=== PATIENT | female | born 1935 ===

== ENCOUNTER 2020-03-15 09:38 | Outpatient (REF) | payer MEDICARE, SELFPAY | END 2020-03-15 09:39 | disposition home or self-care (01) | LOC: HO.XRAY 09:38 | PROVIDERS: PCP Family Medicine; Visit Provider Family Medicine | DX: Z13.89 Encounter for screening for other disorder (principal) ==

== ENCOUNTER 2020-03-21 09:49 | Outpatient (REF) | payer MEDICARE, SELFPAY | END 2020-03-21 09:50 | disposition home or self-care (01) | LOC: HO.NEURO 09:49 | PROVIDERS: PCP Family Medicine; Visit Provider Family Medicine | DX: Z13.89 Encounter for screening for other disorder (principal) ==

== ENCOUNTER 2020-04-03 09:01 | Outpatient (REF) | payer MEDICARE, SELFPAY ==
--- NOTE | 2020-04-03 09:30 | EMG_ITS ---
HISTORY OF PRESENT ILLNESS: This 85-year-old woman with a 6-month history of bilateral upper extremity pain, numbness, and tingling with the left side being worse than the right. It also wakes her up at night. She has a history of diabetes for more than 30 years and is not insulin dependent. PHYSICAL EXAMINATION: On examination, she is alert and oriented with normal intellectual functions. Cranial nerves II through XII are normal. Muscle tone and strength are normal in all 4 extremities. Deep tendon reflexes symmetrical. No Tinel or Phalen sign. IMPRESSION: Rule out carpal tunnel syndrome. NERVE CONDUCTION EMG STUDY: Moderately severe carpal tunnel syndrome on the left, moderate carpal tunnel syndrome on the right. Mild compression of the right ulnar nerve at the elbow. Normal EMG of the left C5 through T1 innervated muscles. MD LORRI Ramirez/ISAÍAS / [id number]
== END 2020-04-03 09:02 | disposition home or self-care (01) ==
LOC: HO.NEURO 09:01
PROVIDERS: PCP Family Medicine; Visit Provider Family Medicine
DX: R20.2 Paresthesia of skin (principal)
CPT/HCPCS: 95860; 95886; 95913

== ENCOUNTER 2020-04-16 10:18 | Outpatient (REF) | payer MEDICARE, SELFPAY ==
--- NOTE | 2020-04-16 10:27 | XR_ITS ---
EXAMINATION: XR HAND, LEFT CLINICAL INFORMATION: Pain COMPARISON: Previous x-ray of the left wrist May 2007 TECHNIQUE: PA, lateral, and oblique views of the left hand. FINDINGS: Bone alignment is normal. No fracture or dislocation is seen. 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 There is periarticular soft tissue opacity calcification adjacent to the third MCP joint and in the region of the triangular fibrocartilage complex.. 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 Periarticular soft tissue calcification adjacent to the third MCP joint and in the region of the triangular fibrocartilage complex.
--- NOTE | 2020-04-16 10:27 | XR_ITS ---
EXAMINATION: XR HAND, RIGHT CLINICAL INFORMATION: Pain COMPARISON: Previous x-ray arch 2018 TECHNIQUE: PA, lateral, and oblique views of the right hand. FINDINGS: Bone alignment is normal. No acute fracture or dislocation is seen. There may be evidence of old trauma to the fifth metacarpal shaft. There is arthritis at the IP joints, first MCP and SHELTER joints with joint space narrowing and osteophyte formation. There is soft tissue calcification in the triangular fibrocartilage complex region. 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 Soft tissue calcification in the triangular fibrocartilage complex region. Old trauma to the right fifth metacarpal shaft.
--- NOTE | 2020-04-16 10:28 | XR_ITS ---
EXAMINATION: XR CERVICAL SPINE CLINICAL INFORMATION: Paresthesia of skin. COMPARISON: CT cervical spine noncontrast 12/15/2019; chest radiographs 12/01/2010. TECHNIQUE: 3 views of the cervical spine were obtained. FINDINGS: There is normal cervical lordosis. The vertebral bodies are normal in height. There is no vertebral compression or destructive process or prevertebral soft tissue swelling. Again, there are degenerative changes between anterior arch C1 and the dens. Degenerative disc changes are again noted at C3-C4, C4-C5, and C5-C6 with disc narrowing and variable anterior bridging osteophytes. There is mild retrolisthesis again seen C3 on C4. The lung apices are clear. There is an old calcified granuloma overlying right lung apex, similar to chest radiograph 2011. XR/XR cervical spine 3V IMPRESSION: 1. Multilevel degenerative changes. Mild retrolisthesis C3 on C4. 2. Old calcified granuloma right lung apex.
== END 2020-04-16 10:19 | disposition home or self-care (01) ==
LOC: HO.XRAY 10:18
PROVIDERS: PCP Family Medicine; Visit Provider Family Medicine
DX: M25.541 Pain in joints of right hand (principal); M25.542 Pain in joints of left hand; R20.2 Paresthesia of skin
CPT/HCPCS: 72040; 73130

== ENCOUNTER 2020-05-13 10:11 | Outpatient (REF) | payer MEDICARE, SELFPAY | END 2020-05-13 10:12 | disposition home or self-care (01) | LOC: HO.LAB 10:11 | PROVIDERS: PCP Family Medicine; Visit Provider Internal Medicine | DX: Z20.828 Contact with and (suspected) exposure to other viral communicable diseases (principal) | CPT/HCPCS: C9803; U0003 ==

== ENCOUNTER → 2020-08-23 09:51 | Outpatient (REF) | payer MEDICARE, SELFPAY ==
--- NOTE | 2020-08-23 10:30 | CA_ITS ---
Transthoracic Echocardiogram Patient (Last, First, Middle): Orin Hernandez, Gender: Female Date of : 1935 Age: 85 Procedure Date: 08/23/2020 Procedure Type: Transthoracic Echocardiogram Location: OP Height: 170.18 cm Weight: 92.53 kg BSA: 2.04 m2 Heart Rate: bpm BP: 122 / 80 mmHg Dry Cleaning Checker: KIERA Roa MD: Yoly Madrigal DO Auto Service Representative: Cesar Mcdonald MD Symptoms: G47.30 SLEEP APNEA Study Quality: Fair ECG Rhythm: Sinus Conclusions: - 1. Normal LV systolic function with impaired relaxation filling pattern 2. Normal cardiac valvular Doppler 3. Normal RV systolic pressure 4. No pericardial effusion Findings Left Ventricle Normal left ventricular size, thickness, and systolic function. The visually estimated ejection fraction is between 55-60%. Spectral Doppler is indicative of an impaired relaxation filling pattern. E/E prime ratio is between 8 and 15 consistent with indeterminate filling pressures. Right Ventricle Normal right ventricular cavity size and systolic function. Atria Both atria are normal in size. Interatrial shunt cannot be excluded. Aortic Valve There is mild calcification of the aortic valve. There is no aortic valve stenosis. There is no aortic valve regurgitation. Mitral Valve There is mild anterior and posterior mitral leaflet thickening. There is trace mitral valve regurgitation. There is no mitral valve stenosis. Pulmonic Valve The pulmonic valve was not well visualized. Tricuspid Valve Likely normal tricuspid valve structure and function. There is mild tricuspid valve regurgitation. The right ventricular systolic pressure is normal. The right ventricular systolic pressure is 30 mmHg. Normal right atrial pressure. There is no evidence of pulmonary hypertension. Great Vessels All visible segments of the aorta are normal in size. The pulmonary artery was not well visualized. Venous The inferior vena cava is normal in size and collapses greater than 50% with inspiration. Pericardium/Pleural There is no evidence of pericardial effusion. Cystic structure noted in the liver, dedicated imaging suggested Prior Study Comparison No change compared to prior study. Measurements 2D Linear Measurements IVSd: 1.04 0.6-0.9/0.6-1.0 cm LVIDd: 4.66 3.9-5.3/4.2-5.9 cm LVIDs: 3.11 2.0-3.6 cm LVPWd: 1.07 0.7-1.1 cm Ao Root: 3.22 2.1-3.5 cm LV Mass: 218.42 67-162/88-224 g LVOT Diam: 2.00 3.0+(-)1.3 cm Mitral Valve MV Pk E: 0.60 MV PK A: 0.77 MV Decel Time: 216.65 E/A: 0.78 E'Lateral: 0.06 E'Medial: 0.05 Decel Tate: 2.77 Aortic Valve AoV Pk Hany: 1.42 AoV Mn Hany: 0.98 AoV VTI: 0.30 AoV Pk Grad: 8.05 Aov Mn Grad: 4.26 LVOT LVOT Pk Hany: 0.86 LVOT Mn Hany: 0.62 LVOT VTI: 0.20 LVOT Pk Grad: 2.95 LVOT Mn Grad: 1.73 LVOT Diam: 2.00 LVOT Area: 3.14 Diastolic Function MV Pk E: 0.60 MV Pk A: 0.77 E/A: 0.78 E'Medial: 0.05 E' Laterial: 0.06 Tricuspid Valve TR Pk Hany: 2.60 TR Pk Grad: 27.05 RA Press: 3.00 RVSP: 30.00 Great Vessels Aorta Ao Root-2D: 3.22 2.0-3.7 cm Ao Asc: 3.08 2.1-3.4 cm Ao Arch: 3.07 Updated in Other Vendor System with Status of Final Cesar Mcdonald MD electronically signed on 08/23/2020 2:36:46 PM with status of Final
== END ==
LOC: HO.CARD 09:51
PROVIDERS: PCP Family Medicine; Visit Provider Family Medicine
DX: G47.30 Sleep apnea, unspecified (principal); R06.00 Dyspnea, unspecified
CPT/HCPCS: 93306

== ENCOUNTER 2021-01-02 11:29 | Outpatient (REF) | payer MEDICARE, SELFPAY | END 2021-01-02 11:30 | disposition home or self-care (01) | LOC: HO.LAB 11:29 | PROVIDERS: Visit Provider Internal Medicine | DX: Z20.822 Contact with and (suspected) exposure to COVID-19 (principal) | CPT/HCPCS: C9803; U0003; U0005 ==

== ENCOUNTER 2021-08-13 08:43 | Outpatient (REF) | payer OTHER, SELFPAY ==
--- NOTE | ~2021-08-13 | XR_ITS ---
EXAMINATION: XR CHEST XR ANKLE, LEFT XR FOOT, LEFT CLINICAL INFORMATION: Pain in left ankle. COMPARISON: None TECHNIQUE: Chest 2 views. Left foot 3 views and left ankle 2 views. FINDINGS: LEFT ANKLE: There is no visible acute fracture or dislocation. There is a large calcification posterior to the Achilles tendon likely old injury resulting in myositis ossificans abnormality. There is soft tissue calcification inferior to proximal plantaris tendon also likely old injury. There is moderate calcaneal heel and retrocalcaneal enthesophytes. Mild degenerative periarticular spurring seen along the dorsal intertarsal joints. The ankle mortise and subtalar joints are normal. There is [id number] bimalleolar soft tissue swelling. 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 Moderate-sized retrocalcaneal and calcaneal heel enthesophytes. There is soft tissue calcification inferior to proximal plantaris tendon also likely from old injury. No acute fracture or dislocation seen.
--- NOTE | ~2021-08-13 | XR_ITS ---
EXAMINATION: XR CHEST XR ANKLE, LEFT XR FOOT, LEFT CLINICAL INFORMATION: Pain in left ankle. COMPARISON: None TECHNIQUE: Chest 2 views. Left foot 3 views and left ankle 2 views. FINDINGS: LEFT ANKLE: There is no visible acute fracture or dislocation. There is a large calcification posterior to the Achilles tendon likely old injury resulting in myositis ossificans abnormality. There is soft tissue calcification inferior to proximal plantaris tendon also likely old injury. There is moderate calcaneal heel and retrocalcaneal enthesophytes. Mild degenerative periarticular spurring seen along the dorsal intertarsal joints. The ankle mortise and subtalar joints are normal. There is [id number] bimalleolar soft tissue swelling. 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 Moderate-sized retrocalcaneal and calcaneal heel enthesophytes. There is soft tissue calcification inferior to proximal plantaris tendon also likely from old injury. No acute fracture or dislocation seen.
--- NOTE | ~2021-08-13 | XR_ITS ---
EXAMINATION: XR CHEST XR ANKLE, LEFT XR FOOT, LEFT CLINICAL INFORMATION: Pain in left ankle. COMPARISON: None TECHNIQUE: Chest 2 views. Left foot 3 views and left ankle 2 views. FINDINGS: LEFT ANKLE: There is no visible acute fracture or dislocation. There is a large calcification posterior to the Achilles tendon likely old injury resulting in myositis ossificans abnormality. There is soft tissue calcification inferior to proximal plantaris tendon also likely old injury. There is moderate calcaneal heel and retrocalcaneal enthesophytes. Mild degenerative periarticular spurring seen along the dorsal intertarsal joints. The ankle mortise and subtalar joints are normal. There is [id number] bimalleolar soft tissue swelling. 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 Moderate-sized retrocalcaneal and calcaneal heel enthesophytes. There is soft tissue calcification inferior to proximal plantaris tendon also likely from old injury. No acute fracture or dislocation seen.
== END 2021-08-13 08:44 | disposition home or self-care (01) ==
LOC: HO.XRAY 08:43
PROVIDERS: PCP Family Medicine; Visit Provider Family Medicine
DX: J45.21 Mild intermittent asthma with (acute) exacerbation (principal); M79.672 Pain in left foot; M79.671 Pain in right foot; R05.9 Cough, unspecified
CPT/HCPCS: 71046; 73600; 73630

== ENCOUNTER 2023-07-15 07:45 | Inpatient (IN) | payer MEDICARE, SELFPAY ==
--- NOTE | ~2023-07-15 | NM_ITS ---
EXAMINATION: RENAL DYNAMIC IMAGING STUDY WITH LASIX CLINICAL INFORMATION: A 88-year-old female found to have moderate right-sided hydroureteronephrosis on recent CT scan of the abdomen and pelvis done on 07/15/2023. The patient is also known to have bilateral nonobstructing radiopaque renal calculi. COMPARISON: CT of the abdomen and pelvis done without intravenous contrast on 07/15/2023. TECHNIQUE: Serial gamma scintillation camera images were obtained over the posterior trunk during the initial transit and subsequent distribution of a bolus intravenous injection of 10 mCi of Tc-99m DTPA. At 30 minutes later, 40 mg of Lasix was administered intravenously and an additional 30 minutes of images obtained. FINDINGS: Initial rapid sequence images show prompt and bilaterally symmetrical flow/perfusion to the kidneys. Subsequent sequential static images obtained up to 30 minutes show normal symmetric radiotracer uptake and slightly delayed excretion of radiotracer from the left kidney when compared to the right. Excretion of radiotracer is subsequently identified from both kidneys with visualization of both pelvic calyceal system and both ureters and the urinary bladder. Following Lasix administration, progressive washout of radiotracer is noted bilaterally, and no evidence of any obstruction on either side on visual observation. The T-1/2 washout times following Lasix administration are: No meaningful time could be be calculated. The relative function of the two kidneys based on the 2-3 minute images are: Left 50.14% and right 49.86%. NM/NM renal flow w pharm int IMPRESSION: LEFT KIDNEY: Slightly delayed excretion of radiotracer is noted when compared to the normal right side without any definite obstruction. Relative split renal function is 50.14%. RIGHT KIDNEY: Normal scintigraphic appearance with split renal function of 49.86%.
--- NOTE | ~2023-07-15 | CT_ITS ---
EXAMINATION: CT THORACIC SPINE WITHOUT CONTRAST CT LUMBAR SPINE WITHOUT CONTRAST CLINICAL INFORMATION: Fall. Weakness. COMPARISON: Abdominal CT dated 06/30/2019. TECHNIQUE: CT of the thoracic and lumbar spine was obtained without intravenous administration of contrast. This CT examination was performed using dose optimization techniques as appropriate, variously including the following: *Automated exposure control *Adjustment of mA and/or kV according to patient size (this includes techniques or standardized protocols for targeted exams where dose is matched to indication/reason for exam; i.e. extremities or head) *Use of iterative reconstruction technique DLP: 859, 476 mGy-cm. FINDINGS: THORACIC SPINE: No compression fractures are visible. Bulky anterolateral endplate osteophytic spurring is present throughout the thoracic spine. No fractures are seen. Thoracic kyphosis noted. There is no significant central canal stenosis. Multilevel facet arthropathy evident, though without severe foraminal encroachment. The paraspinal soft tissues are normal. Mild subsegmental atelectatic changes are visible dependently in the lungs. Small calcified granuloma noted posteriorly in the right upper lobe. Although limited by CT evaluation, no large disc protrusions are evident. The visualized mediastinum is grossly normal. There is a small gastric hiatal hernia. Small nonobstructive calculi are visible in the right kidney. A large hepatic cyst is partially visualized, described on prior abdominal CT imaging from 06/30/2019. LUMBAR SPINE: Multilevel anterior endplate spurring noted. There is a minimal anterolisthesis at the L4-L5 level without L4 pars defects. Nonspecific mild calcification visible in the annulus of the discs. No fractures are identified. There are moderate degenerative changes of the sacroiliac joints. L1-L2: Mild posterior subluxation and disc bulge with moderate facet arthropathy. No central canal stenosis. Mild bilateral foraminal narrowing. L2-L3: Generalized disc bulge and hypertrophic facet arthropathy result in moderate central canal stenosis. Bulging disc with scma-hr-movaqzke foraminal encroachment, worse on the left side. L3-L4: Minimal anterolisthesis and generalized disc bulge with endplate spurring and advanced facet arthropathy result in severe central canal stenosis with thecal sac compression. Furrbykh-zz-tpzbwi foraminal narrowing, worse on the right side. L4-L5: Mild anterolisthesis and advanced hypertrophic facet arthropathy with a diffuse disc bulge resulting in thecal sac compression and severe central canal stenosis. Severe bilateral foraminal narrowing as well. L5-S1: Broad-based disc bulge and nnyqxoym-fd-wlfric facet arthrosis. Mild central canal stenosis. Bulging disc and endplate spurring with moderate foraminal encroachment, more so on the left side. Left side colonic diverticulosis partially visualized. Mild right-sided hydroureteronephrosis is visible. No obstructing calculus is seen within the imaged portions of the ureter. The distal ureters near the bladder are not included in the yvrhq-hl-waop of imaging. CT/CT thoracic spine wo IV con IMPRESSION: THORACIC SPINE: 1. No acute fracture. Bulky anterolateral endplate osteophytic spurring. No significant central canal stenosis or foraminal narrowing. 2. Small gastric hiatal hernia. LUMBAR SPINE: 1. Multilevel lumbar spondylosis with severe central canal stenosis at the L3-L4 and L4-L5 levels. Moderate central canal stenosis at the L2-L3 level. 2. Mild anterolisthesis as well at the L4-L5 level with advanced facet arthropathy and a diffuse disc bulge. Severe foraminal narrowing. 3. Extensive left-sided colonic diverticulosis. 4. Mild right-sided hydroureteronephrosis without an obstructing calculus within the imaged portions of the ureter. Scattered, small nonobstructing right renal calculi. The distal ureters near the bladder are not included in the zeydz-qp-nuvb of imaging. Currently correlate. Imaging findings reported to Dr. Barrett at 10:15 AM on 07/15/2023.
--- NOTE | ~2023-07-15 | CT_ITS ---
EXAMINATION: CT THORACIC SPINE WITHOUT CONTRAST CT LUMBAR SPINE WITHOUT CONTRAST CLINICAL INFORMATION: Fall. Weakness. COMPARISON: Abdominal CT dated 06/30/2019. TECHNIQUE: CT of the thoracic and lumbar spine was obtained without intravenous administration of contrast. This CT examination was performed using dose optimization techniques as appropriate, variously including the following: *Automated exposure control *Adjustment of mA and/or kV according to patient size (this includes techniques or standardized protocols for targeted exams where dose is matched to indication/reason for exam; i.e. extremities or head) *Use of iterative reconstruction technique DLP: 859, 476 mGy-cm. FINDINGS: THORACIC SPINE: No compression fractures are visible. Bulky anterolateral endplate osteophytic spurring is present throughout the thoracic spine. No fractures are seen. Thoracic kyphosis noted. There is no significant central canal stenosis. Multilevel facet arthropathy evident, though without severe foraminal encroachment. The paraspinal soft tissues are normal. Mild subsegmental atelectatic changes are visible dependently in the lungs. Small calcified granuloma noted posteriorly in the right upper lobe. Although limited by CT evaluation, no large disc protrusions are evident. The visualized mediastinum is grossly normal. There is a small gastric hiatal hernia. Small nonobstructive calculi are visible in the right kidney. A large hepatic cyst is partially visualized, described on prior abdominal CT imaging from 06/30/2019. LUMBAR SPINE: Multilevel anterior endplate spurring noted. There is a minimal anterolisthesis at the L4-L5 level without L4 pars defects. Nonspecific mild calcification visible in the annulus of the discs. No fractures are identified. There are moderate degenerative changes of the sacroiliac joints. L1-L2: Mild posterior subluxation and disc bulge with moderate facet arthropathy. No central canal stenosis. Mild bilateral foraminal narrowing. L2-L3: Generalized disc bulge and hypertrophic facet arthropathy result in moderate central canal stenosis. Bulging disc with hlue-kt-isokrrxx foraminal encroachment, worse on the left side. L3-L4: Minimal anterolisthesis and generalized disc bulge with endplate spurring and advanced facet arthropathy result in severe central canal stenosis with thecal sac compression. Dmoknkdg-bs-kspbpx foraminal narrowing, worse on the right side. L4-L5: Mild anterolisthesis and advanced hypertrophic facet arthropathy with a diffuse disc bulge resulting in thecal sac compression and severe central canal stenosis. Severe bilateral foraminal narrowing as well. L5-S1: Broad-based disc bulge and jhqsoxoi-wq-ejfaqo facet arthrosis. Mild central canal stenosis. Bulging disc and endplate spurring with moderate foraminal encroachment, more so on the left side. Left side colonic diverticulosis partially visualized. Mild right-sided hydroureteronephrosis is visible. No obstructing calculus is seen within the imaged portions of the ureter. The distal ureters near the bladder are not included in the pyguv-uw-xbhp of imaging. CT/CT lumbar spine wo IV con IMPRESSION: THORACIC SPINE: 1. No acute fracture. Bulky anterolateral endplate osteophytic spurring. No significant central canal stenosis or foraminal narrowing. 2. Small gastric hiatal hernia. LUMBAR SPINE: 1. Multilevel lumbar spondylosis with severe central canal stenosis at the L3-L4 and L4-L5 levels. Moderate central canal stenosis at the L2-L3 level. 2. Mild anterolisthesis as well at the L4-L5 level with advanced facet arthropathy and a diffuse disc bulge. Severe foraminal narrowing. 3. Extensive left-sided colonic diverticulosis. 4. Mild right-sided hydroureteronephrosis without an obstructing calculus within the imaged portions of the ureter. Scattered, small nonobstructing right renal calculi. The distal ureters near the bladder are not included in the npwrg-ct-nkor of imaging. Currently correlate. Imaging findings reported to Dr. Barrett at 10:15 AM on 07/15/2023.
--- NOTE | ~2023-07-15 | MR_ITS ---
EXAMINATION: MR CERVICAL SPINE WITHOUT CONTRAST CLINICAL INFORMATION: Trauma. Bilateral upper extremity weakness. COMPARISON: CT cervical spine from 07/15/2023. TECHNIQUE: MRI of the cervical spine was obtained using routine sequences without contrast. The patient was only able to tolerate sagittal T2 and T1 weighted imaging. The patient was unable to tolerate additional imaging at this time. No axial imaging obtained. FINDINGS: Mild degenerative retrolisthesis of C5 on C6. Otherwise, normal anatomic alignment. Advanced degenerative disc disease at C3-C4. Moderate degenerative disc disease at C2-C3 and from C4-C6. Mild degenerative disc disease at all additional levels. No demonstrated overt marrow replacing edema. The vertebral body heights are well-maintained. There appears to be a prominent disc-osteophyte complex at C3-C4. Moderate disc-osteophyte complexes at all additional levels from C2-C7. There appears to be severe spinal canal stenosis at C3-C4 with cord compression and T2 hyperintense myelomalacia at this level. There appear to be at least moderate spinal canal stenoses at C2-C3, C4-C5, C5-C6, and C6-C7. SPINAL LEVELS: No axial imaging obtained. MR/MR cervical spine wo con IMPRESSION: Limited exam. The patient was only able to tolerate limited sagittal imaging. Moderate to advanced multilevel degenerative spinal arthropathy of the cervical spine. There appears to be severe spinal canal stenosis at C3-C4 with cord compression and myelomalacia. There also appear to be at least moderate spinal canal stenoses at C2-C3, C4-C5, C5-C6, and C6-C7.
--- NOTE | ~2023-07-15 | CT_ITS ---
EXAMINATION: CT HEAD WITHOUT CONTRAST CT CERVICAL SPINE WITHOUT CONTRAST CLINICAL INFORMATION: Fall with numbness and weakness in upper extremity. COMPARISON: X-ray cervical spine dated 04/16/2020. TECHNIQUE: Contiguous axial imaging was performed from the skull base to vertex without intravenous administration of contrast. Multidetector helical imaging was performed through the cervical spine. This CT examination was performed using dose optimization techniques as appropriate, variously including the following: *Automated exposure control *Adjustment of mA and/or kV according to patient size (this includes techniques or standardized protocols for targeted exams where dose is matched to indication/reason for exam; i.e. extremities or head) *Use of iterative reconstruction technique DLP: 761, 411 mGy-cm. FINDINGS: HEAD: There is no evidence of acute intracranial hemorrhage or territorial infarction. No abnormal mass effect or midline shift is seen. Mcghee to white matter differentiation is well preserved. No extra-axial fluid collections are identified. Urzj-ec-yjkbimgs chronic white matter microangiopathic changes visible with generalized brain parenchymal volume loss and concordant ex vacuo prominence of the ventricles. The osseous structures and soft tissues are normal. The mastoid air cells are well aerated. Mild left sphenoid sinus mucosal thickening noted. CERVICAL SPINE: No acute fracture or subluxation is identified in the cervical spine. There are broad-based central disc bulge/protrusions with calcification of the annulus at both the C3-C4 and C4-C5 levels resulting in significant thecal sac compression. There is suspected moderate cord compression at the C3-C4 level as well. Underlying disc-osteophyte complexes result in significant foraminal encroachment with hypertrophic facet arthropathy. There is moderate disc space narrowing with exuberant uncovertebral joint spurring at the C5-C6 level resulting in significant left foraminal narrowing and mild ventral thecal sac distortion. A partially calcified central disc protrusion also mildly impresses upon the ventral thecal sac at the C6-C7 level. The atlantoaxial articulation is normally maintained, though there are moderate degenerative changes of the odontoid tip and anterior arch of C1 with retrodental calcification. The paraspinal soft tissues are normal. The lung apices are clear. CT/CT cervical spine wo IV con IMPRESSION: 1. No acute intracranial hemorrhage or territorial infarction. Rjxc-bm-smndrpbl chronic white matter microangiopathy. 2. No evidence of acute cervical spine traumatic injury. Significant disc-osteophyte complexes at the C3-C4 and C4-C5 levels with foraminal encroachment. 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 If the patient has any underlying myelopathic symptoms or suspicion for cord injury, a follow-up MRI of the cervical spine would be recommended. Imaging findings reported to Dr. Barrett at 10:50 AM on 07/15/2023.
--- NOTE | ~2023-07-15 | CT_ITS ---
EXAMINATION: CT ABDOMEN AND PELVIS WITHOUT CONTRAST CLINICAL INFORMATION: Generalized weakness. Question obstructive uropathy. COMPARISON: Same day CT imaging of the thoracolumbar spine, renal ultrasound November 29, [address] abdomen pelvis June 30, 2019 TECHNIQUE: Multidetector volumetric imaging was performed from the superior aspect of the liver through the pubic symphysis. Sagittal and coronal reformatted images were obtained on the technologist's workstation. This CT examination was performed using dose optimization techniques as appropriate, variously including the following: *Automated exposure control *Adjustment of mA and/or kV according to patient size (this includes techniques or standardized protocols for targeted exams where dose is matched to indication/reason for exam; i.e. extremities or head) *Use of iterative reconstruction technique DLP: 642 mGy-cm FINDINGS: Visualized lung bases demonstrate mild dependent atelectasis. The liver is normal in size but demonstrates diffusely decreased attenuation. A large approximately 10 cm cyst is again noted within the left hepatic lobe. The gallbladder surgically absent. The pancreas, spleen and adrenal glands are unremarkable. Tiny bilateral renal calculi are again noted. There is moderate right-sided hydroureteronephrosis. No obstructing calculus is identified. Normal caliber loops of small and large bowel. Moderate colonic stool burden. Moderate to severe colonic diverticulosis. Normal appendix. Normal caliber abdominal aorta demonstrating moderate atherosclerotic disease. No retroperitoneal lymphadenopathy. Abnormal appearance of the bladder with somewhat localized bladder wall thickening along the right mid lateral wall in the region of ureteral insertion, nonspecific. The uterus is surgically absent. Small fat-containing right inguinal hernia. No gross free pelvic fluid. No inguinal lymphadenopathy. Diffuse osteopenia. Moderate to severe degenerative changes of the spine. CT/CT abdomen pelvis wo IV con IMPRESSION: 1. Moderate right-sided hydroureteronephrosis. No obstructing calculus is identified. 2. Abnormal appearance of the bladder with somewhat localized bladder wall thickening along the right mid lateral wall in the region of ureteral insertion. This is a nonspecific finding but may be the cause of hydronephrosis. Direct inspection may be warranted. Neoplasm not excluded. 3. Bilateral nonobstructing renal calculi noted. 4. Colonic diverticulosis. 5. Diffusely decreased liver attenuation suggesting hepatic steatosis. Correlation with liver enzymes recommended. Fleischner guidelines were followed.
--- NOTE | ~2023-07-15 | XR_ITS ---
EXAMINATION: XR CHEST CLINICAL INFORMATION: Generalized weakness COMPARISON: Chest x-ray August 13, 2021 TECHNIQUE: Frontal view of the chest was obtained. FINDINGS: Cardiac silhouette is normal in size. The lungs are adequately aerated. There is no lobar consolidation. No pleural effusion or pneumothorax. Degenerative changes of the spine and shoulders. XR/XR chest 1V IMPRESSION: No acute pulmonary pathology.
[2023-07-15 08:03] VITALS: BP 143/71; BP 148/82; PULSE 86; PULSE 92; RESP 15; TEMP 36.5; O2SAT 100; O2SAT 99; BMI 31.9
--- NOTE | 2023-07-15 08:32 | ECG_ITS ---
Test Reason : generalized weakness Blood Pressure : / mmHG Vent. Rate : 078 BPM Atrial Rate : 078 BPM P-R Int : 178 ms QRS Dur : 072 ms QT Int : 398 ms P-R-T Axes : 065 016 023 degrees QTc Int : 453 ms Normal sinus rhythm Low voltage QRS Borderline ECG When compared with ECG of 17-SEP-2016 10:29, Minimal criteria for Inferior infarct are no longer Present Nonspecific T wave abnormality no longer evident in Anterior leads Referred By: Meme Barrett Electronically Signed By:JOSE MICHELLE MD
--- NOTE | 2023-07-15 08:35 | ED.GENADULT ---
HPI - General Adult General Chief complaint: General Medical Stated complaint: FALL 1 MONTH AGO,BODY PAIN PER EMS Time Seen by Provider: 07/15/23 08:11 Source: patient, EMS and education site manager Mode of arrival: EMS Limitations: no limitations History of Present Illness HPI narrative: 88-year-old female recently came from [place] a month ago patient was at her usual health status until she sustained a mechanical fall month ago in [place], patient stated that she needed hospitalization for 3 days then was discharged ever since the fall patient been having generalized weakness, feels like needles and numbness in both arms and legs, patient is able to ambulate before the fall but now she is mostly bed ridden. Son called the ambulance to send her to the hospital because her symptoms is worsening. Related Data Allergies Allergy/AdvReac Type Severity Reaction Status Date / Time latex [LATEX] Allergy Unknown RASH Unverified 02/08/20 17:35 ELASTIC Allergy Unknown RASH Uncoded 02/08/20 17:35 Latex Gloves Allergy Unknown Uncoded 10/26/19 00:00 Review of Systems Review of Systems: All other systems are reviewed and are negative Constitutional: Reports as per HPI and Reports no additional constitutional complaints Eyes: Reports as per HPI and Reports no additional eye complaints Reports system reviewed and no additional complaints, except as documented Cardiovascular: Reports as per HPI and Reports no additional cardiovascular complaints Respiratory: Reports as per HPI and Reports no additional respiratory complaints Gastrointestinal: Reports as per HPI and Reports no additional gastrointestinal complaints Genitourinary: Reports no additional female genitourinary complaints Musculoskeletal: Reports no additional musculoskeletal complaints Skin/Breast: Reports system reviewed and no additional complaints, except as docu Psychiatric: Reports no additional psychiatric complaints Endocrine: Reports no additional endocrine complaints Hematologic/Lymphatic: Reports no additional hematologic/lymphatic complaints Allergic/Immunologic: Reports no additional allergic/immunologic complaints Reports system reviewed and no additional complaints, except as documented and Reports Abnormal speech present [facility] Social History Social History Smoked in Last 30 Days: No Use of substances other than those prescribed or required for medical reasons: No Advance Directives: No Advance Directives Information Provided: Yes Physical Exam ED Vital Signs: Vital Signs - 24 hr 07/15/23 08:03 07/15/23 10:38 07/15/23 11:50 Temperature 97.7 F 98.0 F 97.4 F Pulse Rate 86 91 86 Respiratory Rate 15 16 14 Blood Pressure 143/71 H 154/69 H 132/64 Pulse Oximetry 100 100 98 Oxygen Delivery Method Room Air Room Air Room Air 07/15/23 15:42 Temperature 97.6 F Pulse Rate 81 Respiratory Rate 14 Blood Pressure 145/71 H Pulse Oximetry 100 Oxygen Delivery Method Room Air BMI result Body Mass Index 31.9 Vital signs have been reviewed and appear to be correct. Blood pressure elevated. Heart rate normal. Respiratory rate normal. Temperature normal. Oxygen saturation normal. Appearance: Alert. Oriented X3. No acute distress. Head: Normal external exam. Normocephalic. Atraumatic. No [place] signs noted. No raccoon eyes noted Eyes: PERRLA. EOMI. Conjunctiva and sclera normal. Eyelids normal. ENT: TM's Normal. Pharynx normal. Uvula midline. Moist mucous membranes. No trismus noted. No drooling noted. No muffled voice noted. Neck: Normal inspection. Neck supple. FROM. No adenopathy. Thyroid Normal. No meningeal signs. No neck mass noted. CVS: Normal heart rate and rhythm. Heart sound normal. No murmurs noted. Pulses normal throughout. Respiratory: No respiratory distress. Painless inspiration. Breath sounds normal. No wheezes/rales/rhonchi noted. Chest nontender. No accessory muscle usage noted or decreased air movement noted. Abdomen: Soft and nontender. Bowel sounds normal in all 4 quadrants. No distention noted. No organomegaly noted. No visible injury noted. Back: R CVA tenderness. Full range of motion noted. Skin: Skin warm and dry. Normal skin color. Normal skin turgor. No rashes/lesions/lacerations noted. Extremities: No lower extremity edema. Extremities exhibit normal range of motion. Extremities nontender. Neuro: Oriented X 3. Cranial nerve exam: II-XII are grossly intact No motor deficit. No sensory deficit. Reflexes normal. Course Reevaluation(s) Reevaluation #1: 1. UTI/right pyelonephritis/abnormality and gallbladder patient is not meeting criteria for SIRS or sepsis will cover with ceftriaxone, get inpatient Urology consult as discussed with Dr. Nielson 2. had a remote fall a month ago in [place] ever since she is unable to ambulate without advertising assistant today been complaining of for extremities increased numbness and generalized body ache, CT C/T/L spines showing no acute traumatic injury rather chronic stenosis pending MRI of the cervical spine to rule out cervical spinal cord stenosis that will be reviewed by Dr. Guerrero. 3. Lactic acidosis due to dehydration and improved after hydration, patient not an septic shock or severe sepsis. Time: 15:52 Medications Administered Discontinued Medications Generic Name Dose Route Start Last Admin Trade Name Freq PRN Reason Stop Dose Admin Ceftriaxone Sodium 1 gm/ 50 mls @ 100 mls/hr 07/15/23 11:46 07/15/23 13:20 Sodium Chloride IV 07/15/23 12:15 Infused ONCE ONE Infusion Medical Decision Making Differential Diagnosis Differential Diagnoses: The differential diagnosis associated with the presentation includes (UTI, obstructive uropathy, sepsis, spinal cord stenosis, back injuries, intracranial bleed, electrolyte derangement, severe anemia.) Admission/Observation Consideration of admission/observation: Escalation of care including admission/observation considered Consult Healthcare Provider Management of the patient was discussed with: Hospitalist (Dr. nielson) Lab Data MDM Lab Attestation statement: I reviewed the patient's lab results. 07/15/23 09:44 07/15/23 09:09 Labs: Lab Results 07/15/23 07/15/23 07/15/23 Range/Units 09:09 09:44 11:23 WBC 5.9 (4.8-10.8) X10*3/uL RBC 3.14 L (4.20-5.50) X10*6/uL Hgb 9.8 L (12.0-16.0) g/dl Hct 31.7 L (37.0-47.0) % MCV 101.0 H (80.0-98.0) fL MCH 31.2 (27.0-33.0) pg MCHC 30.9 L (31.0-35.0) g/dl RDW 13.5 (11.0-16.0) % Plt Count 189 (160-400) X10*3/uL MPV 8.5 L (9.4-12.3) fL Immature Gran % (Auto) 0.5 H (0.0-0.4) % Neut % (Auto) 68.4 (45-73) % Lymph % (Auto) 22.3 (20-40) % [place]arrard % (Auto) 7.2 (2-11) % Eos % (Auto) 0.9 (0-4) % Baso % (Auto) 0.7 (0-2) % Lymph # (Auto) 1.3 (1.2-4.9) X10*3/uL [place]ard # (Auto) 0.4 (0.1-1.2) X10*3/uL Eos # (Auto) 0.1 (0.0-0.4) X10*3/uL Baso # (Auto) 0.0 (0.0-0.2) X10*3/uL Abs Immat Gran (auto) 0.03 (0.00-0.03) X10*3/uL Absolute Neuts (auto) 4.0 (2.0-8.3) x10*3/uL Absolute Nucleated RBC 0.000 (0.0-0.012) X10*3/uL Nucleated RBC % (auto) 0.0 (0.0-0.2) /100WBC Sodium 143 (135-145) mmol/L Potassium 4.6 (3.3-5.1) mmol/L Chloride 113 H (96-108) mmol/L Carbon Dioxide 23 (22-29) mmol/L Anion Gap 12 (12-20) BUN 22 H (9-16) mg/dL Creatinine 0.86 (0.5-1.4) mg/dL Estim Creat Clear Calc 51.2 Estimated GFR > 60 Random Glucose 98 (60-115) mg/dL Lactic Acid (0.5-2.0) mmol/L Lactic Acid F/U @ 2Hr (0.5-2.0) mmol/L Calcium 9.2 (8.4-10.2) mg/dL Total Bilirubin 0.5 (0.0-1.0) mg/dL Direct Bilirubin 0.2 (0.0-0.5) mg/dL AST 26 (5-31) U/L ALT 8 (0-31) U/L Alkaline Phosphatase 68 (39-117) U/L Total Creatine Kinase 14 L (26-140) U/L Troponin I High Sens 8.9 (<3.5-17.0) ng/L B-Natriuretic Peptide 66 (<100) pg/mL Total Protein 6.9 (6.5-8.0) g/dL Albumin 3.3 L (3.5-5.0) g/dL Lipase 42 (8-78) U/L Urine Color Yellow Urine Appearance Cloudy Urine pH 7.0 (5.0-9.0) Ur Specific [place] 1.015 (1.005-1.025) Urine Protein 30 (1+) H (Neg-Trace) mg/dL Urine Glucose (UA) Negative (Negative) mg/dL Urine Ketones Negative (Negative) mg/dL Urine Blood Trace H (Negative) Urine Nitrite Positive H (Negative) Ur Leukocyte Esterase Large (3+) H (Negative) Urine RBC 0-2 (0-2) /HPF Urine WBC >50 H (0-5) /HPF Ur Squamous Epith Cells 0-2 (0-2) /HPF Urine Bacteria 4+ (None Seen) Hyaline Casts 0-2 (0-2) /LPF Influenza Type A (PCR) NEGATIVE (Negative) Influenza Type B (PCR) NEGATIVE (Negative) RSV RNA Qual (PCR) NEGATIVE (Negative) SARS-CoV-2 RNA (RT-PCR) NEGATIVE (Negative) 07/15/23 07/15/23 Range/Units 12:08 15:33 WBC (4.8-10.8) X10*3/uL RBC (4.20-5.50) X10*6/uL Hgb (12.0-16.0) g/dl Hct (37.0-47.0) % MCV (80.0-98.0) fL MCH (27.0-33.0) pg MCHC (31.0-35.0) g/dl RDW (11.0-16.0) % Plt Count (160-400) X10*3/uL MPV (9.4-12.3) fL Immature Gran % (Auto) (0.0-0.4) % Neut % (Auto) (45-73) % Lymph % (Auto) (20-40) % Garrard % (Auto) (2-11) % Eos % (Auto) (0-4) % Baso % (Auto) (0-2) % Lymph # (Auto) (1.2-4.9) X10*3/uL [place]ard # (Auto) (0.1-1.2) X10*3/uL Eos # (Auto) (0.0-0.4) X10*3/uL Baso # (Auto) (0.0-0.2) X10*3/uL Abs Immat Gran (auto) (0.00-0.03) X10*3/uL Absolute Neuts (auto) (2.0-8.3) x10*3/uL Absolute Nucleated RBC (0.0-0.012) X10*3/uL Nucleated RBC % (auto) (0.0-0.2) /100WBC Sodium (135-145) mmol/L Potassium (3.3-5.1) mmol/L Chloride (96-108) mmol/L Carbon Dioxide (22-29) mmol/L Anion Gap (12-20) BUN (9-16) mg/dL Creatinine (0.5-1.4) mg/dL Estim Creat Clear Calc Estimated GFR Random Glucose (60-115) mg/dL Lactic Acid 2.2 H* (0.5-2.0) mmol/L Lactic Acid F/U @ 2Hr 1.0 (0.5-2.0) mmol/L Calcium (8.4-10.2) mg/dL Total Bilirubin (0.0-1.0) mg/dL Direct Bilirubin (0.0-0.5) mg/dL AST (5-31) U/L ALT (0-31) U/L Alkaline Phosphatase (39-117) U/L Total Creatine Kinase (26-140) U/L Troponin I High Sens (<3.5-17.0) ng/L B-Natriuretic Peptide (<100) pg/mL Total Protein (6.5-8.0) g/dL Albumin (3.5-5.0) g/dL Lipase (8-78) U/L Urine Color Urine Appearance Urine pH (5.0-9.0) Ur Specific [place] (1.005-1.025) Urine Protein (Neg-Trace) mg/dL Urine Glucose (UA) (Negative) mg/dL Urine Ketones (Negative) mg/dL Urine Blood (Negative) Urine Nitrite (Negative) Ur Leukocyte Esterase (Negative) Urine RBC (0-2) /HPF Urine WBC (0-5) /HPF Ur Squamous Epith Cells (0-2) /HPF Urine Bacteria (None Seen) Hyaline Casts (0-2) /LPF Influenza Type A (PCR) (Negative) Influenza Type B (PCR) (Negative) RSV RNA Qual (PCR) (Negative) SARS-CoV-2 RNA (RT-PCR) (Negative) Independent Interpretation I performed an independent interpretation of an: CT Scan (Head/C-spine/T-spine/L-spine/abdomen and pelvis:) Radiology Impression Discussion of test interpretation with radiology: I have reviewed the radiologist's reading. (1. Moderate right-sided hydroureteronephrosis. No obstructing calculus is identified. 2. Abnormal appearance of the bladder with somewhat localized bladder wall thickening along the right mid lateral wall in the region of ureteral insertion. This is a nonspecific finding but may be the cause of hy) Discharge Plan Discharge Clinical Impression: Acute pyelonephritis, Unable to ambulate Patient Disposition: Admitted As Inpatient
[2023-07-15 09:50] LABS: B Type Natriuretic Peptide 66 pg/mL (<100)
[2023-07-15 09:51] LABS: Alanine Aminotransferase 8 U/L (0-31); Albumin Level 3.3 g/dL (3.5-5.0); Alkaline Phosphatase 68 U/L (39-117); Anion Gap 12 (12-20); Aspartate Amino Transferase 26 U/L (5-31); Bilirubin Direct 0.2 mg/dL (0.0-0.5); Bilirubin Total 0.5 mg/dL (0.0-1.0); Blood Urea Nitrogen 22 mg/dL (9-16); Calcium 9.2 mg/dL (8.4-10.2); Carbon Dioxide 23 mmol/L (22-29); Chloride 113 mmol/L (96-108); Creatinine Clr Calc Pharmacy 51.2; Estimated Glomerular Filt Rate > 60; Glucose Random 98 mg/dL (60-115); Lipase 42 U/L (8-78); Potassium 4.6 mmol/L (3.3-5.1); Sodium 143 mmol/L (135-145); Total Protein 6.9 g/dL (6.5-8.0); Troponin-I High Sensitivity 8.9 ng/L (<3.5-17.0)
[2023-07-15 09:55] LABS: Influenza A PCR NEGATIVE (Negative); Influenza B PCR NEGATIVE (Negative); Resp Syncy Virus RNA Qual PCR NEGATIVE (Negative); SARS COV2 PCR INHOUSE NEGATIVE (Negative)
[2023-07-15 09:56] LABS: Basophils Percent Auto 0.7 % (0-2); Eosinophils Absolute Auto 0.1 X10*3/uL (0.0-0.4); Eosinophils Percent Auto 0.9 % (0-4); Hematocrit 31.7 % (37.0-47.0); Hemoglobin 9.8 g/dl (12.0-16.0); Imm Gran Abs Auto 0.03 X10*3/uL (0.00-0.03); Imm Gran Pct Auto 0.5 % (0.0-0.4); Lymphocytes Absolute Auto 1.3 X10*3/uL (1.2-4.9); Lymphocytes Percent Auto 22.3 % (20-40); Mean Corpuscular HGB Conc 30.9 g/dl (31.0-35.0); Mean Corpuscular Hemoglobin 31.2 pg (27.0-33.0); Mean Platelet Volume 8.5 fL (9.4-12.3); Monocytes Absolute Auto 0.4 X10*3/uL (0.1-1.2); Monocytes Percent Auto 7.2 % (2-11); Neutrophils Percent Auto 68.4 % (45-73); Platelet Count 189 X10*3/uL (160-400); Red Blood Count 3.14 X10*6/uL (4.20-5.50); Red Cell Distribution Width 13.5 % (11.0-16.0); White Blood Count 5.9 X10*3/uL (4.8-10.8)
[2023-07-15 10:38] VITALS: BP 154/69; PULSE 91; RESP 16; TEMP 36.7; O2SAT 100
[2023-07-15 11:37] LABS: Appearance Urine Cloudy; Color Urine Yellow; Glucose Urine UA Negative (Negative); Leukocyte Esterase Urine Large (3+) (Negative); Nitrite Urine Positive (Negative); Specific Gravity - Urine 1.015 (1.005-1.025); UMIC TRIGGER UACC YES; Urine Blood Trace (Negative); Urine Ketones Negative (Negative); Urine Protein 30 (1+) mg/dL (Neg-Trace)
[2023-07-15 11:41] LABS: Bacteria Urine 4+ (None Seen); Hyaline Casts Urine 0-2 /LPF (0-2); RBC Urine 0-2 /HPF (0-2); Squamous Epithelial Cell Urine 0-2 /HPF (0-2); UACC Culture Trigger YES; WBC Urine >50 /HPF (0-5)
--- NOTE | 2023-07-15 11:44 | PC.NURSE ---
PT HAD A LARGE LOOSE BM, CLEANED AND REPOSITIONED.
[2023-07-15 11:50] VITALS: BP 132/64; PULSE 86; RESP 14; TEMP 36.3; O2SAT 98
[2023-07-15 12:48] LABS: Lactic Acid 2.2 mmol/L (0.5-2.0)
[2023-07-15] MEDS: cefTRIAXone sodium 1 GM in 0.9 % Sodium Chloride 50 ML IV (12:49)
[2023-07-15 14:17] LABS: Reflex Lactate? Lactic Acid Added
--- NOTE | 2023-07-15 14:25 | PC.NURSE ---
PT TO MRI VIA STRETCHER.
[2023-07-15 15:42] VITALS: BP 145/71; PULSE 81; RESP 14; TEMP 36.4; O2SAT 100
--- NOTE | 2023-07-15 16:23 | P.HPHOSP_ITS ---
History of Present Illness Date of Service: 07/15/23 Chief Complaint: Progressive weakness 88-year-old female recently came from [place] a month ago patient was at her usual health status until she sustained a mechanical fall month ago in [place], patient stated that she needed hospitalization for 3 days then was discharged ever since the fall patient been having generalized weakness, feels like needles and numbness in both arms and legs, patient is able to ambulate before the fall but now she is mostly bed ridden. ER Course Workup failed to demonstrate any acute fractures or abnormalities safe spinal stenosis. CTA of abdomen pelvis demonstrated moderate right-sided hydroureter nephrosis without calculus with bladder changes. Urine with active sediment. She was given a g of ceftriaxone and admission requested Review of Systems 2 Review of Systems: Via editing clerk: Denies chest pain Denies shortness of breath Denies nausea vomiting diarrhea Denies fever chills PMFSH Social History Smoked in Last 30 Days: No Use of substances other than those prescribed or required for medical reasons: No Advance Directives: No Advance Directives Information Provided: Yes Meds Allergies Allergy/AdvReac Type Severity Reaction Status Date / Time latex [LATEX] Allergy Unknown RASH Unverified 02/08/20 17:35 ELASTIC Allergy Unknown RASH Uncoded 02/08/20 17:35 Latex Gloves Allergy Unknown Uncoded 10/26/19 00:00 Active Medications: Current Medications Acetaminophen (Acetaminophen 325 Mg Tablet) 650 mg PO Q6H PRN PRN Reason: Pain, Mild (Pain Scale 1-3) Enoxaparin Sodium (Enoxaparin Sodium 30 Mg/0.3 Ml Syringe) 30 mg SUBCUT Q24H [facility] Ceftriaxone Sodium 1 gm/ (Sodium Chloride) 50 mls @ 100 mls/hr IV Q24H [facility] Ondansetron HCl (Ondansetron Hcl 4 Mg/2 Ml Vial) 4 mg IVPUSH Q8H PRN PRN Reason: Nausea and Vomiting Oxycodone HCl (Oxycodone Hcl Immed Release 5 Mg Tablet) 5 mg PO Q6H PRN PRN Reason: Pain, Severe (Pain Scale 7-10) Sodium Chloride (0.9 % Sodium Chloride Flush 3 Ml Syringe) 3 ml IVFLUSH QSHIFT [facility] Physical Exam 2 Vital Signs and Narrative: Vital Signs: Last Vital Signs Temp 97.6 F 07/15/23 15:42 Pulse 81 07/15/23 15:42 Resp 14 07/15/23 15:42 BP 145/71 H 07/15/23 15:42 Pulse Ox 100 07/15/23 15:42 O2 Del Method Room Air 07/15/23 15:42 BMI result Body Mass Index 31.9 Const: Other: Awake alert no acute distress Resp: Other: Clear to auscultation bilaterally no rales rhonchi wheezes Cardio: Other: No S4; positive S1-S2; no S3 murmurs rubs or gallops GI: Other: Soft nontender nondistended normoactive bowel sounds Extrem: Other: No edema bilaterally Results Labs 07/15/23 09:44 07/15/23 09:09 Labs: Laboratory Results - last 24 hr 07/15/23 07/15/23 07/15/23 09:09 09:44 11:23 MCV 101.0 H MCH 31.2 MCHC 30.9 L RDW 13.5 Plt Count 189 MPV 8.5 L Immature Gran % (Auto) 0.5 H Neut % (Auto) 68.4 Lymph % (Auto) 22.3 [place] % (Auto) 7.2 Eos % (Auto) 0.9 Baso % (Auto) 0.7 Lymph # (Auto) 1.3 [place] # (Auto) 0.4 Eos # (Auto) 0.1 Baso # (Auto) 0.0 Abs Immat Gran (auto) 0.03 Absolute Neuts (auto) 4.0 Absolute Nucleated RBC 0.000 Nucleated RBC % (auto) 0.0 Anion Gap 12 Estim Creat Clear Calc 51.2 Estimated GFR > 60 Random Glucose 98 Lactic Acid Lactic Acid F/U @ 2Hr Calcium 9.2 Total Bilirubin 0.5 Direct Bilirubin 0.2 AST 26 ALT 8 Alkaline Phosphatase 68 Total Creatine Kinase 14 L Troponin I High Sens 8.9 B-Natriuretic Peptide 66 Total Protein 6.9 Albumin 3.3 L Lipase 42 Urine Color Yellow Urine Appearance Cloudy Urine pH 7.0 Ur Specific [place] 1.015 Urine Protein 30 (1+) H Urine Glucose (UA) Negative Urine Ketones Negative Urine Blood Trace H Urine Nitrite Positive H Ur Leukocyte Esterase Large (3+) H Urine RBC 0-2 Urine WBC >50 H Ur Squamous Epith Cells 0-2 Urine Bacteria 4+ Hyaline Casts 0-2 Influenza Type A (PCR) NEGATIVE Influenza Type B (PCR) NEGATIVE RSV RNA Qual (PCR) NEGATIVE SARS-CoV-2 RNA (RT-PCR) NEGATIVE 07/15/23 07/15/23 12:08 15:33 MCV MCH MCHC RDW Plt Count MPV Immature Gran % (Auto) Neut % (Auto) Lymph % (Auto) [place] % (Auto) Eos % (Auto) Baso % (Auto) Lymph # (Auto) [place] # (Auto) Eos # (Auto) Baso # (Auto) Abs Immat Gran (auto) Absolute Neuts (auto) Absolute Nucleated RBC Nucleated RBC % (auto) Anion Gap Estim Creat Clear Calc Estimated GFR Random Glucose Lactic Acid 2.2 H* Lactic Acid F/U @ 2Hr 1.0 Calcium Total Bilirubin Direct Bilirubin AST ALT Alkaline Phosphatase Total Creatine Kinase Troponin I High Sens B-Natriuretic Peptide Total Protein Albumin Lipase Urine Color Urine Appearance Urine pH Ur Specific [place] Urine Protein Urine Glucose (UA) Urine Ketones Urine Blood Urine Nitrite Ur Leukocyte Esterase Urine RBC Urine WBC Ur Squamous Epith Cells Urine Bacteria Hyaline Casts Influenza Type A (PCR) Influenza Type B (PCR) RSV RNA Qual (PCR) SARS-CoV-2 RNA (RT-PCR) Imaging Radiologist's Impressions: Impressions Chest X-Ray 07/15/23 08:57 IMPRESSION: No acute pulmonary pathology. Cervical Spine CT 07/15/23 09:20 IMPRESSION: 1. No acute intracranial hemorrhage or territorial infarction. Htya-yv-uhccwrnr chronic white matter microangiopathy. 2. No evidence of acute cervical spine traumatic injury. Significant disc-osteophyte complexes at the C3-C4 and C4-C5 levels with foraminal encroachment. 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 If the patient has any underlying myelopathic symptoms or suspicion for cord injury, a follow-up MRI of the cervical spine would be recommended. Imaging findings reported to Dr. Barrett at 10:50 AM on 07/15/2023. Head CT 07/15/23 09:20 IMPRESSION: 1. No acute intracranial hemorrhage or territorial infarction. Fxbh-kw-kuflgeng chronic white matter microangiopathy. 2. No evidence of acute cervical spine traumatic injury. Significant disc-osteophyte complexes at the C3-C4 and C4-C5 levels with foraminal encroachment. 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 If the patient has any underlying myelopathic symptoms or suspicion for cord injury, a follow-up MRI of the cervical spine would be recommended. Imaging findings reported to Dr. Barrett at 10:50 AM on 07/15/2023. Lumbar Spine CT 07/15/23 09:22 IMPRESSION: THORACIC SPINE: 1. No acute fracture. Bulky anterolateral endplate osteophytic spurring. No significant central canal stenosis or foraminal narrowing. 2. Small gastric hiatal hernia. LUMBAR SPINE: 1. Multilevel lumbar spondylosis with severe central canal stenosis at the L3-L4 and L4-L5 levels. Moderate central canal stenosis at the L2-L3 level. 2. Mild anterolisthesis as well at the L4-L5 level with advanced facet arthropathy and a diffuse disc bulge. Severe foraminal narrowing. 3. Extensive left-sided colonic diverticulosis. 4. Mild right-sided hydroureteronephrosis without an obstructing calculus within the imaged portions of the ureter. Scattered, small nonobstructing right renal calculi. The distal ureters near the bladder are not included in the ozeag-pm-tywu of imaging. Currently correlate. Imaging findings reported to Dr. Barrett at 10:15 AM on 07/15/2023. Thoracic Spine CT 07/15/23 09:23 IMPRESSION: THORACIC SPINE: 1. No acute fracture. Bulky anterolateral endplate osteophytic spurring. No significant central canal stenosis or foraminal narrowing. 2. Small gastric hiatal hernia. LUMBAR SPINE: 1. Multilevel lumbar spondylosis with severe central canal stenosis at the L3-L4 and L4-L5 levels. Moderate central canal stenosis at the L2-L3 level. 2. Mild anterolisthesis as well at the L4-L5 level with advanced facet arthropathy and a diffuse disc bulge. Severe foraminal narrowing. 3. Extensive left-sided colonic diverticulosis. 4. Mild right-sided hydroureteronephrosis without an obstructing calculus within the imaged portions of the ureter. Scattered, small nonobstructing right renal calculi. The distal ureters near the bladder are not included in the edxql-mo-anhb of imaging. Currently correlate. Imaging findings reported to Dr. Barrett at 10:15 AM on 07/15/2023. Abdomen/Pelvis CT 07/15/23 11:08 IMPRESSION: 1. Moderate right-sided hydroureteronephrosis. No obstructing calculus is identified. 2. Abnormal appearance of the bladder with somewhat localized bladder wall thickening along the right mid lateral wall in the region of ureteral insertion. This is a nonspecific finding but may be the cause of hydronephrosis. Direct inspection may be warranted. Neoplasm not excluded. 3. Bilateral nonobstructing renal calculi noted. 4. Colonic diverticulosis. 5. Diffusely decreased liver attenuation suggesting hepatic steatosis. Correlation with liver enzymes recommended. Fleischner guidelines were followed. Cervical Spine MRI 07/15/23 14:43 IMPRESSION: Limited exam. The patient was only able to tolerate limited sagittal imaging. Moderate to advanced multilevel degenerative spinal arthropathy of the cervical spine. There appears to be severe spinal canal stenosis at C3-C4 with cord compression and myelomalacia. There also appear to be at least moderate spinal canal stenoses at C2-C3, C4-C5, C5-C6, and C6-C7. Assessment and Plan (1) Hydroureteronephrosis: Status: Acute (2) Cervical spinal stenosis: Status: Acute Plan 88-year-old female with what appears to be no significant past medical history presents from son's house secondary to increasing weakness. States she fell in [place] approximately a month ago and required 3 days in the hospital and was discharged. Ever since her weakness has been worsening. ER evaluation significant for hydro ureter/nephrosis and bladder abnormalities. 1.Hydroureteronephrosis with active urinary sediment -cover with ceftriaxone (1) -urology consult in a.m. -await formal cultures 2. Cervical spinal stenosis -oxycodone for pain -physical therapy consult in a.m. DNR DNI Ajit Requires at least 2 midnights going forward of inpatient hospitalization to empirically cover with IV antibiotics for hydro ureteral nephrosis. She will also need specialty consultation for direct visualization of her bladder. This can not be achieved a lesser acute setting Quality Stroke Does the patient have a stroke diagnosis?: No VTE Prior VTE?: No VTE Risk Level:: Medical - moderate - high VTE Device Contraindication: Treatment Not Indicated VTE Drug Contraindication: N/A - Med Ordered
[2023-07-15] MEDS: Enoxaparin Sodium 40 MG/0.4 ML SYRINGE SUBCUT (16:56)
[2023-07-15 17:47] VITALS: BP 139/68; PULSE 85; RESP 14; TEMP 36.2; O2SAT 98
--- NOTE | 2023-07-15 18:12 | PHA.MEDREC ---
Pharmacy Consult ? Medication Reconciliation Pharmacy has completed the medication reconciliation. Patient and family confirm medications. Patient reported no cholesterol medications however family member report patient takes simvastatin. Carly Perez, PharmD
[2023-07-15 20:11] VITALS: BP 115/67; PULSE 95; RESP 17; TEMP 36.8; O2SAT 97
--- NOTE | 2023-07-15 20:11 | PC.NURSE ---
this rn assumed care of pt. pt resting in stretcher comfortably, eyes shut, no acute distress noted.
--- NOTE | 2023-07-15 21:32 | PC.NURSE ---
bilingual interpreter at beside. pt assisted with bed mobility, pt denies pain at this time but reports she is unable to walk. pt reports using walker at home.
[2023-07-16] MEDS: 0.9 % Sodium Chloride Flush 3 ML SYRINGE IVFLUSH ×5 (01:32→23:33)
[2023-07-16] MEDS: oxyCODONE HCl Immed Release 5 MG TABLET PO ×2 (01:32→22:21)
[2023-07-16 05:37] LABS: Hematocrit 28.1 % (37.0-47.0); Hemoglobin 8.8 g/dl (12.0-16.0); Mean Corpuscular HGB Conc 31.3 g/dl (31.0-35.0); Mean Corpuscular Hemoglobin 31.7 pg (27.0-33.0); Mean Corpuscular Volume 101.1 fL (80.0-98.0); Mean Platelet Volume 8.7 fL (9.4-12.3); Platelet Count 184 X10*3/uL (160-400); Red Blood Count 2.78 X10*6/uL (4.20-5.50); Red Cell Distribution Width 13.6 % (11.0-16.0); White Blood Count 4.3 X10*3/uL (4.8-10.8)
[2023-07-16 06:02] LABS: Alanine Aminotransferase 7 U/L (0-31); Albumin Level 3.1 g/dL (3.5-5.0); Alkaline Phosphatase 72 U/L (39-117); Anion Gap 10 (12-20); Aspartate Amino Transferase 14 U/L (5-31); Bilirubin Total 0.4 mg/dL (0.0-1.0); Blood Urea Nitrogen 17 mg/dL (9-16); Calcium 8.8 mg/dL (8.4-10.2); Carbon Dioxide 24 mmol/L (22-29); Chloride 112 mmol/L (96-108); Creatinine Clr Calc Pharmacy 48.3; Estimated Glomerular Filt Rate 59; Glucose Random 108 mg/dL (60-115); Potassium 4.2 mmol/L (3.3-5.1); Sodium 142 mmol/L (135-145); Total Protein 6.2 g/dL (6.5-8.0)
[2023-07-16 06:10] VITALS: BP 115/60; PULSE 88; RESP 20; TEMP 36.8; O2SAT 100
[2023-07-16 08:00] VITALS: BP 141/64; PULSE 84; RESP 18; TEMP 37; O2SAT 97
[2023-07-16] MEDS: Acetaminophen 325 MG TABLET 650 MG PO ×2 (09:10→18:27)
--- NOTE | 2023-07-16 11:20 | MHC.CM.PN ---
pt came from [place] 2 weeks ago family are working on an aprtment for pt and servies pt is staying with son at this time has own ride
[2023-07-16] MEDS: cefTRIAXone sodium 1 GM in 0.9 % Sodium Chloride 50 ML IV (12:10)
--- NOTE | 2023-07-16 12:21 | P.CNUR_ITS ---
History of Present Illness Consult details Consult date: 07/15/23 Narrative: Consulting complaint : Right hydronephrosis 88-year-old female Right hydronephrosis seen on imaging Prior right renal stones Prior ultrasound 2020 no evidence of hydronephrosis Had been followed for stones for a number of years Creatinine 0.9 Recommend Lasix renogram to see if clinical obstruction of flow Review of Systems 2 Constitutional: Constitutional: Reports as per HPI and Reports no additional constitutional complaints Cardiovascular: Cardiovascular: Reports as per HPI and Reports no additional cardiovascular complaints Respiratory: Respiratory: Reports as per HPI and Reports no additional respiratory complaints Gastrointestinal: Gastrointestinal: Reports as per HPI and Reports no additional gastrointestinal complaints Genitourinary: Genitourinary: Reports as per HPI Musculoskeletal: Musculoskeletal: Reports no additional musculoskeletal complaints and Reports as per HPI Neurologic: Reports system reviewed and no additional complaints, except as documented and Reports as per HPI [facility] Social History Social History Household Members: Children Housing: House Do you presently have visiting nurse or other home services: Yes (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 If so, by whom?: No Do you feel safe in your current relationship?: No Current Relationship Is there a partner from a previous relationship who is making you feel unsafe now?: No Are you made to feel afraid or neglected: No Advance Directives: No Advance Directives Information Provided: Yes Do you have thoughts of harming others: None Do you have a plan to hurt others: No Plan Recently lost weight without trying: No Eating poorly because of decreased appetite: No Nutrition Risks: No Nutritional Risk Patient : No : No Poor oral hygiene: No service: No Meds Allergies Allergy/AdvReac Type Severity Reaction Status Date / Time latex [LATEX] Allergy Unknown RASH Verified 07/16/23 02:22 ELASTIC Allergy Unknown RASH Uncoded 07/16/23 02:22 Active Medications: Current Medications Acetaminophen (Acetaminophen 325 Mg Tablet) 650 mg PO Q6H PRN PRN Reason: Pain, Mild (Pain Scale 1-3) Last Admin: 07/16/23 09:10 Dose: 650 mg Enoxaparin Sodium (Enoxaparin Sodium 40 Mg/0.4 Ml Syringe) 40 mg SUBCUT Q24H [facility] Last Admin: 07/15/23 16:56 Dose: 40 mg Ceftriaxone Sodium 1 gm/ (Sodium Chloride) 50 mls @ 100 mls/hr IV Q24H [facility] Last Admin: 07/16/23 12:10 Dose: 100 mls/hr Ondansetron HCl (Ondansetron Hcl 4 Mg/2 Ml Vial) 4 mg IVPUSH Q8H PRN PRN Reason: Nausea and Vomiting Oxycodone HCl (Oxycodone Hcl Immed Release 5 Mg Tablet) 5 mg PO Q6H PRN PRN Reason: Pain, Severe (Pain Scale 7-10) Last Admin: 07/16/23 01:32 Dose: 5 mg Sodium Chloride (0.9 % Sodium Chloride Flush 3 Ml Syringe) 3 ml IVFLUSH QSHIFT [facility] Last Admin: 07/16/23 09:13 Dose: 3 ml Home Medications Medication Instructions Recorded Confirmed Last Taken Type acetaminophen 325 mg tablet 650 mg PO Q6H PRN Pain (Scale 07/15/23 07/15/23 Unknown History Score 1-3) levothyroxine 75 mcg tablet 75 mcg PO DAILY 07/15/23 07/15/23 Unknown History (Synthroid) metformin 500 mg tablet 500 mg PO DAILY 07/15/23 07/15/23 Unknown History simvastatin 40 mg tablet 40 mg PO BEDTIME 07/15/23 07/15/23 Unknown History Physical Exam 2 Vital Signs: Vital Signs: Last Vital Signs Temp 98.6 F 07/16/23 08:00 Pulse 84 07/16/23 08:00 Resp 18 07/16/23 08:00 BP 141/64 H 07/16/23 08:00 Pulse Ox 97 07/16/23 08:00 O2 Del Method Room Air 07/16/23 08:00 BMI result Body Mass Index 31.9 Const: General: cooperative, healthy appearing, comfortable and no acute distress Orientation/consciousness: patient oriented x3 HEENT: Face and sinus: Yes normal facial exam Mouth: moist mucous membranes Neck: Neck: Yes normal visual inspection, Yes full ROM and Yes trachea midline Chest: Chest palpation & inspection: normal inspection of the chest Resp: Effort & Inspection: normal respiratory effort, able to speak in complete sentences and no respiratory distress GI: Inspection: Yes normal to inspection Back/Spine/Pelvis: Cervical Spine: normal cervical lordosis Thoracic/Lumbar Spine: thoracic and lumbar spine normal to inspection Skin: General skin exam: no rashes or lesions noted Neuro: General: patient oriented x3, tone normal and moves all extremities Extrem: General: Yes normal to inspection and Yes capillary refill normal Results Labs 07/16/23 04:59 07/16/23 04:59 Labs: Abnormal lab results 07/15/23 07/16/23 Range/Units 12:08 04:59 WBC 4.3 L (4.8-10.8) X10*3/uL RBC 2.78 L (4.20-5.50) X10*6/uL Hgb 8.8 L (12.0-16.0) g/dl Hct 28.1 L (37.0-47.0) % MCV 101.1 H (80.0-98.0) fL MPV 8.7 L (9.4-12.3) fL Chloride 112 H (96-108) mmol/L Anion Gap 10 L (12-20) BUN 17 H (9-16) mg/dL Lactic Acid 2.2 H* (0.5-2.0) mmol/L Total Protein 6.2 L (6.5-8.0) g/dL Albumin 3.1 L (3.5-5.0) g/dL Short CBC 07/16/23 Range/Units 04:59 WBC 4.3 L (4.8-10.8) X10*3/uL Hgb 8.8 L (12.0-16.0) g/dl Hct 28.1 L (37.0-47.0) % Plt Count 184 (160-400) X10*3/uL BMP 07/16/23 04:59 Sodium 142 Potassium 4.2 Chloride 112 H Carbon Dioxide 24 BUN 17 H Creatinine 0.91 Calcium 8.8 Liver Function 07/16/23 Range/Units 04:59 Total Bilirubin 0.4 (0.0-1.0) mg/dL AST 14 (5-31) U/L ALT 7 (0-31) U/L Alkaline Phosphatase 72 (39-117) U/L Albumin 3.1 L (3.5-5.0) g/dL Urine 07/15/23 Range/Units 11:23 Urine Color Yellow Urine Appearance Cloudy Urine pH 7.0 (5.0-9.0) Ur Specific [place] 1.015 (1.005-1.025) Urine Protein 30 (1+) H (Neg-Trace) mg/dL Urine Glucose (UA) Negative (Negative) mg/dL All other labs normal. Assessment and Plan (1) Hydroureteronephrosis: Status: Acute Plan Lasix renogram Procedures Date of Service Date of Service: 07/16/23
--- NOTE | 2023-07-16 12:36 | P.PNIM_ITS ---
Subjective Subjective Date of Service: 07/16/23 Interval History: Essentially no change overnight. Pain control with Tylenol Review of Systems Via staff interpreter: Denies chest pain Denies shortness of breath Denies nausea vomiting diarrhea Denies fever chills Physical Exam 2 Vital Signs: Vital Signs: Last Vital Signs Temp 98.6 F 07/16/23 08:00 Pulse 84 07/16/23 08:00 Resp 18 07/16/23 08:00 BP 141/64 H 07/16/23 08:00 Pulse Ox 97 07/16/23 08:00 O2 Del Method Room Air 07/16/23 08:00 BMI result Body Mass Index 31.9 Const: Other: Awake alert no acute distress Resp: Other: Clear to auscultation bilaterally no rales rhonchi wheezes Cardio: Other: No S4; positive S1-S2; no S3 murmurs rubs or gallops GI: Other: Soft nontender nondistended normoactive bowel sounds Extrem: Other: No edema bilaterally Objective Data Active Medications Acetaminophen (Acetaminophen 325 Mg Tablet) 650 mg PO Q6H PRN PRN Reason: Pain, Mild (Pain Scale 1-3) Last Admin: 07/16/23 09:10 Dose: 650 mg Documented By: DELFINA Enoxaparin Sodium (Enoxaparin Sodium 40 Mg/0.4 Ml Syringe) 40 mg SUBCUT Q24H [facility] Last Admin: 07/15/23 16:56 Dose: 40 mg Documented By: SHANEL Ceftriaxone Sodium 1 gm/ (Sodium Chloride) 50 mls @ 100 mls/hr IV Q24H [facility] Last Admin: 07/16/23 12:10 Dose: 100 mls/hr Documented By: DELFINA Ondansetron HCl (Ondansetron Hcl 4 Mg/2 Ml Vial) 4 mg IVPUSH Q8H PRN PRN Reason: Nausea and Vomiting Oxycodone HCl (Oxycodone Hcl Immed Release 5 Mg Tablet) 5 mg PO Q6H PRN PRN Reason: Pain, Severe (Pain Scale 7-10) Last Admin: 07/16/23 01:32 Dose: 5 mg Documented By: LEANDRA Sodium Chloride (0.9 % Sodium Chloride Flush 3 Ml Syringe) 3 ml IVFLUSH QSHIFT [facility] Last Admin: 07/16/23 09:13 Dose: 3 ml Documented By: DELFINA Labs 07/16/23 04:59 07/16/23 04:59 Labs: Laboratory Results - last 24 hr 07/15/23 07/15/23 07/16/23 12:08 15:33 04:59 MCV 101.1 H MCH 31.7 MCHC 31.3 RDW 13.6 Plt Count 184 MPV 8.7 L Absolute Nucleated RBC 0.000 Nucleated RBC % (auto) 0.0 Anion Gap 10 L Estim Creat Clear Calc 48.3 Estimated GFR 59 Random Glucose 108 Lactic Acid 2.2 H* Lactic Acid F/U @ 2Hr 1.0 Calcium 8.8 Total Bilirubin 0.4 AST 14 ALT 7 Alkaline Phosphatase 72 Total Protein 6.2 L Albumin 3.1 L Assessment and Plan (1) Hydroureteronephrosis: Status: Acute Plan 88-year-old female with what appears to be no significant past medical history presents from son's house secondary to increasing weakness. States she fell in [place] approximately a month ago and required 3 days in the hospital and was discharged. Ever since her weakness has been worsening. ER evaluation significant for hydro ureter/nephrosis and bladder abnormalities. 1.Hydroureteronephrosis with active urinary sediment -cover with ceftriaxone (2) -urology consult appreciated... Plan as per Urology -await formal cultures 2. Cervical spinal stenosis -oxycodone for pain -physical therapy consult in a.m. DNR DNI Magnoliax Requires ongoing hospitalization for IV ceftriaxone to treat UTI pending cultures and Quality Stroke Does the patient have a stroke diagnosis?: No VTE Prior VTE?: No VTE Risk Level:: Medical - moderate - high VTE Device Contraindication: Treatment Not Indicated VTE Drug Contraindication: N/A - Med Ordered
[2023-07-16 14:57] VITALS: BP 141/62; PULSE 90; RESP 18; TEMP 36.4; O2SAT 99
[2023-07-16] MEDS: Enoxaparin Sodium 40 MG/0.4 ML SYRINGE SUBCUT (17:23)
[2023-07-16] MEDS: Hydrocortisone 2.5 % Rectal Cr 30 GM TUBE 1 APPL PR (17:27)
--- NOTE | 2023-07-16 18:17 | PC.NURSE ---
Notified MD Nielson that Pt states she believes she broke her wrists as well when she fell 4 mnths ago. She cant fully bend them and has very weak grasps. never got xrays in CT. Pt received multiple spinal imaging but nothing regarding her wrists.
[2023-07-16 19:14] VITALS: BP 139/77; PULSE 95; RESP 20; TEMP 36.3; O2SAT 97
[2023-07-17 04:00] VITALS: BP 125/57; PULSE 87; RESP 16; TEMP 36.8; O2SAT 96
[2023-07-17 06:27] LABS: Hematocrit 28.1 % (37.0-47.0); Hemoglobin 9.1 g/dl (12.0-16.0); Mean Corpuscular HGB Conc 32.4 g/dl (31.0-35.0); Mean Corpuscular Hemoglobin 32.2 pg (27.0-33.0); Mean Corpuscular Volume 99.3 fL (80.0-98.0); Mean Platelet Volume 8.7 fL (9.4-12.3); Platelet Count 194 X10*3/uL (160-400); Red Blood Count 2.83 X10*6/uL (4.20-5.50); Red Cell Distribution Width 13.6 % (11.0-16.0); White Blood Count 4.1 X10*3/uL (4.8-10.8)
[2023-07-17 06:45] LABS: Alanine Aminotransferase 6 U/L (0-31); Albumin Level 3.3 g/dL (3.5-5.0); Alkaline Phosphatase 74 U/L (39-117); Anion Gap 13 (12-20); Aspartate Amino Transferase 14 U/L (5-31); Bilirubin Total 0.4 mg/dL (0.0-1.0); Blood Urea Nitrogen 24 mg/dL (9-16); Calcium 8.8 mg/dL (8.4-10.2); Carbon Dioxide 24 mmol/L (22-29); Chloride 108 mmol/L (96-108); Creatinine Clr Calc Pharmacy 43.5; Estimated Glomerular Filt Rate 52; Glucose Random 112 mg/dL (60-115); Potassium 4.1 mmol/L (3.3-5.1); Sodium 141 mmol/L (135-145); Total Protein 6.4 g/dL (6.5-8.0)
[2023-07-17 07:19] VITALS: BP 109/59; PULSE 83; RESP 16; TEMP 36; O2SAT 97
[2023-07-17] MEDS: 0.9 % Sodium Chloride Flush 3 ML SYRINGE IVFLUSH ×3 (07:26→21:11)
[2023-07-17] MEDS: cefTRIAXone sodium 1 GM in 0.9 % Sodium Chloride 50 ML IV (11:27)
--- NOTE | 2023-07-17 13:31 | HO.PM.IMPN ---
Subjective Subjective Date of Service: 07/17/23 Interval History: Some improvement overnight. Renal scan results pending Review of Systems Via press helper: Denies chest pain Denies shortness of breath Denies nausea vomiting diarrhea Denies fever chills Physical Exam Vital Signs: Vital Signs: Last Vital Signs Temp 96.8 F 07/17/23 07:19 Pulse 83 07/17/23 07:19 Resp 16 07/17/23 07:19 BP 109/59 L 07/17/23 07:19 Pulse Ox 97 07/17/23 07:19 O2 Del Method Room Air 07/17/23 07:19 BMI result Body Mass Index 31.9 Const: Other: Awake alert no acute distress Resp: Other: Clear to auscultation bilaterally no rales rhonchi wheezes Cardio: Other: No S4; positive S1-S2; no S3 murmurs rubs or gallops GI: Other: Soft nontender nondistended normoactive bowel sounds Extrem: Other: No edema bilaterally Objective Data Active Medications Acetaminophen (Acetaminophen 325 Mg Tablet) 650 mg PO Q6H PRN PRN Reason: Pain, Mild (Pain Scale 1-3) Last Admin: 07/16/23 18:27 Dose: 650 mg Documented By: DELFINA Enoxaparin Sodium (Enoxaparin Sodium 40 Mg/0.4 Ml Syringe) 40 mg SUBCUT Q24H [facility] Last Admin: 07/16/23 17:23 Dose: 40 mg Documented By: DELFINA Ceftriaxone Sodium 1 gm/ (Sodium Chloride) 50 mls @ 100 mls/hr IV Q24H [facility] Last Infusion: 07/17/23 12:03 Dose: Infused Documented By: MARYANN Ondansetron HCl (Ondansetron Hcl 4 Mg/2 Ml Vial) 4 mg IVPUSH Q8H PRN PRN Reason: Nausea and Vomiting Oxycodone HCl (Oxycodone Hcl Immed Release 5 Mg Tablet) 5 mg PO Q6H PRN PRN Reason: Pain, Severe (Pain Scale 7-10) Last Admin: 07/16/23 22:21 Dose: 5 mg Documented By: LUIS Sodium Chloride (0.9 % Sodium Chloride Flush 3 Ml Syringe) 3 ml IVFLUSH QSHIFT [facility] Last Admin: 07/17/23 07:26 Dose: 3 ml Documented By: MARYANN Labs 07/17/23 05:54 07/17/23 05:54 Labs: Laboratory Results - last 24 hr 07/17/23 05:54 MCV 99.3 H MCH 32.2 MCHC 32.4 RDW 13.6 Plt Count 194 MPV 8.7 L Absolute Nucleated RBC 0.000 Nucleated RBC % (auto) 0.0 Anion Gap 13 Estim Creat Clear Calc 43.5 Estimated GFR 52 Random Glucose 112 Calcium 8.8 Total Bilirubin 0.4 AST 14 ALT 6 Alkaline Phosphatase 74 Total Protein 6.4 L Albumin 3.3 L Microbiology Microbiology Results: Microbiology 07/15/23 12:09 Urine Culture - Preliminary Urine clean catch - Urine rodríguez top Gram negative steff 07/15/23 12:08 Blood Culture - Preliminary Blood - Venous No growth after 24 hours. 07/15/23 12:08 Blood Culture - Preliminary Blood - Venous No growth after 24 hours. Assessment and Plan (1) Hydroureteronephrosis: Status: Acute (2) Urinary tract infection: Status: Acute Plan 88-year-old female with what appears to be no significant past medical history presents from son's house secondary to increasing weakness. States she fell in [place] approximately a month ago and required 3 days in the hospital and was discharged. Ever since her weakness has been worsening. ER evaluation significant for hydro ureter/nephrosis and bladder abnormalities. 1.Hydroureteronephrosis -urology consult appreciated... Plan as per Urology -renal scan pending 2. UTI -preliminary culture GNR -continue ceftriaxone (2) -adjust based on forthcoming culture 2. Cervical spinal stenosis -oxycodone for pain -physical therapy consult in a.m. DNR DNI Kaylynnkenya Requires ongoing hospitalization for IV ceftriaxone to treat UTI pending cultures and Quality Stroke Does the patient have a stroke diagnosis?: No VTE Prior VTE?: No VTE Risk Level:: Medical - moderate - high VTE Device Contraindication: Treatment Not Indicated VTE Drug Contraindication: N/A - Med Ordered
[2023-07-17 15:20] VITALS: BP 134/67; PULSE 94; RESP 16; TEMP 36.8; O2SAT 96
[2023-07-17] MEDS: Enoxaparin Sodium 40 MG/0.4 ML SYRINGE SUBCUT (16:34)
[2023-07-17 19:37] VITALS: BP 121/66; PULSE 89; RESP 16; TEMP 37.4; O2SAT 96
[2023-07-17] MEDS: Acetaminophen 325 MG TABLET 650 MG PO (21:10)
[2023-07-18 03:18] VITALS: BP 111/59; PULSE 89; RESP 16; TEMP 36.8; O2SAT 99
[2023-07-18 07:22] VITALS: BP 128/64; PULSE 81; RESP 16; TEMP 36.3; O2SAT 96
[2023-07-18] MEDS: 0.9 % Sodium Chloride Flush 3 ML SYRINGE IVFLUSH ×3 (08:29→20:34)
[2023-07-18] MEDS: cefTRIAXone sodium 1 GM in 0.9 % Sodium Chloride 50 ML IV (11:06)
--- NOTE | 2023-07-18 12:49 | HO.PM.IMPN ---
Subjective Subjective Date of Service: 07/18/23 Interval History: No acute issues overnight. Awaiting renal scan read Review of Systems Via translator and interpreter: Denies chest pain Denies shortness of breath Denies nausea vomiting diarrhea Denies fever chills Physical Exam Vital Signs: Vital Signs: Last Vital Signs Temp 97.3 F 07/18/23 07:22 Pulse 81 07/18/23 07:22 Resp 16 07/18/23 07:22 BP 128/64 07/18/23 07:22 Pulse Ox 96 07/18/23 07:22 O2 Del Method Room Air 07/18/23 07:22 BMI result Body Mass Index 31.9 Const: Other: Awake alert no acute distress Resp: Other: Clear to auscultation bilaterally no rales rhonchi wheezes Cardio: Other: No S4; positive S1-S2; no S3 murmurs rubs or gallops GI: Other: Soft nontender nondistended normoactive bowel sounds Extrem: Other: No edema bilaterally Objective Data Active Medications Acetaminophen (Acetaminophen 325 Mg Tablet) 650 mg PO Q6H PRN PRN Reason: Pain, Mild (Pain Scale 1-3) Last Admin: 07/17/23 21:10 Dose: 650 mg Documented By: ROBER Enoxaparin Sodium (Enoxaparin Sodium 40 Mg/0.4 Ml Syringe) 40 mg SUBCUT Q24H [facility] Last Admin: 07/17/23 16:34 Dose: 40 mg Documented By: MARYANN Ceftriaxone Sodium 1 gm/ (Sodium Chloride) 50 mls @ 100 mls/hr IV Q24H [facility] Last Admin: 07/18/23 11:06 Dose: 100 mls/hr Documented By: MARYANN Ondansetron HCl (Ondansetron Hcl 4 Mg/2 Ml Vial) 4 mg IVPUSH Q8H PRN PRN Reason: Nausea and Vomiting Oxycodone HCl (Oxycodone Hcl Immed Release 5 Mg Tablet) 5 mg PO Q6H PRN PRN Reason: Pain, Severe (Pain Scale 7-10) Last Admin: 07/16/23 22:21 Dose: 5 mg Documented By: LUIS Sodium Chloride (0.9 % Sodium Chloride Flush 3 Ml Syringe) 3 ml IVFLUSH QSHIFT [facility] Last Admin: 07/18/23 08:29 Dose: 3 ml Documented By: MARYANN Labs 07/17/23 05:54 07/17/23 05:54 Microbiology Microbiology Results: Microbiology 07/15/23 12:09 Urine Culture - Final Urine clean catch - Urine rodríguez top Raoultella planticola 07/15/23 12:08 Blood Culture - Preliminary Blood - Venous No growth after 48 hours. 07/15/23 12:08 Blood Culture - Preliminary Blood - Venous No growth after 48 hours. Assessment and Plan (1) Hydroureteronephrosis: Status: Acute (2) Urinary tract infection: Status: Acute Plan 88-year-old female with what appears to be no significant past medical history presents from son's house secondary to increasing weakness. States she fell in [place] approximately a month ago and required 3 days in the hospital and was discharged. Ever since her weakness has been worsening. ER evaluation significant for hydro ureter/nephrosis and bladder abnormalities. 1.Hydroureteronephrosis -urology consult appreciated... Plan as per Urology -renal scan done... Reading pending -ask Urology to re-evaluate in a.m. 2. UTI -preliminary culture Raoultella planticola SS CTX -continue ceftriaxone (2) -adjust based on forthcoming culture 2. Cervical spinal stenosis -oxycodone for pain -physical therapy consult in a.m. DNR DNI Ajit Requires ongoing hospitalization for IV ceftriaxone to treat UTI pending cultures and Quality Stroke Does the patient have a stroke diagnosis?: No VTE Prior VTE?: No VTE Risk Level:: Medical - moderate - high VTE Device Contraindication: Treatment Not Indicated VTE Drug Contraindication: N/A - Med Ordered
[2023-07-18 15:13] VITALS: BP 119/58; PULSE 85; RESP 14; TEMP 36.3; O2SAT 97
[2023-07-18] MEDS: Enoxaparin Sodium 40 MG/0.4 ML SYRINGE SUBCUT (16:38)
[2023-07-18] MEDS: Acetaminophen 325 MG TABLET 650 MG PO (18:49)
[2023-07-18 19:25] VITALS: BP 151/74; PULSE 93; RESP 16; TEMP 36.7; O2SAT 97
[2023-07-19 03:51] VITALS: BP 135/85; PULSE 86; RESP 18; TEMP 36.1; O2SAT 98
[2023-07-19 06:08] LABS: MANUAL DIFF FLAG NO
[2023-07-19 06:16] LABS: Basophils Percent Auto 0.7 % (0-2); Eosinophils Absolute Auto 0.1 X10*3/uL (0.0-0.4); Eosinophils Percent Auto 2.5 % (0-4); Hematocrit 27.9 % (37.0-47.0); Hemoglobin 9.6 g/dl (12.0-16.0); Imm Gran Abs Auto 0.02 X10*3/uL (0.00-0.03); Imm Gran Pct Auto 0.5 % (0.0-0.4); Lymphocytes Absolute Auto 1.5 X10*3/uL (1.2-4.9); Lymphocytes Percent Auto 37.2 % (20-40); Mean Corpuscular HGB Conc 34.4 g/dl (31.0-35.0); Mean Corpuscular Hemoglobin 33.7 pg (27.0-33.0); Mean Corpuscular Volume 97.9 fL (80.0-98.0); Mean Platelet Volume 8.7 fL (9.4-12.3); Monocytes Absolute Auto 0.3 X10*3/uL (0.1-1.2); Monocytes Percent Auto 8.4 % (2-11); Neutrophils Absolute Auto 2.1 x10*3/uL (2.0-8.3); Neutrophils Percent Auto 50.7 % (45-73); Platelet Count 221 X10*3/uL (160-400); Red Blood Count 2.85 X10*6/uL (4.20-5.50); Red Cell Distribution Width 13.3 % (11.0-16.0); White Blood Count 4.1 X10*3/uL (4.8-10.8)
[2023-07-19 06:29] LABS: Alanine Aminotransferase 11 U/L (0-31); Albumin Level 3.3 g/dL (3.5-5.0); Alkaline Phosphatase 78 U/L (39-117); Anion Gap 13 (12-20); Aspartate Amino Transferase 20 U/L (5-31); Bilirubin Total 0.4 mg/dL (0.0-1.0); Blood Urea Nitrogen 21 mg/dL (9-16); Calcium 9.2 mg/dL (8.4-10.2); Carbon Dioxide 25 mmol/L (22-29); Chloride 107 mmol/L (96-108); Creatinine Clr Calc Pharmacy 51.8; Estimated Glomerular Filt Rate > 60; Glucose Fasting 100 mg/dL (60-99); Potassium 4.3 mmol/L (3.3-5.1); Sodium 141 mmol/L (135-145); Total Protein 6.7 g/dL (6.5-8.0)
[2023-07-19 07:40] VITALS: BP 134/72; PULSE 85; RESP 16; TEMP 37; O2SAT 97
[2023-07-19] MEDS: Acetaminophen 325 MG TABLET 650 MG PO (09:04)
[2023-07-19] MEDS: 0.9 % Sodium Chloride Flush 3 ML SYRINGE IVFLUSH ×2 (09:05→14:47)
--- NOTE | 2023-07-19 09:29 | P.PNIM_ITS ---
Subjective Subjective Date of Service: 07/19/23 Interval History: Follow up UTI, hydronephrosis no pain to back Review of Systems Via control clerk head: Denies chest pain Denies shortness of breath Denies nausea vomiting diarrhea Denies fever chills Physical Exam 2 Vital Signs: Vital Signs: Last Vital Signs Temp 98.6 F 07/19/23 07:40 Pulse 85 07/19/23 07:40 Resp 16 07/19/23 07:40 BP 134/72 07/19/23 07:40 Pulse Ox 97 07/19/23 07:40 O2 Del Method Room Air 07/19/23 07:40 BMI result Body Mass Index 31.9 Appearing in no acute distress lung sounds are clear to auscultation heart regular rate rhythm, clear S1, S2 positive bowel sounds, abdomen is soft, nontender neuro patient is alert x3, no focal deficits Objective Data Active Medications Acetaminophen (Acetaminophen 325 Mg Tablet) 650 mg PO Q6H PRN PRN Reason: Pain, Mild (Pain Scale 1-3) Last Admin: 07/19/23 09:04 Dose: 650 mg Documented By: DELFINA Enoxaparin Sodium (Enoxaparin Sodium 40 Mg/0.4 Ml Syringe) 40 mg SUBCUT Q24H [facility] Last Admin: 07/18/23 16:38 Dose: 40 mg Documented By: MARYANN Ceftriaxone Sodium 1 gm/ (Sodium Chloride) 50 mls @ 100 mls/hr IV Q24H [facility] Last Infusion: 07/18/23 12:51 Dose: Infused Documented By: MARYANN Ondansetron HCl (Ondansetron Hcl 4 Mg/2 Ml Vial) 4 mg IVPUSH Q8H PRN PRN Reason: Nausea and Vomiting Oxycodone HCl (Oxycodone Hcl Immed Release 5 Mg Tablet) 5 mg PO Q6H PRN PRN Reason: Pain, Severe (Pain Scale 7-10) Last Admin: 07/16/23 22:21 Dose: 5 mg Documented By: LUIS Sodium Chloride (0.9 % Sodium Chloride Flush 3 Ml Syringe) 3 ml IVFLUSH QSHIFT [facility] Last Admin: 07/19/23 09:05 Dose: 3 ml Documented By: DELFINA Labs 07/19/23 05:33 07/19/23 05:33 Labs: Laboratory Results - last 24 hr 07/19/23 05:33 MCV 97.9 MCH 33.7 H MCHC 34.4 RDW 13.3 Plt Count 221 MPV 8.7 L Immature Gran % (Auto) 0.5 H Neut % (Auto) 50.7 Lymph % (Auto) 37.2 Petroleum % (Auto) 8.4 Eos % (Auto) 2.5 Baso % (Auto) 0.7 Lymph # (Auto) 1.5 Petroleum # (Auto) 0.3 Eos # (Auto) 0.1 Baso # (Auto) 0.0 Abs Immat Gran (auto) 0.02 Absolute Neuts (auto) 2.1 Absolute Nucleated RBC 0.000 Nucleated RBC % (auto) 0.0 Anion Gap 13 Estim Creat Clear Calc 51.8 Estimated GFR > 60 Fasting Glucose 100 H Calcium 9.2 Total Bilirubin 0.4 AST 20 ALT 11 Alkaline Phosphatase 78 Total Protein 6.7 Albumin 3.3 L Microbiology Microbiology Results: Microbiology 07/15/23 12:09 Urine Culture - Final Urine clean catch - Urine rodríguez top Raoultella plantrenny Assessment and Plan (1) Hydroureteronephrosis: Status: Acute (2) Urinary tract infection: Status: Acute Plan 88-year-old female with what appears to be no significant past medical history presents from son's house secondary to increasing weakness. States she fell in [place] approximately a month ago and required 3 days in the hospital and was discharged. Ever since her weakness has been worsening. ER evaluation significant for hydro ureter/nephrosis and bladder abnormalities. Hydroureteronephrosis pain resolved urology consult pending renal scan done reading pending Fengultmachelle marti UTI continue ceftriaxone Cervical spinal stenosis oxycodone for pain physical therapy consult pending Normocytic anemia No signs of bleeding Follow CBC DM 2 ss, ada diet hold metformin Check A1c HLD statin Hypothyroidism continue levothyroxine DNR DNI Attending Dr. Walt Fong Requires ongoing hospitalization for IV ceftriaxone to treat UTI pending cultures Quality Stroke Does the patient have a stroke diagnosis?: No VTE Prior VTE?: No VTE Risk Level:: Medical - moderate - high VTE Device Contraindication: Treatment Not Indicated VTE Drug Contraindication: N/A - Med Ordered
[2023-07-19 10:48] LABS: Estimated Average Glucose 88 mg/dL; Hemoglobin A1c % 4.7 % (<6.0)
[2023-07-19] MEDS: cefTRIAXone sodium 1 GM in 0.9 % Sodium Chloride 50 ML IV (11:05)
--- NOTE | 2023-07-19 14:19 | MHC.CM.PN ---
per rounds pt to be seen by physical therapy prior to dc [facility] will see pt pt not medically ready for dc
[2023-07-19] MEDS: oxyCODONE HCl Immed Release 5 MG TABLET PO ×2 (14:48→21:02)
[2023-07-19 15:25] VITALS: BP 122/66; PULSE 81; RESP 18; TEMP 36.8; O2SAT 97
[2023-07-19] MEDS: Enoxaparin Sodium 40 MG/0.4 ML SYRINGE SUBCUT (15:26)
[2023-07-19 19:52] VITALS: BP 137/69; PULSE 92; RESP 16; TEMP 36.5; O2SAT 96
[2023-07-20] MEDS: 0.9 % Sodium Chloride Flush 3 ML SYRINGE IVFLUSH ×2 (00:21→08:12)
[2023-07-20] MEDS: Acetaminophen 325 MG TABLET 650 MG PO (00:59)
[2023-07-20 02:00] VITALS: RESP 18
[2023-07-20 04:00] VITALS: BP 130/63; PULSE 81; RESP 16; TEMP 36; O2SAT 95
[2023-07-20 07:18] VITALS: BP 121/61; PULSE 80; RESP 20; TEMP 36.6; O2SAT 98
[2023-07-20] MEDS: Levothyroxine Sodium 75 MCG TABLET PO (08:10)
[2023-07-20] MEDS: oxyCODONE HCl Immed Release 5 MG TABLET PO (09:24)
--- NOTE | 2023-07-20 10:41 | HO.PM.IMPN ---
Subjective Subjective Date of Service: 07/20/23 Interval History: Follow up UTI, hydronephrosis no pain to back Review of Systems Via manual machinist: Denies chest pain Denies shortness of breath Denies nausea vomiting diarrhea Denies fever chills Physical Exam Vital Signs: Vital Signs: Last Vital Signs Temp 97.9 F 07/20/23 07:18 Pulse 80 07/20/23 07:18 Resp 20 07/20/23 07:18 BP 121/61 07/20/23 07:18 Pulse Ox 98 07/20/23 07:18 O2 Del Method Room Air 07/20/23 07:18 BMI result Body Mass Index 31.9 Appearing in no acute distress lung sounds are clear to auscultation heart regular rate rhythm, clear S1, S2 positive bowel sounds, abdomen is soft, nontender neuro patient is alert x3, no focal deficits Objective Data Active Medications Acetaminophen (Acetaminophen 325 Mg Tablet) 650 mg PO Q6H PRN PRN Reason: Pain, Mild (Pain Scale 1-3) Last Admin: 07/20/23 00:59 Dose: 650 mg Documented By: DARRON Enoxaparin Sodium (Enoxaparin Sodium 40 Mg/0.4 Ml Syringe) 40 mg SUBCUT Q24H [facility] Last Admin: 07/19/23 15:26 Dose: 40 mg Documented By: PIO Ceftriaxone Sodium 1 gm/ (Sodium Chloride) 50 mls @ 100 mls/hr IV Q24H [facility] Last Infusion: 07/19/23 11:39 Dose: Infused Documented By: DELFINA Levothyroxine Sodium (Levothyroxine Sodium 75 Mcg Tablet) 75 mcg PO DAILY [facility] Last Admin: 07/20/23 08:10 Dose: 75 mcg Documented By: DENNIS Ondansetron HCl (Ondansetron Hcl 4 Mg/2 Ml Vial) 4 mg IVPUSH Q8H PRN PRN Reason: Nausea and Vomiting Oxycodone HCl (Oxycodone Hcl Immed Release 5 Mg Tablet) 5 mg PO Q6H PRN PRN Reason: Pain, Severe (Pain Scale 7-10) Last Admin: 07/20/23 09:24 Dose: 5 mg Documented By: DENNIS Polyethylene Glycol (Polyethylene Glycol 3350 17 Gm Powd.Pack) 17 gm PO DAILY [facility] Sodium Chloride (0.9 % Sodium Chloride Flush 3 Ml Syringe) 3 ml IVFLUSH QSHIFT [facility] Last Admin: 07/20/23 08:12 Dose: 3 ml Documented By: DENNIS Labs 07/19/23 05:33 07/19/23 05:33 Labs: Laboratory Results - last 24 hr 07/19/23 05:33 Estimat Average Glucose 88 Hemoglobin A1c % 4.7 Assessment and Plan (1) Hydroureteronephrosis: Status: Acute (2) Urinary tract infection: Status: Acute Plan 88-year-old female with what appears to be no significant past medical history presents from son's house secondary to increasing weakness. States she fell in [place] approximately a month ago and required 3 days in the hospital and was discharged. Ever since her weakness has been worsening. ER evaluation significant for hydro ureter/nephrosis and bladder abnormalities. Hydroureteronephrosis pain resolved urology consult. no need for further workup renal scan done> normal reading as per urology Raoultella planticola UTI continue ceftriaxone Cervical spinal stenosis oxycodone for pain physical therapy consult pending Normocytic anemia No signs of bleeding Follow CBC DM 2 ss, ada diet hold metformin Check A1c HLD statin Hypothyroidism continue levothyroxine DNR DNI Attending Dr. Walt Fong Attempted to call patients sonKev [phone], no answer Requires ongoing hospitalization for IV ceftriaxone to treat UTI pending cultures Quality Stroke Does the patient have a stroke diagnosis?: No VTE Prior VTE?: No VTE Risk Level:: Medical - moderate - high VTE Device Contraindication: Treatment Not Indicated VTE Drug Contraindication: N/A - Med Ordered
[2023-07-20] MEDS: cefTRIAXone sodium 1 GM in 0.9 % Sodium Chloride 50 ML IV (11:10)
[2023-07-20] MEDS: polyethylene glycoL 3350 17 GM POWD.PACK PO (11:10)
--- NOTE | 2023-07-20 12:08 | MHC.CM.PN ---
EMR reviewed. Per MD rounds patient is medically cleared for dc. PT rec STR, family prefers to bring home. CM spoke with son, Kev, per patient request. Kev is current caregiver and working on securing an apartment for patient. Kev met with EC to explore support options and will follow up with [facility] once patient has moved to an apartment. IMM delivered. Kev will provide transportation at 1pm. RN and hospitalist aware. Additionally, Kev is working with [facility] to establish care with PCP and change MCR plan.
--- NOTE | 2023-07-20 13:11 | P.DS_ITS ---
DS: Providers Provider Date of Service: 07/20/23 Date of admission: 07/15/23 16:18 Primary care physician: Unknown Physician Consults: 07/15/23 16:22 Consult to Urology Routine Consulting Provider: Anthony Aleman Reason for consultation: hydronephrosis Has provider been notified: No 07/16/23 15:34 Consult to Wound Care Routine Reason for consultation: blanchable redness coccyx DS: Diagnosis Discharge Diagnosis (1) Hydroureteronephrosis: Status: Acute (2) Urinary tract infection: Status: Acute DS: Summary Hospital Course Hospital Course: History and physical as per admitting provider. 88-year-old female recently came from [place] a month ago patient was at her usual health status until she sustained a mechanical fall month ago in [place], patient stated that she needed hospitalization for 3 days then was discharged ever since the fall patient been having generalized weakness, feels like needles and numbness in both arms and legs, patient is able to ambulate before the fall but now she is mostly bed ridden. ER Course Workup failed to demonstrate any acute fractures or abnormalities safe spinal stenosis. CTA of abdomen pelvis demonstrated moderate right-sided hydroureter nephrosis without calculus with bladder changes. Urine with active sediment. She was given a g of ceftriaxone and admission requested 88-year-old woman admitted for hydroureter nephrosis with pain. She was seen and evaluated by Urology with no further workup recommended. She had a Lasix renal scan done which was normal according to Urology. She was found to have a Raoultella planticola UTI treated with IV Rocephin, will send home with Ceftin for total of 7 day treatment. Patient came from [place] few months ago and had a mechanical fall while still in [place]. 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 Patient is ambulating without weakness to lower extremities. She was seen by physical therapy recommended short-term rehab however unfortunately due to the patient recently coming for [place] she does not have health insurance that will cover a physical therapy stay and patient and family are not willing to pay [id number]. Therefore she will be discharged home with her son who cares for her full-time. She can follow-up with neurosurgery at [facility] for spinal stenosis follow-up. Diabetes mellitus type 2. Continue home medications Hyperlipidemia. Continue statin Hypothyroidism. Continue levothyroxine Normocytic anemia. No signs of bleeding, H&H above transfusion threshold Time Attestation Discharge coordination time: Greater than 30 minutes Quality: Safe Use of Opioids Does Pt have an Active Cancer Diagnosis on the Problem List?: No Quality: Stroke Does the patient have a stroke diagnosis?: No Physical Exam Vital Signs: Vital Signs: Last Vital Signs Temp 97.9 F 07/20/23 07:18 Pulse 80 07/20/23 07:18 Resp 20 07/20/23 07:18 BP 121/61 07/20/23 07:18 Pulse Ox 98 07/20/23 07:18 O2 Del Method Room Air 07/20/23 07:18 BMI result Body Mass Index 31.9 Appearing in no acute distress head is normocephalic atraumatic eyes pupils are PERRLA sclera is anicteric mouth throat mucous membranes are intact and moist neck is supple no lymphadenopathy, no JVD noted lung sounds are clear to auscultation heart regular rate rhythm, clear S1, S2 positive bowel sounds, abdomen is soft, nontender neuro patient is alert x3, no focal deficits DS: Data Data Completed and Pending Labs on day of discharge: Preliminary micro results at discharge 07/15/23 12:08 Blood Culture - Preliminary Blood - Venous No growth after 48 hours. 07/15/23 12:08 Blood Culture - Preliminary Blood - Venous No growth after 48 hours. Discharge Plan Discharge Anticipated Discharge Date/Time: 07/20/23 13:03 Patient Disposition: Home, Self-Care Discharge Diagnosis: Hydroureter nephrosis Raoultella planticola UTI Cervical spine stenosis Referrals: Cornelius Bethea MD, PhD [Physician] - 1 Week (Spinal stenosis) Discharge Medications: New cefuroxime axetil 500 mg tablet 500 mg PO BID Qty: 3 0RF Continued metformin 500 mg tablet 500 mg PO DAILY simvastatin 40 mg tablet 40 mg PO BEDTIME levothyroxine [Synthroid] 75 mcg tablet 75 mcg PO DAILY acetaminophen 325 mg Tablet 650 mg PO Q6H PRN (Reason: Pain (Scale Score 1-3)) Discharge Orders: Discharge Order (Routine); Ordered 07/20/23 Ordered By: Celine Oliva Diet: Advance to usual diet Activity on Discharge: As tolerated Stand Alone Forms: Patient Portal Discharge page Care Plan Goals: Discharge home with family assistance Health Concerns: Hydroureter nephrosis Raoultella planticola UTI Cervical spine stenosis Plan of Treatment: Follow-up with primary care provider as needed Follow up with neurosurgery for spinal stenosis Take all medications as prescribed Assessment: See discharge summary
== END 2023-07-20 13:26 | disposition home or self-care (01) | DRG 690 ==
LOC: HO.ED 16:06 → HO.EDOVER 17:32 → HO.S3 07-16 07:32
PROVIDERS: Admitting Provider Hospitalist; Emergency Provider Emergency Medicine; Visit Provider Nurse Practitioner Acute Care
DX: N13.6 Pyonephrosis (principal); Z66 Do not resuscitate; E03.9 Hypothyroidism, unspecified; D64.9 Anemia, unspecified; E11.9 Type 2 diabetes mellitus without complications; E78.5 Hyperlipidemia, unspecified; M48.02 Spinal stenosis, cervical region; Z20.822 Contact with and (suspected) exposure to COVID-19; Z91.040 Latex allergy status; Z23 Encounter for immunization; Z79.84 Long term (current) use of oral hypoglycemic drugs; Z79.890 Hormone replacement therapy; Z79.899 Other long term (current) drug therapy
CPT/HCPCS: 0241U; 36415; 70450; 71045; 72125; 72128; 72132; 72141; 74176; 78708; 80048; 80053; 80076; 81001; 82550; 83036; 83605; 83690; 83880; 84484; 85025; 85027; 87040; 87086; 87088; 87186; 90686; 93005; 97162; 99285; A9539; J0696; J1650

== ENCOUNTER → 2023-07-15 08:24 | Outpatient (BNV) | payer MEDICARE, SELFPAY | PROVIDERS: Emergency Provider Emergency Medicine; Visit Provider Hospitalist | DX: N13.30 Unspecified hydronephrosis (principal); N39.0 Urinary tract infection, site not specified; M48.02 Spinal stenosis, cervical region; E11.9 Type 2 diabetes mellitus without complications | CPT/HCPCS: 99222; 99232; 99238 ==

== ENCOUNTER → 2023-07-15 08:32 | Outpatient (BNV) | payer MEDICARE, SELFPAY | PROVIDERS: Emergency Provider Emergency Medicine; Visit Provider Internal Medicine Cardiovascular Disease | DX: M62.81 Muscle weakness (generalized) (principal); R94.31 Abnormal electrocardiogram [ECG] [EKG] | CPT/HCPCS: 93010 ==

== ENCOUNTER → 2023-07-15 16:18 | Outpatient (BNV) | payer MEDICARE, SELFPAY | PROVIDERS: Admitting Provider Hospitalist; Emergency Provider Emergency Medicine; Visit Provider Urology | DX: N13.30 Unspecified hydronephrosis (principal) | CPT/HCPCS: 99222 ==

== ENCOUNTER 2023-09-20 14:11 | Emergency (ER) | payer MEDICARE, MEDICAID, SELFPAY ==
[2023-09-20 14:24] VITALS: BP 122/84; PULSE 95; O2SAT 97
[2023-09-20 14:30] VITALS: BP 144/74; PULSE 90; RESP 18; TEMP 36.7; O2SAT 99; BMI 30.9
--- NOTE | 2023-09-20 14:40 | ED_ITS ---
HPI - General Adult General Chief complaint: General Medical Stated complaint: BODY PAIN FROM URGENT CARE, INSUR. ISSUES Time Seen by Provider: 09/20/23 14:26 Source: patient, EMS and welt treater Mode of arrival: EMS Limitations: language barrier History of Present Illness HPI narrative: Patient is an 88-year-old Namibian speaking female with history of cervical spinal stenosis presenting to the emergency department with complaint of ongoing numbness/tingling to bilateral hands and bilateral lower legs since a fall several months ago. States she was admitted here after her fall. Denies any new symptoms or changes in symptoms, denies any subsequent falls or other injuries. Recently returned to the from [place] and does not have a PCP here. MD complaint: hand and leg tingling Onset (ago): month(s) Associated symptoms: denies other symptoms Treatments prior to arrival: none Related Data Home Medications ?Medication ?Instructions ?Recorded ?Confirmed acetaminophen 325 mg tablet 650 mg PO Q6H PRN Pain (Scale 07/15/23 07/15/23 Score 1-3) levothyroxine 75 mcg tablet 75 mcg PO DAILY 07/15/23 07/15/23 (Synthroid) metformin 500 mg tablet 500 mg PO DAILY 07/15/23 07/15/23 simvastatin 40 mg tablet 40 mg PO BEDTIME 07/15/23 07/15/23 Previous Rx's ?Medication ?Instructions ?Recorded cefuroxime axetil 500 mg tablet 500 mg PO BID #3 tabs 07/20/23 cefuroxime axetil 500 mg tablet 500 mg PO BID #13 tabs 09/20/23 Allergies Allergy/AdvReac Type Severity Reaction Status Date / Time latex [LATEX] Allergy Unknown RASH Verified 09/20/23 14:30 Review of Systems Review of Systems: As per HPI. Yes all other systems are reviewed and are negative Constitutional: Constitutional: Reports as per HPI [facility] Past Medical History Medical History (Updated 09/20/23 @ 17:09 by Nancy Sam NP) Cervical spinal stenosis Social History Social History Household Members: Children Housing: House Do you presently have visiting nurse or other home services: Yes ([employer] in [employer]) Patient Tobacco Use Status: Never used Tobacco Advance Directives: No Advance Directives Information Provided: Yes Do you have a plan to hurt others: No Plan service: No Physical Exam ED Vital Signs: Vital Signs - 24 hr 09/20/23 14:30 09/20/23 17:50 Temperature 98.1 F 97.8 F Pulse Rate 90 99 Respiratory Rate 18 18 Blood Pressure 144/74 H 176/89 H Pulse Oximetry 99 100 Oxygen Delivery Method Room Air Room Air BMI result Body Mass Index 30.9 Vital signs have been reviewed and appear to be correct. Blood pressure elevated. Heart rate normal. Respiratory rate normal. Temperature normal. Oxygen saturation normal. Const General: cooperative, healthy appearing and no acute distress Orientation/consciousness: oriented to person, oriented to place, oriented to time and patient oriented x3 Limitations: no limitations HENMT Head: Yes normocephalic and Yes atraumatic Ears: external ears normal General nose exam: Normal external nose present Face and sinus: Yes face symmetric Mouth: oropharynx normal and moist mucous membranes Throat: Yes uvula midline Eyes Pupils: Equal, round and reactive pupils present Neck Neck: Yes normal visual inspection and Yes supple Resp Effort & Inspection: normal respiratory effort and able to speak in complete sentences Auscultation: clear to auscultation bilaterally Cardio Rate: regular rate Rhythm: regular rhythm Heart sounds: S1 normal heart sound present and S2 normal heart sound present GI Palpation (GI): Soft to palpation and nontender Auscultation: normoactive bowel sounds General: Yes no CVA tenderness Back/Spine/Pelvis Back: no CVA tenderness Skin General skin exam: elasticity normal and turgor normal Neuro General: oriented to person, oriented to place, oriented to time, patient oriented x3, moves all extremities, no focal motor deficits and CN's II-XI intact bilaterally Cranial nerves: Yes Equal, round and reactive pupils present Cognition (Neuro): normal cognition Motor exam (neuro): Pronator motor function not present, no tremor noted, Normal motor muscle tone present throughout, Motor abnormalities not present and Abnormal motor strength present (4/5 strength) bilateral distal upper extremity Sensory Exam: Normal double simultaneous stimulation for sensation Extrem General: Yes full ROM, Yes no pedal edema and Yes no calf tenderness Psych Mental Status: mental status grossly normal Affect: normal affect Thought process: Normal thought process present NIH Stroke Scale Internal: Initial- Upon Arrival Time: 15:19 Level of Consciousness: Alert Level of Consciousness Questions: Answers both questions correctly Level of Consciousness Commands: Performs both tasks correctly Best Gaze: Normal Visual: No visual loss Facial Palsy: Normal Motor Arm (Right): No drift Motor Arm (Left): No drift Motor Leg (Right): No drift Motor Leg (Left): No drift Limb Ataxia: Absent Sensory: Normal Best Language: No aphasia Dysarthia: Normal Extinction and Inattention: No abnormality Score: 0 Course Reevaluation(s) Reevaluation #1: Family now at bedside with patient. Son, Kev, updated on plan of care. He is comfortable bringing patient home. Observation care revealed that patient does not meet medical necessity for hospitalization. Final disposition discussed with patient and family. The patient completed observation care at 18:30, total time in observation care was <1 hours. Time: 18:28 Medical Decision Making Medical Decision Making MDM Narrative: Patient is an 88-year-old [place]ibian speaking female with history of cervical spinal stenosis presenting to the emergency department with complaint of ongoing numbness/tingling to bilateral hands and bilateral lower legs since a fall several months ago. On exam patient is awake, A+Ox3, BP mildly elevated, VS otherwise WNL, afebrile, normal neurological exam without focal deficits, physical exam findings as above. Review of EMR shows that patient was admitted here for workup of same symptoms on 07/15/23, short term rehab was recommended but patient's insurance would not cover and patient/family did not want to pay out of pocket. She was instructed to follow up with neurosurgery outpatient which she did not do. At same visit on 07/15, patient also noted to have UTI. Given reported symptoms and physical exam findings, initial differential includes UTI, cervical spinal stenosis. Do not suspect acute stroke/ICH. Urinalysis notable for 3+ leukocytes, >50 WBCs, 3+ blood, patient also complaining of urinary frequency. Will treat for UTI at this time with cefuroxime. Discussed option of PT evaluation with patient, but due to the fact that she still does not have insurance here, patient is declining this at this time. Will refer to neurosurgery outpatient as patient never followed up as rec ommended at discharge from hospital in June. Patient requesting that her son be contacted with update and to come pick her up. Son not able to be reached via telephone at this time. Multiple phone numbers attempted without success. julia Amador RN notified and Florina STEELE contacted, they will attempt to get in touch with patient's family to come pick her up. Patient is unable to state her address, or any phone numbers for family and does not have keys to her home. Patient placed on physician observation pending contact with family. Differential Diagnosis Differential Diagnoses: The differential diagnosis associated with the presentation includes As per [facility] Lab Data [facility] Lab Attestation statement: I reviewed the patient's lab results. As per [facility] Labs: Lab Results 09/20/23 Range/Units 15:52 Urine Color Yellow Urine Appearance Cloudy Urine pH 6.0 (5.0-9.0) Ur Specific [place] 1.015 (1.005-1.025) Urine Protein Trace (Neg-Trace) mg/dL Urine Glucose (UA) Negative (Negative) mg/dL Urine Ketones Negative (Negative) mg/dL Urine Blood Large (3+) H (Negative) Urine Nitrite Negative (Negative) Ur Leukocyte Esterase Large (3+) H (Negative) Urine RBC >20 H (0-2) /HPF Urine WBC >50 H (0-5) /HPF Ur Squamous Epith Cells 3-5 (0-2) /HPF Urine Bacteria 1+ (None Seen) Hyaline Casts 0-2 (0-2) /LPF External Record Review External record reviewed: Inpatient record, Office record and Outpatient record Prescription Management I considered prescription management with: Antibiotic Discharge Plan Discharge Clinical Impression: Urinary tract infection, Cervical spinal stenosis Patient Disposition: Home, Self-Care Instructions: Urinary Tract Infection in Women (DC), Cervical Spinal Stenosis (ED) Additional Instructions: You were evaluated in the emergency department today for numbness and tingling to your hands and legs for months. You need to follow up with Dr. Bethea as recommended at your previous discharge. Your urine shows evidence of infection. You are being treated with a course of antibiotics, please complete the full course as prescribed. You were given information for speaking with the financial department to establish insurance here. Return to the emergency department with new back or flank pain, fever, increasing weakness or any other concerning symptoms. Prescriptions: New cefuroxime axetil 500 mg tablet 500 mg PO BID Qty: 13 0RF No Action metformin 500 mg tablet 500 mg PO DAILY simvastatin 40 mg tablet 40 mg PO BEDTIME levothyroxine [Synthroid] 75 mcg tablet 75 mcg PO DAILY acetaminophen 325 mg Tablet 650 mg PO Q6H PRN (Reason: Pain (Scale Score 1-3)) cefuroxime axetil 500 mg tablet 500 mg PO BID Qty: 3 0RF Referrals: Cornelius Bethea MD, PhD [Physician] - Print Language: Namibian
[2023-09-20 16:02] LABS: Appearance Urine Cloudy; Color Urine Yellow; Glucose Urine UA Negative (Negative); Leukocyte Esterase Urine Large (3+) (Negative); Nitrite Urine Negative (Negative); Specific Gravity - Urine 1.015 (1.005-1.025); UMIC TRIGGER UACC YES; Urine Blood Large (3+) (Negative); Urine Ketones Negative (Negative); Urine Protein Trace mg/dL (Neg-Trace)
[2023-09-20 16:17] LABS: Bacteria Urine 1+ (None Seen); Hyaline Casts Urine 0-2 /LPF (0-2); RBC Urine >20 /HPF (0-2); UACC Culture Trigger YES; WBC Urine >50 /HPF (0-5)
[2023-09-20 17:50] VITALS: BP 176/89; PULSE 99; RESP 18; TEMP 36.6; O2SAT 100
[2023-09-20] MEDS: cefuroxime axetiL 500 MG TABLET PO (18:47)
[2023-09-20 19:18] VITALS: BP 176/89; PULSE 99; RESP 18; TEMP 36.6; O2SAT 100
--- NOTE | 2023-09-20 19:22 | PC.NURSE ---
during the time the patient was here she was a&o, ambulated with steady gait with walker and stby assist, patients urine was obtained- pt found to have a uti, pt was medicated. upon the PASTRY COOK HELPER attempting to call son to forklift picker patient and to tell them what was going on per request of the patient it was found that we were unable to get ahold of him. pt had no other number to call. román STEELE were called to go to the patients sons house to get them to come to the hospital to pick the mother up. son came and this nurse discharged the patient to the care of the son. pt had no complaints upon discharge.
== END 2023-09-20 19:25 | disposition home or self-care (01) ==
PROVIDERS: Registered Nurse Emergency; Emergency Provider Emergency Medicine
DX: N39.0 Urinary tract infection, site not specified (principal); M48.02 Spinal stenosis, cervical region; M79.10 Myalgia, unspecified site; R20.0 Anesthesia of skin; Z79.899 Other long term (current) drug therapy
CPT/HCPCS: 81001; 81003; 87086; 87088; 87186; 99283

== ENCOUNTER 2023-09-24 10:13 | Outpatient (AMB) | payer MEDICARE, MEDICAID, SELFPAY ==
--- NOTE | 2023-09-24 10:26 | A.SPINEOV_ITS ---
Intake Visit Reasons: ED f/u spinal compression Intake Note: Ms. Hernandez is here today for Numbness of hands and legs. Key Entry Operator Required: Yes Allergies latex [LATEX] Allergy (Unknown, Verified 09/20/23 14:30) RASH Assessment & Plan Assessment & Plan (1) Cervical myelopathy: Code(s): G95.9 - Disease of spinal cord, unspecified Category: Medical Plan Dear colleague, Thank you for referring Orin to our office today. She is a pleasant 88-year-old female who was referred from the emergency department here at [facility], [place]. She comes in today with a chief complaint of bilateral hand numbness/tingling following a fall 3 months ago. She states she had no symptoms prior to her fall. Since her fall she has had worsening urinary incontinence, bilateral hand numbness, falls/balance issues, and decreased hand strength. She states her symptoms are now to the point where she is afraid to walk without assistance, and is wearing knee braces, and has been placed on new medication to help her with urinary incontinence. Of note, she was seen here in the emergency department back in June when she had her MRI completed, and referred to our office. Unfortunately she did not follow-up with us, and was evaluated again in the emergency department 09/20/23, and again referred to our office. She is also being treated for UTI discovered during her evaluation in the emergency department. She states she has only been utilizing [id number] medications in an attempt to mitigate her symptoms. These have not been very useful for her. PMH: History of hysterectomy, history of cholecystectomy, Type 2 diabetes, hypothyroidism, hyperlipidemia. Social hx: Patient does not smoke, reports no substance use. Medications: Tylenol, cefuroxime, levothyroxine, metformin, simvastatin. Allergies: Latex. Physical exam: The patient has 3/5 strength with bilateral hand education department registrar, and interossei testing. She has 4/5 strength in the remainder of her upper extremities. Her bilateral lower extremities are 5/5, but she needs to be prompted to fully engage them. She is diffusely hyperreflexive, worse on the right. She reports decreased sensation in her bilateral hands and a feeling of tingling in her bilateral hands diffusely. The rest of her sensation is grossly intact. She ambulates very slowly and needs to be assisted. She rises from a seated position very slowly with the assistance of a chair. (+) Ronquillo's bilaterally, (+) 1 beat of clonus bilaterally. Imaging review: MRI of the cervical spine completed here at [facility], [place] is somewhat limited due to the patient's inability to tolerate the MRI. However, there is severe spinal cord compression at C3-4 with evidence of myelomalacia and T2 signal change. There is also severe spinal cord compression at C4-5, again with evidence of myelomalacia, however this level is less severe than the superior level. There is also moderate-severe cord compression at C5- 6 and C6-7, however these levels are much less affected than the previously mentioned once. Impression: Orin is a pleasant 88-year-old female comes in today with a chief complaint of bilateral hand numbness, and several worsening symptoms that have arisen since her fall 3 months ago. Most concerning these are the symptoms that can be correlated with myelomalacia, such as worsening incontinence, worsening balance issues, and recurrent falls. Most notable of this patient story is that she was reportedly ?completely fine? with no significant symptoms to report prior to her fall. On MRI this does not appear to be an acute issue, rather was most likely severe compression that took place over the course of many years. The patient for some reason likely became symptomatic after her fall. Given she is symptomatic of cervical myelopathy, she will likely need surgical correction to decrease the compression on her spinal cord. At the very least C3-4 will most likely need to be addressed. I reached out to the attending neurosurgeon Dr. Bethea and asked that he review this case. I sent the patient for a set of flexion/extension x-rays, and informed her that we will call her either at the end of the day today, or very early next week to discuss if she has a surgical candidate and if surgery will help resolve her symptoms after her case is reviewed with Dr. Bethea. Thank you for allowing us to care for your patient. The total time spent with this visit with this patient was 45 minutes reviewing history, physical exam, MRI imaging review, and implementation of treatment plan or further diagnostic testing Roger eBthea MD,PhD [facility] [place] Orders: Orders XR cervical spine 4V Today G95.9 - Disease of spinal cord, unspecified Coding Level of Care Code New Pt Level 4 (09677) Diagnoses Cervical myelopathy G95.9
== END 2023-09-24 11:25 | disposition home or self-care (01) ==
PROVIDERS: Visit Provider Physician Assistant
DX: G95.9 Disease of spinal cord, unspecified (principal)
CPT/HCPCS: 99204

== ENCOUNTER 2023-09-24 10:13 | Outpatient (REF) | payer MEDICARE, MEDICAID, SELFPAY ==
--- NOTE | ~2023-09-24 | XR_ITS ---
EXAMINATION: XR CERVICAL SPINE CLINICAL INFORMATION: Diseases spinal cord, unspecified COMPARISON: Cervical spine 04/16/2020 TECHNIQUE: AP, lateral and lateral flexion and extension views FINDINGS: The inferior endplate of C6 and C7 are on the neutral lateral view C6 and C7 are obscured by the soft tissues of the patient's shoulder on the flexion and extension views There is no fracture. Prevertebral soft tissues are within normal limits. There is disc space narrowing at C3-C4 and C5-C6 with large anterior marginal osteophytes. There is no subluxation. There is no change in alignment with flexion and extension. There is slight straightening of the usual cervical lordosis which can be due to patient positioning or to muscle spasm. XR/XR cervical spine 4V IMPRESSION: 1. 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 2. Straightening of the usual cervical lordosis which can be due to patient positioning or to muscle spasm.
== END 2023-09-24 10:14 | disposition home or self-care (01) ==
LOC: HO.HOSX 10:13
PROVIDERS: Visit Provider Physician Assistant
DX: G95.9 Disease of spinal cord, unspecified (principal); Z91.81 History of falling
CPT/HCPCS: 72050; 99202

== ENCOUNTER 2023-10-23 03:16 | Emergency (ER) | payer MEDICARE, MEDICAID, SELFPAY ==
--- NOTE | 2023-10-23 | ECG_ITS ---
Test Reason : CHESTPAIN Blood Pressure : / mmHG Vent. Rate : 091 BPM Atrial Rate : 087 BPM P-R Int : 000 ms QRS Dur : 076 ms QT Int : 372 ms P-R-T Axes : 000 013 010 degrees QTc Int : 457 ms Normal sinus rhythm Cannot rule out Anterior infarct , age undetermined Abnormal ECG When compared with ECG of 15-JUL-2023 08:59, No significant changes seen Referred By: Generic ED Physician Electronically Signed By:DEREK DHILLON
--- NOTE | ~2023-10-23 | XR_ITS ---
EXAMINATION: XR CHEST CLINICAL INFORMATION: Chest pain COMPARISON: 07/15/2023 TECHNIQUE: Frontal view of the chest was obtained. FINDINGS: The lungs are clear with no focal consolidation. No evidence of pneumothorax, pulmonary edema, or pleural effusions. The cardiomediastinal contour is unremarkable. Multilevel degenerative changes in the spine. XR/XR chest 1V IMPRESSION: No acute cardiopulmonary findings.
--- NOTE | ~2023-10-23 | CT_ITS ---
EXAMINATION: CT ANGIOGRAM OF THE CHEST WITH AND WITHOUT CONTRAST (CT PULMONARY ANGIOGRAM FOR PE) CLINICAL INFORMATION: Reason for Exam sob COMPARISON: Chest x-ray from earlier the same day TECHNIQUE: Prior to contrast administration, noncontrast localization images were obtained. Subsequently, multidetector volumetric imaging was performed from the thoracic inlet to below the diaphragms following the administration of 80 mL Omnipaque 350 intravenous contrast. No contrast reaction reported Sagittal, coronal, and MIP oblique sagittal reformatted images were obtained on the CT workstation, uploaded to PACS, and reviewed. This CT examination was performed using dose optimization techniques as appropriate, variously including the following: *Automated exposure control *Adjustment of mA and/or kV according to patient size (this includes techniques or standardized protocols for targeted exams where dose is matched to indication/reason for exam; i.e. extremities or head) *Use of iterative reconstruction technique Total exam dose-length product 451 mGy-cm FINDINGS: QUALITY OF STUDY/CONTRAST BOLUS: Satisfactory. PULMONARY ARTERIES: No pulmonary emboli. THORACIC AORTA: No aneurysm. LUN mm calcified right upper lobe nodule suggestive of a calcified granuloma. Increased peripheral reticular markings in the lungs questionable for mild interstitial lung disease. Dependent atelectasis at both lung bases. PLEURA: No pleural effusion or pneumothorax. MEDIASTINUM: Slightly enlarged heart.. No pericardial effusion. No hilar or mediastinal lymphadenopathy. No evidence of septal bowing or right heart strain. CORONARY ARTERY CALCIFICATION: Mild CHEST WALL/AXILLA: No axillary or internal mammary lymphadenopathy. OSSEOUS STRUCTURES: No acute or suspicious osseous abnormality. Degenerative changes of the spine and shoulders. UPPER ABDOMEN: Large cyst in the left lobe of the liver. Diverticulosis. 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 No reflux of contrast into the hepatic veins to suggest elevated right heart pressures. CT/CT angio chest PE protocol IMPRESSION: No evidence of pulmonary embolism. VTE: negative
--- NOTE | ~2023-10-23 | CT_ITS ---
EXAMINATION: CT HEAD WITHOUT CONTRAST CLINICAL INFORMATION: Headache COMPARISON: 07/15/2023. TECHNIQUE: Contiguous axial imaging was performed from the skull base to vertex without intravenous administration of contrast. This CT examination was performed using dose optimization techniques as appropriate, variously including the following: *Automated exposure control *Adjustment of mA and/or kV according to patient size (this includes techniques or standardized protocols for targeted exams where dose is matched to indication/reason for exam; i.e. extremities or head) *Use of iterative reconstruction technique DLP: 711 mGy-cm FINDINGS: There is no evidence of intracranial hemorrhage, extra-axial fluid collection, mass effect, edema, or acute territorial infarct. Ventricles, sulci, and cisterns are mildly diffusely prominent, in keeping with age appropriate involutional changes. There is no shift of midline. 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 Mild to moderate chronic white matter hypodensities are present consistent with small vessel ischemic changes. There are bilateral choroid plexus xanthogranulomas. There is an empty sella noted. Moderate atheromatous calcification of the vertebral arteries and carotid siphons noted. Imaged paranasal sinuses, and mastoid air cells are normally pneumatized. The bony calvarium demonstrates no fracture or focal bony lesion. Mild hyperostosis frontalis. Globes are aphakic. Globes and orbits are otherwise normal in appearance. No extracranial soft tissue abnormality. CT/CT head/brain wo IV con IMPRESSION: No acute intracranial abnormality. No significant interval change from 07/15/2023.
[2023-10-23 03:19] VITALS: BP 149/72; PULSE 100; O2SAT 96
[2023-10-23 03:25] VITALS: BP 152/77; PULSE 92; RESP 16; TEMP 36.8; O2SAT 100; BMI 32.4
[2023-10-23 03:32] VITALS: BP 152/77; PULSE 92; RESP 16; TEMP 36.8; O2SAT 100
--- NOTE | 2023-10-23 03:36 | MHC.EDTECH ---
Patient came in by ambulance,changed into hospital attire,vitals taken,patient placed on the compliance monitor,EKG taken per order and signed by provider,call weinstein in reach
--- NOTE | 2023-10-23 04:14 | ED_ITS ---
HPI - Chest Pain General Chief Complaint: Chest Pain Stated Complaint: cp Time Seen by Provider: 10/23/23 04:05 History of Present Illness HPI narrative: Patient is an 88-year-old female presents today with having increasing shortness of breath. Patient fell in [place] about 3 months ago. There has no fever no chills. There was no coughing or congestion or upper respiratory symptoms. There has no diaphoresis. Patient is from home. Feels like she can not catch her breath. Has a history of diabetes history of hypertension no history of high cholesterol no history of IA no history of smoking in the past. No trauma to the chest. Patient denies any changes in medication. No diaphoresis. Symptoms started about 45 minutes prior to arrival Related Data Home Medications ?Medication ?Instructions ?Recorded ?Confirmed acetaminophen 325 mg tablet 650 mg PO Q6H PRN Pain (Scale 07/15/23 07/15/23 Score 1-3) levothyroxine 75 mcg tablet 75 mcg PO DAILY 07/15/23 07/15/23 (Synthroid) metformin 500 mg tablet 500 mg PO DAILY 07/15/23 07/15/23 simvastatin 40 mg tablet 40 mg PO BEDTIME 07/15/23 07/15/23 Previous Rx's ?Medication ?Instructions ?Recorded cefuroxime axetil 500 mg tablet 500 mg PO BID #3 tabs 07/20/23 cefuroxime axetil 500 mg tablet 500 mg PO BID #13 tabs 09/20/23 Allergies Allergy/AdvReac Type Severity Reaction Status Date / Time latex [LATEX] Allergy Intermediate RASH Verified 10/23/23 03:43 Review of Systems 2 Review of Systems: Positive shortness of breath Yes all other systems are reviewed and are negative PMFSH Past Medical History Attestation statement: The following information was validated with the patient. Medical History Anxiety Depression Arthritis UTI (urinary tract infection) GERD (gastroesophageal reflux disease) Renal calculi Asthma HTN (hypertension) Elevated cholesterol Diabetes Hypothyroid Cervical spinal stenosis Surgical History Hx of hand surgery History of bladder surgery Hx of right knee surgery Hx of blepharoplasty Hx of lithotripsy Hx of cholecystectomy Hx of hysterectomy Hx of tubal ligation Hx of dilation and curettage H/O colonoscopy Social History Social History Household Members: Children Housing: House Do you presently have visiting nurse or other home services: Yes ([employer] in [place]) Patient Tobacco Use Status: Never used Tobacco Smoked in Last 30 Days: No Use of substances other than those prescribed or required for medical reasons: No Advance Directives: Yes Advance Directives on File: Yes Advance Directives Date on File: 07/21/23 service: No Physical Exam 2 Vital Signs: Vital Signs: Last Vital Signs Temp 98.0 F 10/23/23 05:34 Pulse 84 10/23/23 05:34 Resp 16 10/23/23 05:34 BP 142/76 H 10/23/23 05:34 Pulse Ox 100 10/23/23 05:34 O2 Del Method Room Air 10/23/23 05:34 BMI result Body Mass Index 32.4 Appearance: Alert. Oriented X3. No acute distress. Eyes: Pupils equal, round and reactive to light. ENT: Pharynx normal. Neck: Normal inspection. Neck supple. No lymph nodes noted. No crepitus CVS: Normal heart rate and rhythm. Pulses normal. Normal S1 and S2 Respiratory: No respiratory distress. Breath sounds normal. No Wheezing. No rales Abdomen: Soft and nontender. No rigidity. No distention. good BS x4 Skin: Skin warm and dry. Normal skin color. Normal skin turgor. Extremities: No lower extremity edema. Neurovascular intact to all extremities. No Lacerations. No Rash Neuro: Oriented X 3. No motor deficit. No sensory deficit. Moving all extermities. No slurred speech Medications Administered Discontinued Medications Generic Name Dose Route Start Last Admin Trade Name Freq PRN Reason Stop Dose Admin Sodium Chloride 500 mls @ 999 mls/hr 10/23/23 04:15 10/23/23 06:06 Ns IV 10/23/23 04:45 Infused .Q31M JESUS Infusion Iohexol 60 ml 10/23/23 06:03 10/23/23 06:03 Iohexol 350 Mg/Ml 100 Ml Infus..Btl IV 10/23/23 06:04 60 ml ONCE ONE Administration Medical Decision Making Medical Decision Making MDM Narrative: Patient had nonspecific weakness shortness of breath my interpretation of her EKG showed a sinus rhythm heart rate is 90 [place] QRS QTC normal there has no acute ST segment elevation. Patient's 1st set of enzymes is negative. Pain is atypical for ACS. Will repeat a 2nd set of enzymes. Patient's heart score is a 3 if her enzymes are negative. She has a history of hypercholesterolemia and diabetes. No history of IA in the past. Positive history of hypertension. No history of smoking. My interpretation of patient's chest x-ray was grossly negative for any acute evidence of pneumonia. No pneumothorax. However patient's D-dimer is elevated she is complaining of shortness of breath. A CTA the chest was ordered. The results currently pending. She is currently pending the 2nd set of troponin and the CTA results. Differential Diagnosis Differential Diagnoses: The differential diagnosis associated with the presentation includes Pulmonary emboli, pneumothorax, pneumonia, ACS. Admission/Observation Consideration of admission/observation: Escalation of care including admission/observation considered Lab Data MDM Lab Attestation statement: I reviewed the patient's lab results. 10/23/23 04:42 10/23/23 04:42 Labs: Lab Results 10/23/23 Range/Units 04:42 WBC 5.1 (4.8-10.8) X10*3/uL RBC 3.28 L (4.20-5.50) X10*6/uL Hgb 10.5 L (12.0-16.0) g/dl Hct 31.8 L (37.0-47.0) % MCV 97.0 (80.0-98.0) fL MCH 32.0 (27.0-33.0) pg MCHC 33.0 (31.0-35.0) g/dl RDW 13.1 (11.0-16.0) % Plt Count 147 L D (160-400) X10*3/uL MPV 8.4 L (9.4-12.3) fL Immature Gran % (Auto) 0.2 (0.0-0.4) % Neut % (Auto) 53.5 (45-73) % Lymph % (Auto) 35.2 (20-40) % [place] % (Auto) 8.1 (2-11) % Eos % (Auto) 2.4 (0-4) % Baso % (Auto) 0.6 (0-2) % Lymph # (Auto) 1.8 (1.2-4.9) X10*3/uL [place] # (Auto) 0.4 (0.1-1.2) X10*3/uL Eos # (Auto) 0.1 (0.0-0.4) X10*3/uL Baso # (Auto) 0.0 (0.0-0.2) X10*3/uL Abs Immat Gran (auto) 0.01 (0.00-0.03) X10*3/uL Absolute Neuts (auto) 2.7 (2.0-8.3) x10*3/uL Absolute Nucleated RBC 0.000 (0.0-0.012) X10*3/uL Nucleated RBC % (auto) 0.0 (0.0-0.2) /100WBC D-Dimer High Sensitivty 1054 NG/ML Sodium 145 (135-145) mmol/L Potassium 4.2 (3.3-5.1) mmol/L Chloride 112 H (96-108) mmol/L Carbon Dioxide 23 (22-29) mmol/L Anion Gap 14 (12-20) BUN 19 H (9-16) mg/dL Creatinine 0.94 (0.5-1.4) mg/dL Estim Creat Clear Calc 43.9 Estimated GFR 56 Random Glucose 106 (60-115) mg/dL Calcium 9.2 (8.4-10.2) mg/dL Total Bilirubin 0.8 (0.0-1.0) mg/dL Direct Bilirubin 0.3 (0.0-0.5) mg/dL AST 14 (5-31) U/L ALT 5 (0-31) U/L Alkaline Phosphatase 78 (39-117) U/L Total Creatine Kinase 42 (26-140) U/L Troponin I High Sens 9.5 (<3.5-17.0) ng/L Total Protein 6.7 (6.5-8.0) g/dL Albumin 3.6 (3.5-5.0) g/dL Independent Interpretation I performed an independent interpretation of an: EKG (Sinus heart rate is 90 [place] QRS QTC normal no acute ST segment elevation.) Radiology Impression Discussion of test interpretation with radiology: I have reviewed the radiologist's reading. (Of the chest x-ray which was grossly negative) External Record Review External record reviewed: Inpatient record Chronic Conditions Patient?s care impacted by: Diabetes and Hypertension Discharge Plan Discharge Clinical Impression: Shortness of breath Patient Disposition: Still a Patient Prescriptions: No Action metformin 500 mg tablet 500 mg PO DAILY simvastatin 40 mg tablet 40 mg PO BEDTIME levothyroxine [Synthroid] 75 mcg tablet 75 mcg PO DAILY acetaminophen 325 mg Tablet 650 mg PO Q6H PRN (Reason: Pain (Scale Score 1-3)) cefuroxime axetil 500 mg tablet 500 mg PO BID Qty: 3 0RF cefuroxime axetil 500 mg tablet 500 mg PO BID Qty: 13 0RF Print Language: [place]
[2023-10-23] MEDS: 0.9 % Sodium Chloride 500 ML 999 ML IV (04:44)
[2023-10-23 04:49] LABS: Basophils Percent Auto 0.6 % (0-2); Eosinophils Absolute Auto 0.1 X10*3/uL (0.0-0.4); Eosinophils Percent Auto 2.4 % (0-4); Hematocrit 31.8 % (37.0-47.0); Hemoglobin 10.5 g/dl (12.0-16.0); Imm Gran Abs Auto 0.01 X10*3/uL (0.00-0.03); Imm Gran Pct Auto 0.2 % (0.0-0.4); Lymphocytes Absolute Auto 1.8 X10*3/uL (1.2-4.9); Lymphocytes Percent Auto 35.2 % (20-40); MANUAL DIFF FLAG NO; Mean Platelet Volume 8.4 fL (9.4-12.3); Monocytes Absolute Auto 0.4 X10*3/uL (0.1-1.2); Monocytes Percent Auto 8.1 % (2-11); Neutrophils Absolute Auto 2.7 x10*3/uL (2.0-8.3); Neutrophils Percent Auto 53.5 % (45-73); Platelet Count 147 X10*3/uL (160-400); Red Blood Count 3.28 X10*6/uL (4.20-5.50); Red Cell Distribution Width 13.1 % (11.0-16.0); White Blood Count 5.1 X10*3/uL (4.8-10.8)
[2023-10-23 04:58] LABS: D Dimer High Sensitivity 1054 NG/ML
[2023-10-23 05:03] LABS: Alanine Aminotransferase 5 U/L (0-31); Albumin Level 3.6 g/dL (3.5-5.0); Alkaline Phosphatase 78 U/L (39-117); Anion Gap 14 (12-20); Aspartate Amino Transferase 14 U/L (5-31); Bilirubin Direct 0.3 mg/dL (0.0-0.5); Bilirubin Total 0.8 mg/dL (0.0-1.0); Blood Urea Nitrogen 19 mg/dL (9-16); Calcium 9.2 mg/dL (8.4-10.2); Carbon Dioxide 23 mmol/L (22-29); Chloride 112 mmol/L (96-108); Creatinine Clr Calc Pharmacy 43.9; Estimated Glomerular Filt Rate 56; Glucose Random 106 mg/dL (60-115); Potassium 4.2 mmol/L (3.3-5.1); Sodium 145 mmol/L (135-145); Total Protein 6.7 g/dL (6.5-8.0)
[2023-10-23 05:10] LABS: Troponin-I High Sensitivity 9.5 ng/L (<3.5-17.0)
[2023-10-23 05:34] VITALS: BP 142/76; PULSE 84; RESP 16; TEMP 36.7; O2SAT 100
--- NOTE | 2023-10-23 05:34 | MHC.EDTECH ---
Hourly rounds and vitals completed,patient is resting at this time,call weinstein in reach
[2023-10-23] MEDS: iohexoL 350 MG/ML 100 ML INFUS..BTL 60 ML IV (06:03)
[2023-10-23 07:59] LABS: Troponin-I High Sensitivity 10.7 ng/L (<3.5-17.0)
[2023-10-23 08:43] LABS: Appearance Urine Clear; Color Urine Yellow; Glucose Urine UA Negative (Negative); Leukocyte Esterase Urine Moderate (2+) (Negative); Nitrite Urine Negative (Negative); Specific Gravity - Urine >= 1.030 (1.005-1.025); UMIC TRIGGER UACC YES; Urine Blood Negative (Negative); Urine Ketones Negative (Negative); Urine Protein Negative (Neg-Trace)
[2023-10-23 08:56] LABS: Bacteria Urine Trace (None Seen); Hyaline Casts Urine 0-2 /LPF (0-2); RBC Urine 0-2 /HPF (0-2); Squamous Epithelial Cell Urine 0-2 /HPF (0-2); UACC Culture Trigger YES; WBC Urine 21-50 /HPF (0-5)
[2023-10-23 09:15] VITALS: BP 154/82; PULSE 80; RESP 18; TEMP 36.8; O2SAT 98
[2023-10-23 09:16] VITALS: BP 154/82; PULSE 80; RESP 18; TEMP 36.8; O2SAT 98
--- NOTE | 2023-10-23 09:30 | PC.NURSE ---
Called [facility] to pick patient up to bring to dialysis- [facility] stating she is on her way
== END 2023-10-23 09:28 | disposition home or self-care (01) ==
PROVIDERS: Emergency Provider Emergency Medicine Emergency Medical Services
DX: R06.02 Shortness of breath (principal); R07.9 Chest pain, unspecified; R53.1 Weakness; E11.9 Type 2 diabetes mellitus without complications; I10 Essential (primary) hypertension; E78.00 Pure hypercholesterolemia, unspecified; Z79.84 Long term (current) use of oral hypoglycemic drugs; Z79.02 Long term (current) use of antithrombotics/antiplatelets; Z79.899 Other long term (current) drug therapy
CPT/HCPCS: 36415; 70450; 71045; 71275; 80048; 80076; 81001; 82550; 84484; 85025; 85379; 87086; 93005; 96360; 99284; 99285; Q9967

== ENCOUNTER → 2023-10-23 03:22 | Outpatient (BNV) | payer MEDICARE, MEDICAID, SELFPAY | PROVIDERS: Emergency Provider Emergency Medicine Emergency Medical Services; Visit Provider Internal Medicine | DX: R94.31 Abnormal electrocardiogram [ECG] [EKG] (principal); R07.9 Chest pain, unspecified | CPT/HCPCS: 93010 ==

== ENCOUNTER → 2023-10-23 04:13 | Outpatient (BNV) | payer MEDICARE, MEDICAID, SELFPAY | PROVIDERS: Emergency Provider Emergency Medicine Emergency Medical Services; Visit Provider Radiology Diagnostic Radiology | DX: R51.9 Headache, unspecified (principal) | CPT/HCPCS: 70450 ==

== ENCOUNTER 2023-11-03 11:00 | Outpatient (REF) | payer MEDICARE, MEDICAID, SELFPAY | END 2023-11-03 11:01 | disposition home or self-care (01) | LOC: HO.HHCL 11:00 | PROVIDERS: Visit Provider Student in an Organized Health Care Education/Training Program | DX: Z13.89 Encounter for screening for other disorder (principal) ==

== ENCOUNTER 2023-11-04 08:42 | Outpatient (REF) | payer MEDICARE, MEDICAID, SELFPAY ==
--- NOTE | ~2023-11-04 | XR_ITS ---
EXAMINATION: XR KNEE, RIGHT XR KNEE, LEFT XR HAND, RIGHT XR HAND, LEFT XR CHEST CLINICAL INDICATION: Bilateral knee pain ongoing after fall 3 months ago. Patient had difficulty ambulating and in extreme pain and therefore best images as limited exam at this time per technologist. Episodes of dyspnea and some crackles at lung bases. Ongoing hand pain bilaterally after fall 3 months ago COMPARISON: CT chest of 10/23/2023 chest radiograph of 10/23/2023. Bilateral hands of 04/16/2020. Right knee 10/09/2019. Bilateral knees 01/20/2018. TECHNIQUE: PA and 2 lateral views of the chest. AP and lateral views of each knee. 3 views of each hand. FINDINGS: CHEST: Lung volumes are low. There is no gross pneumothorax. Cardiac silhouette is enlarged. Advanced degenerative changes in the bilateral shoulders. Degenerative changes in the thoracic spine. No gross pleural effusion. Mild left basilar opacity may represent atelectasis, although an infectious/inflammatory process could also be considered in the appropriate clinical setting. RIGHT KNEE: Diffuse demineralization. Chondrocalcinosis in the medial and lateral compartments. Moderate narrowing of the medial compartment. Small tricompartmental osteophytes. Moderate joint effusion with amorphous calcifications. Vascular calcifications. LEFT KNEE: Diffuse demineralization. Chondrocalcinosis in the medial and lateral compartments. Mild narrowing of the medial compartment. Small tricompartmental osteophytes. Moderate joint effusion calcifications. Vascular calcifications. RIGHT HAND: Diffuse demineralization. Moderate degenerative changes in the first carpometacarpal joint with joint space narrowing and hypertrophic change. Amorphous calcifications most notable adjacent to the third metacarpophalangeal joint. Degenerative changes with hypertrophic change in multiple IP and MCP joints most notable in the DIP joints. LEFT HAND: Diffuse demineralization. Moderate degenerative changes in the first carpometacarpal joint with joint space narrowing and hypertrophic change.. Amorphous calcifications most notable adjacent to the third metacarpophalangeal joint. Degenerative changes with hypertrophic change in multiple MCP and IP joints, most notable in the DIP joints. XR/XR hand LT min 3V IMPRESSION: 1. Mild left basilar opacity may represent atelectasis, although an infectious/inflammatory process could also be considered in the appropriate clinical setting. 2. Moderate degenerative changes in the bilateral knees. 3. Moderate degenerative changes in the bilateral hands. Additional imaging with CT scan or MRI should be considered for further evaluation if there is clinical concern for fracture or other underlying pathology.
[2023-11-04 08:47] LABS: MANUAL DIFF FLAG NO
[2023-11-04 08:54] LABS: Basophils Absolute Auto 0.1 X10*3/uL (0.0-0.2); Basophils Percent Auto 1.1 % (0-2); Eosinophils Absolute Auto 0.1 X10*3/uL (0.0-0.4); Eosinophils Percent Auto 2.7 % (0-4); Hematocrit 34.4 % (37.0-47.0); Hemoglobin 11.1 g/dl (12.0-16.0); Imm Gran Abs Auto 0.01 X10*3/uL (0.00-0.03); Imm Gran Pct Auto 0.2 % (0.0-0.4); Lymphocytes Absolute Auto 1.7 X10*3/uL (1.2-4.9); Lymphocytes Percent Auto 35.5 % (20-40); Mean Corpuscular HGB Conc 32.3 g/dl (31.0-35.0); Mean Corpuscular Hemoglobin 31.9 pg (27.0-33.0); Mean Corpuscular Volume 98.9 fL (80.0-98.0); Mean Platelet Volume 8.6 fL (9.4-12.3); Monocytes Absolute Auto 0.4 X10*3/uL (0.1-1.2); Monocytes Percent Auto 7.4 % (2-11); Neutrophils Absolute Auto 2.5 x10*3/uL (2.0-8.3); Neutrophils Percent Auto 53.1 % (45-73); Platelet Count 168 X10*3/uL (160-400); Red Blood Count 3.48 X10*6/uL (4.20-5.50); Red Cell Distribution Width 13.7 % (11.0-16.0); White Blood Count 4.8 X10*3/uL (4.8-10.8)
[2023-11-04 09:30] LABS: Free T4 (Free Thyroxine) 0.75 ng/dL (0.71-1.85); Thyroid Stimulating Hormone 5.21 uIU/mL (0.32-4.0)
[2023-11-04 09:45] LABS: Estimated Average Glucose 117 mg/dL; Hemoglobin A1c % 5.7 % (<6.0)
[2023-11-05 16:18] LABS: Iron 70 mcg/dL (30-160); Percent Iron Saturation 28 % (15-50); Total Iron Binding Capacity 252 mcg/dL (228-428); Unsaturated Iron Binding 182 ug/dL
[2023-11-05 16:32] LABS: Ferritin 134 ng/mL (10-250)
[2023-11-09 18:19] LABS: NT-proBNP 322 pg/mL (<450)
== END 2023-11-04 08:43 | disposition home or self-care (01) ==
LOC: HO.XRAY 08:42
PROVIDERS: PCP Student in an Organized Health Care Education/Training Program; Visit Provider Student in an Organized Health Care Education/Training Program
DX: M25.561 Pain in right knee (principal); M25.562 Pain in left knee; M79.641 Pain in right hand; M79.642 Pain in left hand; R06.02 Shortness of breath; Z13.1 Encounter for screening for diabetes mellitus; E11.9 Type 2 diabetes mellitus without complications
CPT/HCPCS: 36415; 71046; 73130; 73562; 82728; 83036; 83540; 83880; 84439; 84443; 85025

== ENCOUNTER 2023-11-19 18:02 | Inpatient (IN) | payer MEDICARE, MEDICAID, SELFPAY ==
--- NOTE | ~2023-11-19 | XR_ITS ---
EXAMINATION: CHEST 2 VIEWS CLINICAL INFORMATION: SOB. COMPARISON: 11/04/2023. TECHNIQUE: AP frontal and lateral views of the chest obtained FINDINGS: The lungs are well expanded. Chronic appearing reticular markings are seen but no superimposed focal infiltrate, effusion, edema, or pneumothorax. Cardiac and mediastinal silhouettes are within normal limits for size with a tortuous aorta. Degenerative changes in the spine and shoulders. No acute bony abnormality seen XR/XR chest 2V IMPRESSION: Chronic appearing changes but no acute superimposed airspace disease.
[2023-11-19 18:09] VITALS: BP 152/84; PULSE 108; O2SAT 99
--- NOTE | 2023-11-19 18:15 | ED_ITS ---
HPI - General Adult General Chief complaint: General Medical Stated complaint: diff breathing, leg pain Time Seen by Provider: 11/19/23 18:13 History of Present Illness ED Provider: Dr. Jacobs HPI narrative: 88 y/o F patient; PMH T2DM, HTN, hypothyroidism, HLD; presents from home reporting shortness of breath, central chest discomfort, and bilateral lower extremity knee pain. The patient states her symptoms have been ongoing since her move from [place] several months ago. Patient last seen in this emergency department on 10/23/2023 with similar complaint. At that time had x2 negative troponin and unremarkable CTA Chest. She was discharge to home after declining acute rehab placement due to a son at home with Down Syndrome. Related Data Home Medications ?Medication ?Instructions ?Recorded ?Confirmed acetaminophen 325 mg tablet 650 mg PO Q6H PRN Pain (Scale 07/15/23 07/15/23 Score 1-3) levothyroxine 75 mcg tablet 75 mcg PO DAILY 07/15/23 07/15/23 (Synthroid) metformin 500 mg tablet 500 mg PO DAILY 07/15/23 07/15/23 simvastatin 40 mg tablet 40 mg PO BEDTIME 07/15/23 07/15/23 Previous Rx's ?Medication ?Instructions ?Recorded cefuroxime axetil 500 mg tablet 500 mg PO BID #3 tabs 07/20/23 cefuroxime axetil 500 mg tablet 500 mg PO BID #13 tabs 09/20/23 Allergies Allergy/AdvReac Type Severity Reaction Status Date / Time latex [LATEX] Allergy Intermediate RASH Verified 11/19/23 18:48 Review of Systems 2 Review of Systems: Yes all other systems are reviewed and are negative PMFSH Past Medical History Attestation statement: The following information was validated with the patient. Source: old records reviewed Medical History Anxiety Depression Arthritis UTI (urinary tract infection) GERD (gastroesophageal reflux disease) Renal calculi Asthma HTN (hypertension) Elevated cholesterol Diabetes Hypothyroid Cervical spinal stenosis Surgical History Hx of hand surgery History of bladder surgery Hx of right knee surgery Hx of blepharoplasty Hx of lithotripsy Hx of cholecystectomy Hx of hysterectomy Hx of tubal ligation Hx of dilation and curettage H/O colonoscopy Social History Social History Household Members: Children Housing: House Do you presently have visiting nurse or other home services: Yes ([employer]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 Const General: cooperative Orientation/consciousness: patient oriented x3 HENMT Head: Yes atraumatic Eyes General: appearance normal, both eyes and all related structures Pupils: Equal, round and reactive pupils present EOM: EOMs intact bilaterally Neck Neck: Yes normal visual inspection, Yes full ROM, Yes supple and No tender Chest Chest palpation & inspection: normal inspection of the chest and normal palpation of entire chest wall Resp Effort & Inspection: normal respiratory effort, able to speak in complete sentences, no cough and no respiratory distress Auscultation: clear to auscultation bilaterally Cardio Rate: regular rate Rhythm: regular rhythm Peripheral pulses: Peripheral pulses 2+ throughout GI Inspection: Yes normal to inspection, No Abdominal wall edema and No distended Palpation (GI): Soft to palpation, not firm, nontender, no guarding and not rigid Auscultation: normal bowel sounds Back/Spine/Pelvis Back: No back tenderness Neuro General: patient oriented x3 Cranial nerves: Yes Equal, round and reactive pupils present Course Course Course Narrative: Patient is afebrile, mildly hypertensive. CXR unremarkable for acute abnormalities. Troponin flat at 13.1, pending 2nd troponin. Remainder of labs unremarkable. Mild baseline anemia. TSH from 11/04/2023 was 5.21 (patient has known hypothyroidism). Long discussion had with patient about recurrent visits for similar complaints and need for specialist follow up with PCP and likely cycle manager. Patient voiced understanding. Continues to decline rehab placement. Given this is patient's 4th visit since Jun 2023, and she lacks out-patient follow up, discussed possibility of admission with hospitalist for chest pain and shortness of breath evaluation. Plan: Admit to hospitalist Condition: Stable Medical Decision Making Lab Data 11/19/23 19:23 11/19/23 19:23 Labs: Lab Results 11/19/23 Range/Units 19:23 WBC 5.4 (4.8-10.8) X10*3/uL RBC 3.28 L (4.20-5.50) X10*6/uL Hgb 10.4 L (12.0-16.0) g/dl Hct 31.9 L (37.0-47.0) % MCV 97.3 (80.0-98.0) fL MCH 31.7 (27.0-33.0) pg MCHC 32.6 (31.0-35.0) g/dl RDW 13.2 (11.0-16.0) % Plt Count 155 L (160-400) X10*3/uL MPV 8.7 L (9.4-12.3) fL Immature Gran % (Auto) 0.4 (0.0-0.4) % Neut % (Auto) 67.8 (45-73) % Lymph % (Auto) 19.2 L (20-40) % [place] % (Auto) 10.5 (2-11) % Eos % (Auto) 1.5 (0-4) % Baso % (Auto) 0.6 (0-2) % Lymph # (Auto) 1.0 L (1.2-4.9) X10*3/uL [place] # (Auto) 0.6 (0.1-1.2) X10*3/uL Eos # (Auto) 0.1 (0.0-0.4) X10*3/uL Baso # (Auto) 0.0 (0.0-0.2) X10*3/uL Abs Immat Gran (auto) 0.02 (0.00-0.03) X10*3/uL Absolute Neuts (auto) 3.7 (2.0-8.3) x10*3/uL Absolute Nucleated RBC 0.000 (0.0-0.012) X10*3/uL Nucleated RBC % (auto) 0.0 (0.0-0.2) /100WBC Sodium 141 (135-145) mmol/L Potassium 4.8 (3.3-5.1) mmol/L Chloride 110 H (96-108) mmol/L Carbon Dioxide 23 (22-29) mmol/L Anion Gap 13 (12-20) BUN 20 H (9-16) mg/dL Creatinine 1.34 (0.5-1.4) mg/dL Estim Creat Clear Calc 32.2 Estimated GFR 38 Random Glucose 128 H (60-115) mg/dL Calcium 8.9 (8.4-10.2) mg/dL Total Bilirubin 0.8 (0.0-1.0) mg/dL Direct Bilirubin 0.3 (0.0-0.5) mg/dL AST 12 (5-31) U/L ALT < 5 (0-31) U/L Alkaline Phosphatase 81 (39-117) U/L Troponin I High Sens 13.1 (<3.5-17.0) ng/L Total Protein 7.2 (6.5-8.0) g/dL Albumin 3.8 (3.5-5.0) g/dL Lipase 33 (8-78) U/L Independent Interpretation I performed an independent interpretation of an: EKG Interpretation: NSR 90BPM without ischemic changes, unchanged compared to 10/23/2023. Discharge Plan Discharge Clinical Impression: Breath shortness, Chronic pain of both knees, Chest pain Patient Disposition: Admitted As Inpatient Instructions: Knee Pain (ED), Shortness of Breath (ED) Additional Instructions: Prescriptions: No Action metformin 500 mg tablet 500 mg PO DAILY simvastatin 40 mg tablet 40 mg PO BEDTIME levothyroxine [Synthroid] 75 mcg tablet 75 mcg PO DAILY acetaminophen 325 mg Tablet 650 mg PO Q6H PRN (Reason: Pain (Scale Score 1-3)) cefuroxime axetil 500 mg tablet 500 mg PO BID Qty: 3 0RF cefuroxime axetil 500 mg tablet 500 mg PO BID Qty: 13 0RF Print Language: Uruguayan
--- NOTE | 2023-11-19 18:46 | ECG_ITS ---
Test Reason : SOB Blood Pressure : / mmHG Vent. Rate : 090 BPM Atrial Rate : 090 BPM P-R Int : 172 ms QRS Dur : 076 ms QT Int : 370 ms P-R-T Axes : 061 029 029 degrees QTc Int : 452 ms Normal sinus rhythm Normal ECG When compared with ECG of 23-OCT-2023 03:22, No significant change was found Referred By: Kerrie Jacobs Electronically Signed By:JOSE MICHELLE MD
[2023-11-19 18:48] VITALS: BMI 30.9
[2023-11-19 18:49] VITALS: BP 156/71; PULSE 89; RESP 20; TEMP 37.1; O2SAT 100
[2023-11-19 19:28] LABS: MANUAL DIFF FLAG NO
[2023-11-19 19:30] LABS: Basophils Percent Auto 0.6 % (0-2); Eosinophils Absolute Auto 0.1 X10*3/uL (0.0-0.4); Eosinophils Percent Auto 1.5 % (0-4); Hematocrit 31.9 % (37.0-47.0); Hemoglobin 10.4 g/dl (12.0-16.0); Imm Gran Abs Auto 0.02 X10*3/uL (0.00-0.03); Imm Gran Pct Auto 0.4 % (0.0-0.4); Lymphocytes Percent Auto 19.2 % (20-40); Mean Corpuscular HGB Conc 32.6 g/dl (31.0-35.0); Mean Corpuscular Hemoglobin 31.7 pg (27.0-33.0); Mean Corpuscular Volume 97.3 fL (80.0-98.0); Mean Platelet Volume 8.7 fL (9.4-12.3); Monocytes Absolute Auto 0.6 X10*3/uL (0.1-1.2); Monocytes Percent Auto 10.5 % (2-11); Neutrophils Absolute Auto 3.7 x10*3/uL (2.0-8.3); Neutrophils Percent Auto 67.8 % (45-73); Platelet Count 155 X10*3/uL (160-400); Red Blood Count 3.28 X10*6/uL (4.20-5.50); Red Cell Distribution Width 13.2 % (11.0-16.0); White Blood Count 5.4 X10*3/uL (4.8-10.8)
[2023-11-19 19:55] LABS: Alanine Aminotransferase < 5 U/L (0-31); Albumin Level 3.8 g/dL (3.5-5.0); Alkaline Phosphatase 81 U/L (39-117); Anion Gap 13 (12-20); Aspartate Amino Transferase 12 U/L (5-31); Bilirubin Direct 0.3 mg/dL (0.0-0.5); Bilirubin Total 0.8 mg/dL (0.0-1.0); Blood Urea Nitrogen 20 mg/dL (9-16); Calcium 8.9 mg/dL (8.4-10.2); Carbon Dioxide 23 mmol/L (22-29); Chloride 110 mmol/L (96-108); Creatinine Clr Calc Pharmacy 32.2; Estimated Glomerular Filt Rate 38; Glucose Random 128 mg/dL (60-115); Lipase 33 U/L (8-78); Potassium 4.8 mmol/L (3.3-5.1); Sodium 141 mmol/L (135-145); Total Protein 7.2 g/dL (6.5-8.0)
[2023-11-19 20:00] LABS: Troponin-I High Sensitivity 13.1 ng/L (<3.5-17.0)
[2023-11-19 20:34] VITALS: BP 128/65; PULSE 94; RESP 14; TEMP 37.4; O2SAT 98
--- NOTE | 2023-11-19 21:18 | P.HPHOSP_ITS ---
History of Present Illness Date of Service: 11/19/23 <LAURA Everett - Last Filed: 11/20/23 00:15> Attending physician on admission: Saida Aviles <LAURA Everett - Last Filed: 11/20/23 00:15> Chief Complaint: SOB, knee pain <LAURA Everett - Last Filed: 11/20/23 00:15> Pt is an 88-year-old female with a PMH significant for?HTN, HLD, hypothyroidism, shz-ejqwvkm-tmrhjfomg type 2 diabetes, and spinal stenosis who presents to the ED with?tingling and weakness of upper and lower extremities bilaterally. Patient has been experiencing symptoms after suffering a mechanical fall while still in [place] approximately 5 months ago. 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 Was seen and evaluated by Physical therapy at that time who recommended short term rehab, however patient did not have health insurance and was unwilling to both pay [id number] and be away from her son who has Down syndrome and whom she needs to take care of. The patient has since presented with similar symptoms on 09/19 and again on 10/22 when she likewise complained of shortness of breath. Workup on 10/22 included CTA of chest negative for pulmonary embolism and negative serial troponins. Patient was again offered short-term rehab which she refused. On 09/23 patient followed up with Dr. Bethea in Neurosurgery, who offered the patient a C3-4, C4-5 ACDF to address her cervical myelopathy. Goal of surgery was 2 Holter progression of her symptoms and not to ameliorate her current establish symptoms which are likely permanent and a result of prolonged spinal cord compression. Patient has not yet undergone surgical intervention. Patient presents to the emergency room today due to continued upper and lower extremity numbness, tingling, and weakness which appears around baseline. Patient also complains of shoulder pain which she has also been experiencing since her mechanical fall in [place] sometime at the beginning of this year. Also reports one brief episode of shortness of breath earlier today that has since resolved, and some chest pain especially noticeable when she moves or twists her torso. States she has not been eating or drinking much lately. Denies fever, chills, nausea, vomiting, abdominal pain. In the ED pt was hypertensive up to 156/71 and had elevated heart rate of 94. Labs were significant for elevated creatinine of 1.34, up from 0.94 on 10/23/2023, otherwise grossly unremarkable and around baseline for patient. No leukocytosis. Stable normocytic anemia of 10.4/31.9. No significant electrolyte abnormalities. Hepatic function around baseline. Initial troponin 13.1. CXR showed chronic appearing changes but no acute superimposed airspace disease. EKG demonstrated normal sinus rhythm without evidence of significant ischemic changes. Pt will be admitted to the hospital for treatment further evaluation of generalized weakness in the setting of WADE. <LAURA Everett - Last Filed: 11/20/23 00:15> Review of Systems 2 Review of Systems: Negative except for that stated in the HPI <LAURA Everett - Last Filed: 11/20/23 00:15> [facility] Medical History: Medical History Anxiety Depression Arthritis UTI (urinary tract infection) GERD (gastroesophageal reflux disease) Renal calculi Asthma HTN (hypertension) Elevated cholesterol Diabetes Hypothyroid Cervical spinal stenosis <LAURA Everett - Last Filed: 11/20/23 00:15> Surgical History: Surgical History Hx of hand surgery History of bladder surgery Hx of right knee surgery Hx of blepharoplasty Hx of lithotripsy Hx of cholecystectomy Hx of hysterectomy Hx of tubal ligation Hx of dilation and curettage H/O colonoscopy <LAURA Everett - Last Filed: 11/20/23 00:15> Social History: Social History Household Members: Children Housing: House Do you presently have visiting nurse or other home services: Yes (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[place]) Patient Tobacco Use Status: Never used Tobacco Advance Directives: Yes Advance Directives on File: Yes Advance Directives Date on File: 07/21/23 service: No <LAURA Everett - Last Filed: 11/20/23 00:15> Meds Allergies/Adverse reactions: Allergies Allergy/AdvReac Type Severity Reaction Status Date / Time latex [LATEX] Allergy Intermediate RASH Verified 11/19/23 18:48 <LAURA Everett - Last Filed: 11/20/23 00:15> Home medications: Home Medications ?Medication ?Instructions ?Recorded ?Confirmed ?Last Taken ?Type acetaminophen 325 mg tablet 650 mg PO Q6H PRN Pain (Scale 07/15/23 11/19/23 11/19/23 08:00 History Score 1-3) levothyroxine 75 mcg tablet 75 mcg PO DAILY 07/15/23 11/19/23 11/19/23 08:00 History (Synthroid) metformin 500 mg tablet 500 mg PO DAILY 07/15/23 11/19/23 11/19/23 08:00 History simvastatin 40 mg tablet 40 mg PO BEDTIME 07/15/23 07/15/23 Unknown History albuterol sulfate 90 mcg/actuation 2 puff inhalation Q6H PRN wheezing 11/19/23 11/19/23 11/19/23 08:00 History aerosol inhaler (Ventolin HFA) aspirin 81 mg chewable tablet 1 tab PO DAILY 11/19/23 11/19/23 11/19/23 08:00 History calcium carbonate 600 mg-vitamin 1 tab PO DAILY 11/19/23 11/19/23 11/19/23 08:00 History D3 20 mcg (800 unit) tablet enalapril maleate 10 mg tablet 10 mg PO DAILY 11/19/23 11/19/23 11/19/23 08:00 History oxybutynin chloride 5 mg 5 mg PO DAILY 11/19/23 11/19/23 11/19/23 08:00 History tablet,extended release 24 hr trazodone 50 mg tablet 25 mg PO BEDTIME 11/19/23 11/19/23 11/18/23 20:00 History <LAURA Everett - Last Filed: 11/20/23 00:15> Physical Exam 2 Vital Signs and Narrative: Vital Signs: Last Vital Signs Temp 99.3 F 11/19/23 20:34 Pulse 94 11/19/23 20:34 Resp 14 11/19/23 20:34 BP 128/65 11/19/23 20:34 Pulse Ox 98 11/19/23 20:34 O2 Del Method Room Air 11/19/23 20:34 BMI result Body Mass Index 30.9 <LAURA Everett - Last Filed: 11/20/23 00:15> Constitutional: Alert, in no acute distress. Mental Status: Oriented to person, place and time. Eyes: Pupils are equal, round, and reactive to light. Ear, Nose, and Throat: Oropharynx clear, mucous membranes moist. Ears and nose without deformities. Trachea midline. Respiratory: Clear to auscultation bilaterally. No wheezing, rales, or rhonchi. Cardiovascular: S1, S2 regular. No murmurs, rubs, or gallops. Chest: Anterior chest wall tenderness to palpation Gastrointestinal: Abdomen soft, non-tender, non-distended. Normal bowel sounds. Neurologic: Cranial nerves II-XII are grossly intact bilaterally. No focal neurological deficits. Moves all extremities spontaneously. Diminished sensation to light touch to upper and lower extremities bilaterally. 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 Globalized weakness. Skin: Warm, dry. Extremities: Mild non-pitting edema. Psychiatric: Normal mood and affect. <LAURA Everett - Last Filed: 11/20/23 00:15> Results Labs CBC and Chem 7: 11/19/23 19:23 11/19/23 19:23 <LAURA Everett - Last Filed: 11/20/23 00:15> Labs: Laboratory Results - last 24 hr 11/19/23 19:23 MCV 97.3 MCH 31.7 MCHC 32.6 RDW 13.2 Plt Count 155 L MPV 8.7 L Immature Gran % (Auto) 0.4 Neut % (Auto) 67.8 Lymph % (Auto) 19.[address] [place] % (Auto) 10.5 Eos % (Auto) 1.5 Baso % (Auto) 0.6 Lymph # (Auto) 1.[address] [place] # (Auto) 0.6 Eos # (Auto) 0.1 Baso # (Auto) 0.0 Abs Immat Gran (auto) 0.02 Absolute Neuts (auto) 3.7 Absolute Nucleated RBC 0.000 Nucleated RBC % (auto) 0.0 Anion Gap 13 Estim Creat Clear Calc 32.2 Estimated GFR 38 Random Glucose 128 H Calcium 8.9 Total Bilirubin 0.8 Direct Bilirubin 0.3 AST 12 ALT < 5 Alkaline Phosphatase 81 Troponin I High Sens 13.1 Total Protein 7.2 Albumin 3.8 Lipase 33 <LAURA Everett - Last Filed: 11/20/23 00:15> Imaging Radiologist's Impressions: Impressions Chest X-Ray 11/19/23 19:17 IMPRESSION: Chronic appearing changes but no acute superimposed airspace disease. <LAURA Everett - Last Filed: 11/20/23 00:15> Assessment and Plan (1) WADE (acute kidney injury): Status: Acute <LAURA Everett - Last Filed: 11/20/23 00:15> Pt is an 88-year-old female with a PMH significant for?HTN, HLD, hypothyroidism, viw-genpwri-sbieayool type 2 diabetes, and spinal stenosis who presents to the ED with?tingling and weakness of upper and lower extremities bilaterally. Pt will be admitted to the hospital for treatment further evaluation of generalized weakness in the setting of WADE. WADE Patient's creatinine 1.34, up from 0.94 on 10/23/2023 Likely secondary to dehydration from reduced p.o. intake Will give 1 L IVF Follow BNP Generalized weakness with numbness and tingling in extremities In the setting of cervical myelopathy Patient complaining of bilateral upper and lower extremity tingling and weakness Has been on going for past 5+ months after mechanical fall in [place] MRI in June showed moderate to advanced multilevel degenerative spinal arthropathy Patient declined STR at that time Has followed up with Neurosurgery who suggest anterior cervical diskectomy and fusion Will check vitamin-D, B12, and folate levels PT consult Pt will need to follow up with neurosurgery for surgical treatment Elevated troponins Initial troponin 13.1 with repeat mildly elevated at 18.1 Patient with reproducible anterior chest wall tenderness with palpation EKG without significant ischemic changes Likely type 2 in the setting of increased demand Will monitor on telemetry SOB Pt with intermittent SOB, one brief episode earlier today Now back to baseline, satting at 99% on RA Lungs CTA, no cough, CXR negative for acute disease Continue home inhaler HTN BP a bit soft, hold antihypertensives for now Resume as indicated Non-insulin dependent type 2 diabetes melitus Hold metformin Place on SSI, diabetic diet Hypothyroidism Continue levothyroxine Full Code Attending:?Dr. Rose DVT Prophylaxis: Heparin Pt will require a hospitalization of at least two nights for treatment of?generalized weakness in the setting of WADE. Patient require administration of IVF, close monitoring of labs, and specialist consultation with Physical therapy. <LAURA Everett - Last Filed: 11/20/23 00:15> Pt is an 88-year-old female with a PMH significant for?HTN, HLD, hypothyroidism, hud-bwmjfli-psrnlomfl type 2 diabetes, and spinal stenosis who presents to the ED with?tingling and weakness of upper and lower extremities bilaterally. Pt will be admitted to the hospital for treatment further evaluation of generalized weakness in the setting of WADE. WADE Patient's creatinine 1.34, up from 0.94 on 10/23/2023 Likely secondary to dehydration from reduced p.o. intake Will give 1 L IVF Follow BNP Generalized weakness with numbness and tingling in extremities In the setting of cervical myelopathy Patient complaining of bilateral upper and lower extremity tingling and weakness Has been on going for past 5+ months after mechanical fall in [place] MRI in June showed moderate to advanced multilevel degenerative spinal arthropathy Patient declined STR at that time Has followed up with Neurosurgery who suggest anterior cervical diskectomy and fusion Will check vitamin-D, B12, and folate levels PT consult Pt will need to follow up with neurosurgery for surgical treatment Elevated troponins Initial troponin 13.1 with repeat mildly elevated at 18.1 Patient with reproducible anterior chest wall tenderness with palpation EKG without significant ischemic changes Likely type 2 in the setting of increased demand Will monitor on telemetry SOB Pt with intermittent SOB, one brief episode earlier today Now back to baseline, satting at 99% on RA Lungs CTA, no cough, CXR negative for acute disease Continue home inhaler HTN BP a bit soft, hold antihypertensives for now Resume as indicated Non-insulin dependent type 2 diabetes melitus Hold metformin [address] on SSI, diabetic diet Hypothyroidism Continue levothyroxine 11/20/2023 - 4:52 AM: Pt started to develop fever 100.8. CXR reviewed - negative for acute findings -will check UA, Blood cultures and viral testing -covid, flu and rsv. Full Code Attending:?Dr. Rose DVT Prophylaxis: Heparin Pt will require a hospitalization of at least two nights for treatment of?generalized weakness in the setting of WADE. Patient require administration of IVF, close monitoring of labs, and specialist consultation with Physical therapy. <Saida Aviles MD - Last Filed: 11/20/23 04:59> Quality Stroke Does the patient have a stroke diagnosis?: No <LAURA Everett - Last Filed: 11/20/23 00:15> VTE Prior VTE?: No <LAURA Everett - Last Filed: 11/20/23 00:15> VTE Risk Level:: Medical - moderate - high <LAURA Everett - Last Filed: 11/20/23 00:15> VTE Device Contraindication: Treatment Not Indicated <LAURA Everett - Last Filed: 11/20/23 00:15> VTE Drug Contraindication: N/A - Med Ordered <LAURA Everett - Last Filed: 11/20/23 00:15>
[2023-11-19 22:05] LABS: Troponin-I High Sensitivity 18.1 ng/L (<3.5-17.0)
[2023-11-19 22:20] VITALS: BP 121/55; PULSE 86; RESP 20; TEMP 37.1; O2SAT 99
--- NOTE | 2023-11-19 22:20 | PHA.MEDREC ---
Addendum entered by Fabricio Keller 11/19/23 22:23: Patient states she is receiving Simvastatin 40mg by the hospital. When I got back to the pharmacy I was informed we do not currently have Simvastatin 40mg in out inventory, left unconfirmed in list for further DR action. Original Note: Pharmacy Consult ? Medication Reconciliation Pharmacy has completed the medication reconciliation. Confirmed medications with help of milk sampler. We were able to confirm her meds with patient.
[2023-11-19 22:29] LABS: B Type Natriuretic Peptide 102 pg/mL (<100)
[2023-11-19] MEDS: traZODone HCL 25 MG HALFTAB PO (23:34)
[2023-11-19] MEDS: Heparin Sodium,Porcine 5,000 UNIT/ML VIAL 5000 UNIT SUBCUT (23:34)
[2023-11-19] MEDS: 0.9 % Sodium Chloride 1,000 ML 999 ML IV (23:35)
[2023-11-20] VITALS (7 sets, daily range): BP systolic 120–165; BP diastolic 60–85; PULSE 90–107; RESP 17–20; TEMP 36.4–38.2; O2SAT 96–99; BMI 30.8
--- NOTE | 2023-11-20 01:31 | PC.NURSE ---
Pt macedonian speaking. Comes in with SOB, bilateral knee pain and CP that has been ongoing for months since her move back from [place]. Was seen 10/22 , cleared medically but STR recommended. Pt declined due to living with her son who is down syndrome. Pt will be admitted for SOB sating 98 RA. and CP. Trop 13. Diabetic diet, HTN, HLD. IV 20RAC. pt evaluation in am
--- NOTE | 2023-11-20 01:57 | PC.NURSE ---
Pt is an 88-year-old female with a PMH significant for?HTN, HLD, hypothyroidism, keu-wwwzrtr-lvjccwufz type 2 diabetes, and spinal stenosis who presents to the ED with?tingling and weakness of upper and lower extremities bilaterally. Pt will be admitted to the hospital for treatment further evaluation of generalized weakness in the setting of WADE. WADE Patient's creatinine 1.34, up from 0.94 on 10/23/2023 Likely secondary to dehydration from reduced p.o. intake Will give 1 L IVF Follow BNP Generalized weakness with numbness and tingling in extremities In the setting of cervical myelopathy Patient complaining of bilateral upper and lower extremity tingling and weakness Has been on going for past 5+ months after mechanical fall in [place] MRI in June showed moderate to advanced multilevel degenerative spinal arthropathy Patient declined STR at that time Has followed up with Neurosurgery who suggest anterior cervical diskectomy and fusion Will check vitamin-D, B12, and folate levels PT consult Pt will need to follow up with neurosurgery for surgical treatment
[2023-11-20] MEDS: Acetaminophen 325 MG TABLET 650 MG PO ×3 (04:56→21:53)
[2023-11-20 05:29] LABS: Appearance Urine Turbid; Color Urine Yellow; Glucose Urine UA Negative (Negative); Leukocyte Esterase Urine Large (3+) (Negative); Nitrite Urine Positive (Negative); Specific Gravity - Urine 1.015 (1.005-1.025); UMIC TRIGGER UACC YES; Urine Blood Small (1+) (Negative); Urine Ketones Negative (Negative); Urine Protein 100 (2+) mg/dL (Neg-Trace)
[2023-11-20 05:42] LABS: Bacteria Urine 4+ (None Seen); Hyaline Casts Urine 0-2 /LPF (0-2); RBC Urine 0-2 /HPF (0-2); Squamous Epithelial Cell Urine 0-2 /HPF (0-2); UACC Culture Trigger YES; WBC Urine >50 /HPF (0-5)
--- NOTE | 2023-11-20 05:49 | PC.NURSE ---
Tajik speaking a/ox4 , lives home with son presenting with weakness bilateral extremity upper and lower and mild CP ( Trop 13/18). bnp 102 IV access : 20 RAC PMH significant for?HTN, HLD, hypothyroidism, ehi-cjznacn-myzoohatz type 2 diabetes, and spinal stenosis who presents to the ED Pt will be admitted to the hospital for treatment further evaluation of generalized weakness in the setting of WADE. Admit: weakness WADE Patient's creatinine 1.34, up from 0.94 on 10/23/2023 Likely secondary to dehydration from reduced p.o. intake Will give 1 L IVF Follow BNP Generalized weakness with numbness and tingling in extremities In the setting of cervical myelopathy Patient complaining of bilateral upper and lower extremity tingling and weakness Has been on going for past 5+ months after mechanical fall in [place] MRI in June showed moderate to advanced multilevel degenerative spinal arthropathy Patient declined STR at that time Has followed up with Neurosurgery who suggest anterior cervical diskectomy and fusion Will check vitamin-D, B12, and folate levels PT consult Pt will need to follow up with neurosurgery for surgical treatment Pt had temp 100 @0500, Dr. Rose aware and ordered cultures UA and swab ( positive UTI)
[2023-11-20 06:05] LABS: Influenza A PCR NEGATIVE (Negative); Influenza B PCR NEGATIVE (Negative); Resp Syncy Virus RNA Qual PCR NEGATIVE (Negative); SARS COV2 PCR INHOUSE NEGATIVE (Negative)
[2023-11-20] MEDS: Levothyroxine Sodium 75 MCG TABLET PO (06:08)
[2023-11-20] MEDS: cefTRIAXone sodium 1 GM in 0.9 % Sodium Chloride 50 ML IV (06:08)
[2023-11-20 06:20] LABS: Anion Gap 14 (12-20); Blood Urea Nitrogen 18 mg/dL (9-16); Calcium 9.2 mg/dL (8.4-10.2); Carbon Dioxide 21 mmol/L (22-29); Chloride 111 mmol/L (96-108); Creatinine Clr Calc Pharmacy 35.7; Estimated Glomerular Filt Rate 42; Glucose Random 91 mg/dL (60-115); Potassium 4.4 mmol/L (3.3-5.1); Sodium 142 mmol/L (135-145)
--- NOTE | 2023-11-20 07:01 | PC.NURSE ---
report received from previous RN, patient resting comfortably on stretcher at this time, offering no complaints, remains on director cardiac at this time. awaiting inpatient bed upstairs. all safety maintained.
[2023-11-20] MEDS: 0.9 % Sodium Chloride Flush 3 ML SYRINGE IVFLUSH ×3 (07:16→21:51)
[2023-11-20 07:19] LABS: Folate 8.3 ng/mL (> or = 4.0); Vitamin B12 347 pg/mL (200-900)
--- NOTE | 2023-11-20 07:35 | PC.NURSE ---
report given to floor for patient
[2023-11-20] MEDS: Aspirin 81 MG TAB.CHEW PO (09:39)
[2023-11-20] MEDS: oxyBUTYnin chloride ER 5 MG TAB.ER.24 PO (09:39)
[2023-11-20] MEDS: Calcium + Vitamin D 250 MG TABLET PO (09:39)
[2023-11-20] MEDS: Heparin Sodium,Porcine 5,000 UNIT/ML VIAL 5000 UNIT SUBCUT (11:38)
--- NOTE | 2023-11-20 13:17 | HO.PM.IMPN ---
Subjective Subjective Date of Service: 11/20/23 Interval History: seen and evaluated reports pain in upper and lower extremitites Cr at 1.3 Review of Systems Review of Systems: Yes all other systems are reviewed and are negative Physical Exam Vital Signs: Vital Signs: Last Vital Signs Temp 97.6 F 11/20/23 11:44 Pulse 96 11/20/23 11:44 Resp 18 11/20/23 11:44 BP 151/70 H 11/20/23 11:44 Pulse Ox 98 11/20/23 11:44 O2 Del Method Room Air 11/20/23 11:44 BMI result Body Mass Index 30.8 Const: Other: Constitutional : interactive, not in distress Cardiovascular : no JVP, no lower extremity edema Respiratory : bilateral chest movement, not in resp distress Gastrointestinal: soft, lax, Non tender Skin : Warm, Dry Neurological : Alert & oriented , No focal deficit Objective Data Active Medications Acetaminophen (Acetaminophen 325 Mg Tablet) 650 mg PO Q6H PRN PRN Reason: Pain, Mild (Pain Scale 1-3), fever or headache Last Admin: 11/20/23 04:56 Dose: 650 mg Documented By: STEPHANIE Albuterol Sulfate (Albuterol Sulfate 90 Mcg 8 Gm Inhaler) 2 puff INHALE Q6H PRN PRN Reason: wheezing Aspirin (Aspirin 81 Mg Tab.Chew) 81 mg PO DAILY [facility] Last Admin: 11/20/23 09:39 Dose: 81 mg Documented By: AMALIA Benzonatate (Benzonatate 100 Mg Capsule) 100 mg PO TID PRN PRN Reason: Cough Calcium Carbonate (Calcium Carbonate 750 Mg Tab.Chew) 750 mg PO Q4H PRN PRN Reason: Heartburn Calcium Carbonate/Cholecalciferol (Calcium + Vitamin D 250 Mg Tablet) 1 mg PO DAILY [facility] Last Admin: 11/20/23 09:39 Dose: 1 mg Documented By: AMALIA Heparin Sodium (Porcine) (Heparin Sodium,Porcine 5,000 Unit/Ml Vial) 5,000 unit SUBCUT Q12H [facility] Last Admin: 11/20/23 11:38 Dose: 5,000 unit Documented By: AMALIA Ceftriaxone Sodium 1 gm/ (Sodium Chloride) 50 mls @ 100 mls/hr IV Q24H [facility] Last Infusion: 11/20/23 06:42 Dose: Infused Documented By: STEPHANIE Levothyroxine Sodium (Levothyroxine Sodium 75 Mcg Tablet) 75 mcg PO DAILY@0630 [facility] Last Admin: 11/20/23 06:08 Dose: 75 mcg Documented By: STEPHANIE Melatonin (Melatonin 3 Mg Tablet) 6 mg PO BEDTIME PRN PRN Reason: Insomnia Ondansetron HCl (Ondansetron Hcl 4 Mg/2 Ml Vial) 4 mg IVPUSH Q8H PRN PRN Reason: Nausea and Vomiting Oxybutynin Chloride (Oxybutynin Chloride Er 5 Mg Tab.Er.24) 5 mg PO DAILY [facility] Last Admin: 11/20/23 09:39 Dose: 5 mg Documented By: AMALIA Polyethylene Glycol (Polyethylene Glycol 3350 17 Gm Powd.Pack) 17 gm PO DAILY PRN PRN Reason: Constipation Sodium Chloride (0.9 % Sodium Chloride Flush 3 Ml Syringe) 3 ml IVFLUSH QSHIFT [facility] Last Admin: 11/20/23 07:16 Dose: 3 ml Documented By: ERICA Trazodone HCl (Trazodone Hcl 25 Mg Halftab) 25 mg PO BEDTIME [facility] Last Admin: 11/19/23 23:34 Dose: 25 mg Documented By: STEPHANIE Labs 11/19/23 19:23 11/20/23 05:42 Labs: Laboratory Results - last 24 hr 11/19/23 11/19/23 11/20/23 19:23 21:37 05:19 MCV 97.3 MCH 31.7 MCHC 32.6 RDW 13.2 Plt Count 155 L MPV 8.7 L Immature Gran % (Auto) 0.4 Neut % (Auto) 67.8 Lymph % (Auto) 19.2 L [place] % (Auto) 10.5 Eos % (Auto) 1.5 Baso % (Auto) 0.6 Lymph # (Auto) 1.0 L [place] # (Auto) 0.6 Eos # (Auto) 0.1 Baso # (Auto) 0.0 Abs Immat Gran (auto) 0.02 Absolute Neuts (auto) 3.7 Absolute Nucleated RBC 0.000 Nucleated RBC % (auto) 0.0 Anion Gap 13 Estim Creat Clear Calc 32.2 Estimated GFR 38 Random Glucose 128 H Calcium 8.9 Total Bilirubin 0.8 Direct Bilirubin 0.3 AST 12 ALT < 5 Alkaline Phosphatase 81 Troponin I High Sens 13.1 18.1 H B-Natriuretic Peptide 102 H Total Protein 7.2 Albumin 3.8 Lipase 33 Vitamin B12 25-OH Vitamin D Total Folate Urine Color Yellow Urine Appearance Turbid Urine pH 8.0 Ur Specific [place] 1.015 Urine Protein 100 (2+) H Urine Glucose (UA) Negative Urine Ketones Negative Urine Blood Small (1+) H Urine Nitrite Positive H Ur Leukocyte Esterase Large (3+) H Urine RBC 0-2 Urine WBC >50 H Ur Squamous Epith Cells 0-2 Urine Bacteria 4+ Hyaline Casts 0-2 Influenza Type A (PCR) NEGATIVE Influenza Type B (PCR) NEGATIVE RSV RNA Qual (PCR) NEGATIVE SARS-CoV-2 RNA (RT-PCR) NEGATIVE 11/20/23 05:42 MCV MCH MCHC RDW Plt Count MPV Immature Gran % (Auto) Neut % (Auto) Lymph % (Auto) [place] % (Auto) Eos % (Auto) Baso % (Auto) Lymph # (Auto) [place] # (Auto) Eos # (Auto) Baso # (Auto) Abs Immat Gran (auto) Absolute Neuts (auto) Absolute Nucleated RBC Nucleated RBC % (auto) Anion Gap 14 Estim Creat Clear Calc 35.7 Estimated GFR 42 Random Glucose 91 Calcium 9.2 Total Bilirubin Direct Bilirubin AST ALT Alkaline Phosphatase Troponin I High Sens B-Natriuretic Peptide Total Protein Albumin Lipase Vitamin B12 347 25-OH Vitamin D Total 27.0 L Folate 8.3 Urine Color Urine Appearance Urine pH Ur Specific [place] Urine Protein Urine Glucose (UA) Urine Ketones Urine Blood Urine Nitrite Ur Leukocyte Esterase Urine RBC Urine WBC Ur Squamous Epith Cells Urine Bacteria Hyaline Casts Influenza Type A (PCR) Influenza Type B (PCR) RSV RNA Qual (PCR) SARS-CoV-2 RNA (RT-PCR) Assessment and Plan (1) WADE (acute kidney injury): Status: Acute (2) Physical deconditioning: Status: Acute Plan Pt is an 88-year-old female with a PMH significant for?HTN, HLD, hypothyroidism, [id number] type 2 diabetes, and spinal stenosis who presents to the ED with?tingling and weakness of upper and lower extremities bilaterally. Pt will be admitted to the hospital for treatment further evaluation of generalized weakness in the setting of WADE. WADE on CKD3 likely prerenal from decrease PO Cr better at 1.2 this morning follow BMP encourage PO intake and avoid nephrotoxins Fever one time reading of 100.8 CXR, UA, viral panel negative monitor cultures Physical deconditioning PT evaluation chronic Numbness and tingling in extremities 2/2 chronic cervical myelopathy followed up with Neurosurgery who suggest anterior cervical diskectomy and fusion She will need to follow up with neurosurgery for surgical treatment Elevated troponins Trended negative EKG without significant ischemic changes in setting of CKD HTN restart home meds when appropriate Non-insulin dependent type 2 diabetes melitus Hold metformin SSI, diabetic diet Hypothyroidism Continue levothyroxine 11/20/2023 - 4:52 AM: Pt started to develop fever 100.8. CXR reviewed - negative for acute findings -will check UA, Blood cultures and viral testing -covid, flu and rsv. Full Code Attending:?Dr. Rose DVT Prophylaxis: Heparin Pt will require a hospitalization of at least two nights for treatment of?generalized weakness in the setting of WADE. Patient require administration of IVF, close monitoring of labs, and specialist consultation with Physical therapy. Quality Stroke Does the patient have a stroke diagnosis?: No VTE Prior VTE?: No VTE Risk Level:: Medical - moderate - high VTE Device Contraindication: Treatment Not Indicated VTE Drug Contraindication: N/A - Med Ordered
--- NOTE | 2023-11-20 15:59 | MHC.CM.PN ---
IMM 11/19. This CM met with pt with the assistance of a security manager. Pt reports she is self-care, and is living at home with her son Troy. Pt states she has an appointment with a PCP at [facility] on November 25, but does not know the name. Pts son will transport her home at discharge. HCP on file and verified.
[2023-11-20] MEDS: traZODone HCL 25 MG HALFTAB PO (21:51)
[2023-11-21] VITALS: BP 119/80; PULSE 105; RESP 18; TEMP 37.4; O2SAT 96
[2023-11-21] MEDS: Heparin Sodium,Porcine 5,000 UNIT/ML VIAL 5000 UNIT SUBCUT ×3 (00:15→23:24)
[2023-11-21 03:51] VITALS: BP 119/55; PULSE 82; RESP 17; TEMP 37.1; O2SAT 98
[2023-11-21] MEDS: cefTRIAXone sodium 1 GM in 0.9 % Sodium Chloride 50 ML IV (05:59)
[2023-11-21] MEDS: Levothyroxine Sodium 75 MCG TABLET PO (05:59)
--- NOTE | 2023-11-21 07:03 | HO.SKINPHOTO ---
Location:coccyx Category:pressure Stage:stage 2 Length: Width: Depth: cm
[2023-11-21 07:06] LABS: Anion Gap 13 (12-20); Blood Urea Nitrogen 19 mg/dL (9-16); Calcium 9.1 mg/dL (8.4-10.2); Carbon Dioxide 22 mmol/L (22-29); Chloride 110 mmol/L (96-108); Creatinine Clr Calc Pharmacy 35.4; Estimated Glomerular Filt Rate 42; Glucose Random 90 mg/dL (60-115); Sodium 141 mmol/L (135-145)
[2023-11-21 07:31] VITALS: BP 126/60; PULSE 72; RESP 18; TEMP 36.6; O2SAT 100
[2023-11-21] MEDS: Aspirin 81 MG TAB.CHEW PO (08:43)
[2023-11-21] MEDS: oxyBUTYnin chloride ER 5 MG TAB.ER.24 PO (08:43)
[2023-11-21] MEDS: 0.9 % Sodium Chloride Flush 3 ML SYRINGE IVFLUSH ×3 (08:44→23:24)
[2023-11-21] MEDS: Calcium + Vitamin D 250 MG TABLET PO (08:45)
[2023-11-21] MEDS: Lactulose 20 GM/30 ML SOLUTION PO ×2 (10:21→20:54)
[2023-11-21] MEDS: Docusate Sodium 100 MG CAPSULE PO ×2 (10:21→20:54)
--- NOTE | 2023-11-21 11:16 | HO.PM.IMPN ---
Subjective Subjective Date of Service: 11/21/23 Interval History: seen and evaluated reports pain in upper and lower extremitites little better Cr at 1.2 blood cultures growing Proteus Review of Systems Review of Systems: Yes all other systems are reviewed and are negative Physical Exam Vital Signs: Vital Signs: Last Vital Signs Temp 97.9 F 11/21/23 07:31 Pulse 72 11/21/23 07:31 Resp 18 11/21/23 07:31 BP 126/60 11/21/23 07:31 Pulse Ox 100 11/21/23 07:31 O2 Del Method Room Air 11/21/23 07:31 BMI result Body Mass Index 30.8 Const: Other: Constitutional : interactive, not in distress Cardiovascular : no JVP, no lower extremity edema Respiratory : bilateral chest movement, not in resp distress Gastrointestinal: soft, lax, Non tender Skin : Warm, Dry Neurological : Alert & oriented , No focal deficit Objective Data Active Medications Acetaminophen (Acetaminophen 325 Mg Tablet) 650 mg PO Q6H PRN PRN Reason: Pain, Mild (Pain Scale 1-3), fever or headache Last Admin: 11/20/23 21:53 Dose: 650 mg Documented By: ROSIO Albuterol Sulfate (Albuterol Sulfate 90 Mcg 8 Gm Inhaler) 2 puff INHALE Q6H PRN PRN Reason: wheezing Aspirin (Aspirin 81 Mg Tab.Chew) 81 mg PO DAILY [facility] Last Admin: 11/21/23 08:43 Dose: 81 mg Documented By: AMALIA Benzonatate (Benzonatate 100 Mg Capsule) 100 mg PO TID PRN PRN Reason: Cough Calcium Carbonate (Calcium Carbonate 750 Mg Tab.Chew) 750 mg PO Q4H PRN PRN Reason: Heartburn Calcium Carbonate/Cholecalciferol (Calcium + Vitamin D 250 Mg Tablet) 1 mg PO DAILY [facility] Last Admin: 11/21/23 08:45 Dose: 1 mg Documented By: AMALIA Docusate Sodium (Docusate Sodium 100 Mg Capsule) 100 mg PO BID [facility] Last Admin: 11/21/23 10:21 Dose: 100 mg Documented By: AMALIA Heparin Sodium (Porcine) (Heparin Sodium,Porcine 5,000 Unit/Ml Vial) 5,000 unit SUBCUT Q12H [facility] Last Admin: 11/21/23 10:21 Dose: 5,000 unit Documented By: AMALIA Ceftriaxone Sodium 1 gm/ (Sodium Chloride) 50 mls @ 100 mls/hr IV Q24H [facility] Last Infusion: 11/21/23 07:07 Dose: Infused Documented By: ROSIO Lactulose (Lactulose 20 Gm/30 Ml Solution) 20 gm PO BID [facility] Last Admin: 11/21/23 10:21 Dose: 20 gm Documented By: AMALIA Levothyroxine Sodium (Levothyroxine Sodium 75 Mcg Tablet) 75 mcg PO DAILY@0630 [facility] Last Admin: 11/21/23 05:59 Dose: 75 mcg Documented By: ROSIO Melatonin (Melatonin 3 Mg Tablet) 6 mg PO BEDTIME PRN PRN Reason: Insomnia Ondansetron HCl (Ondansetron Hcl 4 Mg/2 Ml Vial) 4 mg IVPUSH Q8H PRN PRN Reason: Nausea and Vomiting Oxybutynin Chloride (Oxybutynin Chloride Er 5 Mg Tab.Er.24) 5 mg PO DAILY [facility] Last Admin: 11/21/23 08:43 Dose: 5 mg Documented By: AMALIA Polyethylene Glycol (Polyethylene Glycol 3350 17 Gm Powd.Pack) 17 gm PO DAILY PRN PRN Reason: Constipation Sodium Chloride (0.9 % Sodium Chloride Flush 3 Ml Syringe) 3 ml IVFLUSH QSHIFT [facility] Last Admin: 11/21/23 08:44 Dose: 3 ml Documented By: AMALIA Trazodone HCl (Trazodone Hcl 25 Mg Halftab) 25 mg PO BEDTIME [facility] Last Admin: 11/20/23 21:51 Dose: 25 mg Documented By: ROSIO Labs 11/19/23 19:23 11/21/23 06:27 Labs: Laboratory Results - last 24 hr 11/21/23 06:27 Anion Gap 13 Estim Creat Clear Calc 35.4 Estimated GFR 42 Random Glucose 90 Calcium 9.1 Microbiology Microbiology Results: Microbiology 11/20/23 05:42 Blood Culture - Preliminary Blood - Venous Gram negative steff 11/20/23 05:42 Blood Culture - Preliminary Blood - Venous Proteus species Assessment and Plan (1) Physical deconditioning: Status: Acute (2) WADE (acute kidney injury): Status: Acute (3) Bacteremia due to Proteus species: Status: Acute Plan Pt is an 88-year-old female with a PMH significant for?HTN, HLD, hypothyroidism, [id number] type 2 diabetes, and spinal stenosis who presents to the ED with?tingling and weakness of upper and lower extremities bilaterally. Pt will be admitted to the hospital for treatment further evaluation of generalized weakness in the setting of WADE. WADE on CKD3 likely prerenal from decrease PO Cr better at 1.2 this morning follow BMP encourage PO intake and avoid nephrotoxins PRoteus bacteremia was not septic blood cultures positive, pending urine on Ceftriaxone Physical deconditioning PT evaluation chronic Numbness and tingling in extremities 2/2 chronic cervical myelopathy followed up with Neurosurgery who suggest anterior cervical diskectomy and fusion She will need to follow up with neurosurgery for surgical treatment Elevated troponins Trended negative EKG without significant ischemic changes in setting of CKD HTN restart home meds when appropriate Non-insulin dependent type 2 diabetes melitus Hold metformin SSI, diabetic diet Hypothyroidism Continue levothyroxine DVT Prophylaxis: Heparin Pt will require a hospitalization of overnight for treatment of?generalized weakness in the setting of WADE. Patient require administration of IVF, pending final blood cultures and Physical therapy. Quality Stroke Does the patient have a stroke diagnosis?: No VTE Prior VTE?: No VTE Risk Level:: Medical - moderate - high VTE Device Contraindication: Treatment Not Indicated VTE Drug Contraindication: N/A - Med Ordered
[2023-11-21 11:39] VITALS: BP 141/72; PULSE 83; RESP 18; TEMP 36.6; O2SAT 98
[2023-11-21 15:42] VITALS: BP 141/67; PULSE 92; RESP 18; TEMP 36.7; O2SAT 97
[2023-11-21 20:00] VITALS: BP 148/69; PULSE 97; RESP 20; TEMP 36.7; O2SAT 98
[2023-11-21] MEDS: traZODone HCL 25 MG HALFTAB PO (20:54)
[2023-11-21] MEDS: Acetaminophen 325 MG TABLET 650 MG PO (20:54)
[2023-11-22] VITALS: BP 116/62; PULSE 92; RESP 14; TEMP 36.6; O2SAT 96
[2023-11-22 03:47] VITALS: BP 113/60; PULSE 84; RESP 14; TEMP 36.6; O2SAT 98
[2023-11-22] MEDS: cefTRIAXone sodium 1 GM in 0.9 % Sodium Chloride 50 ML IV (05:21)
[2023-11-22] MEDS: Levothyroxine Sodium 75 MCG TABLET PO (05:22)
[2023-11-22] MEDS: Acetaminophen 325 MG TABLET 650 MG PO (06:11)
[2023-11-22 07:33] VITALS: BP 131/61; PULSE 83; RESP 20; TEMP 36.4; O2SAT 99
[2023-11-22] MEDS: oxyBUTYnin chloride ER 5 MG TAB.ER.24 PO (09:22)
[2023-11-22] MEDS: Docusate Sodium 100 MG CAPSULE PO (09:22)
[2023-11-22] MEDS: 0.9 % Sodium Chloride Flush 3 ML SYRINGE IVFLUSH (09:24)
[2023-11-22] MEDS: Aspirin 81 MG TAB.CHEW PO (09:26)
[2023-11-22] MEDS: Lactulose 20 GM/30 ML SOLUTION PO (09:26)
[2023-11-22] MEDS: Calcium + Vitamin D 250 MG TABLET PO (09:26)
--- NOTE | 2023-11-22 09:37 | HO.WOUND ---
Wound Consult: Initial 88yr old?female admitted to [facility] on 11/19/23 - See progress notes and H&P for detailed history.? Wound consult placed for Coccyx wound POA.? Patient agreeable to assessment and photo documentation.? Patient is Sinhala speaking and oil well services supervisor present throughout consultation. Coccyx Etiology: Stage 2 Pressure injury??Present on Admission Measurements: 0.2cm x 0.2cm x 0.1cm Wound Bed: clean pink moist wound bed over bony coccyx Drainage / Odor: None noted Edges: ? attached Felecia wound: ?MASD (Moisture Associated Skin Damage) red pink blanchble throughout No Induration, Fluctuance or Warmth noted Pain: denies Goals of Treatment: ? Barrier cream to protect from friction and moisture and allow for moist wound healing Recommendations: 1. Turn and Reposition every 2 hours and as needed for patient comfort.? Use pillows or wedges to support off loading positions. 2. Off Load all bony prominences with use of pillows and heel boots if needed.? Apply Preventative foams where needed. ? 3. Monitor for incontinence and moisture control, use barrier creams when needed for prevention and treatment. 4. Provide adequate and supplemental nutrition.? 5. Order or Continue low air loss mattress. 6. When applicable maintain blood glucose levels per Providers order. 7. Coccyx and buttock - Off Load Pressure - Cleanse with PH balance wipes, pat dry. ?Apply thin layer of barrier cream to wound bed. Reapply thin layer twice a day and PRN after each episode of incontinence. Re-consult wound care Nurse for wound deterioration or wound changes.
[2023-11-22 10:26] VITALS: BMI 30.8
--- NOTE | 2023-11-22 10:29 | MHC.CLN ---
PT WITH INCREASED NUTRITION RISK R/T PRESSURE INJURY PT REPORTED POOR PO PRIOR TO ADMISSION DIET RX: 2000DM-APPROPRIATE RECOMMEND ADDING ENSURE MAX BID TO PROMOTE WOUND HEALING SUPP TO PROVIDE 300KCALS, 60G PROTEIN MONITOR PO INTAKE AND ENCOURAGE SUPPLEMENTS SEE ALSO FULL CLINICAL NUTRITION ASSESSMENT
[2023-11-22 11:39] VITALS: BP 137/88; PULSE 84; RESP 20; TEMP 36.3; O2SAT 98
[2023-11-22] MEDS: Heparin Sodium,Porcine 5,000 UNIT/ML VIAL 5000 UNIT SUBCUT (12:19)
--- NOTE | 2023-11-22 13:16 | P.F2F_ITS ---
Service Date Service Date: 11/22/23 Encounter Date of encounter: 11/22/23 Reasons for Services Signs and symptoms assessed: physical deconditionig Reason for physical therapy: home safety and mobility and therapeutic exercises Homebound: Leaving the home is medically contraindicated at this time without the asist of a device and/or another person due th the listed conditions above and below. Reason homebound: unsteady gait / fall risk Certification: Based on the above findings, I certify that this patient is confined to the home and needs intermittent correction care, physical therapy and/or speech therapy, or continues to need occupational therapy. The patient is under my care, and I have initiated the establishment of the plan of care. The patient will be followed by a physician who will periodically review the plan of care. Time Spent With Patient Time: Total time managing care of this patient today ____ minutes.
--- NOTE | 2023-11-22 13:23 | PM.DS ---
DS: Providers Provider Date of Service: 11/22/23 Date of admission: 11/19/23 23:07 Primary care physician: Unknown Physician Consults: 11/21/23 08:00 Consult to Wound Care Routine Reason for consultation: ?pressure injury to coccyx Has provider been notified: Yes DS: Diagnosis Discharge Diagnosis (1) Physical deconditioning: Status: Acute (2) WADE (acute kidney injury): Status: Acute (3) Bacteremia due to Proteus species: Status: Acute (4) Urinary tract infection: Status: Acute (5) Bacteremia due to Escherichia coli: Status: Acute DS: Summary Hospital Course Hospital Course: Admission note HPI Pt is an 88-year-old female with a PMH significant for?HTN, HLD, hypothyroidism, [id number] type 2 diabetes, and spinal stenosis who presents to the ED with?tingling and weakness of upper and lower extremities bilaterally. Patient has been experiencing symptoms after suffering a mechanical fall while still in [place] approximately 5 months ago. 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 Was seen and evaluated by Physical therapy at that time who recommended short term rehab, however patient did not have health insurance and was unwilling to both pay [id number] and be away from her son who has Down syndrome and whom she needs to take care of. The patient has since presented with similar symptoms on 09/19 and again on 10/22 when she likewise complained of shortness of breath. Workup on 10/22 included CTA of chest negative for pulmonary embolism and negative serial troponins. Patient was again offered short-term rehab which she refused. On 09/23 patient followed up with Dr. Bethea in Neurosurgery, who offered the patient a C3-4, C4-5 ACDF to address her cervical myelopathy. Goal of surgery was 2 Holter progression of her symptoms and not to ameliorate her current establish symptoms which are likely permanent and a result of prolonged spinal cord compression. Patient has not yet undergone surgical intervention. Patient presents to the emergency room today due to continued upper and lower extremity numbness, tingling, and weakness which appears around baseline. Patient also complains of shoulder pain which she has also been experiencing since her mechanical fall in [place] sometime at the beginning of this year. Also reports one brief episode of shortness of breath earlier today that has since resolved, and some chest pain especially noticeable when she moves or twists her torso. States she has not been eating or drinking much lately. Denies fever, chills, nausea, vomiting, abdominal pain. In the ED pt was hypertensive up to 156/71 and had elevated heart rate of 94. Labs were significant for elevated creatinine of 1.34, up from 0.94 on 10/23/2023, otherwise grossly unremarkable and around baseline for patient. No leukocytosis. Stable normocytic anemia of 10.4/31.9. No significant electrolyte abnormalities. Hepatic function around baseline. Initial troponin 13.1. CXR showed chronic appearing changes but no acute superimposed airspace disease. EKG demonstrated normal sinus rhythm without evidence of significant ischemic changes. Pt will be admitted to the hospital for treatment further evaluation of generalized weakness in the setting of WADE. Hospital course E.Coli and PRoteus bacteremia secondary to urine infection as the current urine culture grew Pansensitive E.Coli and a previous culture from late August grew Proteus. Started on IV Ceftriaxone as both culutres were pansensitive to antiobitics. she denied any fever or chills. felt little stronger as weakness improved. To be discharged on Ceftin for 10 more days. was not septic blood cultures positive, pending urine on Ceftriaxone WADE on CKD3 likely prerenal from decrease PO. Cr better at 1.2 this morning follow BMP encourage PO intake and avoid nephrotoxins Physical deconditioning PT evaluation Discharge plan Continue Ceftin for 10 more days PHysical therapy at home Time Attestation Discharge Coordination Time (in mins): 38 Quality: Safe Use of Opioids Does Pt have an Active Cancer Diagnosis on the Problem List?: No Quality: Stroke Does the patient have a stroke diagnosis?: No Physical Exam Vital Signs: Vital Signs: Last Vital Signs Temp 97.4 F 11/22/23 11:39 Pulse 84 11/22/23 11:39 Resp 20 11/22/23 11:39 BP 137/88 11/22/23 11:39 Pulse Ox 98 11/22/23 11:39 O2 Del Method Room Air 11/22/23 11:39 BMI result Body Mass Index 30.8 Const: Other: Constitutional : interactive, not in distress Cardiovascular : no JVP, no lower extremity edema Respiratory : bilateral chest movement, not in resp distress Gastrointestinal: soft, lax, Non tender Skin : Warm, Dry Neurological : Alert & oriented , No focal deficit Discharge Plan Discharge Anticipated Discharge Date/Time: 11/22/23 13:12 Patient Disposition: Home Health Service Discharge Diagnosis: E.Coli Bacteremia Referrals: Physician,Unknown J [Primary Care Provider] - 1 Week Discharge Medications: New cefuroxime axetil 500 mg tablet 500 mg PO BID Qty: 20 0RF Continued enalapril maleate 10 mg tablet 10 mg PO DAILY trazodone 50 mg tablet 25 mg PO BEDTIME oxybutynin chloride 5 mg tablet extended release 24hr 5 mg PO DAILY aspirin 81 mg tablet,chewable 1 tab PO DAILY albuterol sulfate [Ventolin HFA] 90 mcg/actuation HFA aerosol inhaler 2 puff INHALATION Q6H PRN (Reason: wheezing) calcium carbonate-vitamin D3 600 mg-20 mcg (800 unit) tablet 1 tab PO DAILY metformin 500 mg tablet 500 mg PO DAILY simvastatin 40 mg tablet 40 mg PO BEDTIME levothyroxine [Synthroid] 75 mcg tablet 75 mcg PO DAILY acetaminophen 325 mg Tablet 650 mg PO Q6H PRN (Reason: Pain (Scale Score 1-3)) Discharge Orders: Discharge Order (Routine); Ordered 11/22/23 Ordered By: Hong Gallego Diet: Advance to usual diet Activity on Discharge: As tolerated Stand Alone Forms: Patient Portal Discharge page Print Language: Azeri Activity Restrictions/Additional Instructions: Care Plan Goals: You have urine infection complicated with blood stream infection with 2 bacterias, E.Coli and Proteus both sensitive to antibiotics. treated with IV Ceftriaxone with good response and evaluated by PT team who recommended short term rehab but you prefer going back home. will do therapy at home. Continue Ceftin for 10 more days PHysical therapy at home Health Concerns: Read below Plan of Treatment: Read below Assessment: Read below Patient Instructions: Knee Pain (ED), Shortness of Breath (ED) Discharge Date/Time: 11/22/23 14:03
--- NOTE | 2023-11-22 13:30 | MHC.CM.PN ---
PT is recommending [facility]; per MD, Patient has refused to go to [facility]. Per MD's request, CM spoke with Primary Contact/HCP/Son Kev at listed # and thoroughly explained the dc plan (home today/self care, initial appointment with PCP @ [facility] on 11/26/2023, get a referral for VNA, from the PCP on the if MD deems this appropriate); Kev is in agreement with this plan. MD has been made aware.Last IMM addressed on 11/20/2023.
--- NOTE | 2023-11-23 13:46 | P.CDIM_ITS ---
PROVIDER RESPONSE TEXT: To clarify, the appropriate diagnosis supported by the clinical indicators: Mild intermittent QUERY TEXT: PHYSICIAN'S DOCUMENTATION REQUEST Date of Query: 11/22/2023 07:41 AM EDT Patient Name: Orin Hernandez Admit Date: 11/20/2023 Dear Hong Gallego, A review of the medical record indicates additional documentation may be needed. Please review below and update the documentation accordingly. Clinical indicators: H&P: Asthma Experienced one episode of shortness of breath Home medication: Albuterol ED: Albuterol sulfate 2 puff inhale Q6H PRN Based on the above, please clarify in the Progress Notes further specificity regarding the type of as thma: Mild intermittent Mild persistent Moderate persistent Severe persistent Other (explain) Clinically unable to determine (explain) Thank you, Oliva Sarabia, CCS, CDIS Use of terms such as suspected, likely, concern for, or probable (associated with a specific diagnosi s that is being evaluated, monitored, or treated as if it exists) are acceptable and can be coded in the inpatient se tting, when documented at the time of discharge. Please use your independent medical judgment in providing your response. THIS QUERY IS PART OF THE PERMANENT MEDICAL RECORD
== END 2023-11-22 14:03 | disposition home health service (06) | DRG 690 ==
LOC: HO.ED 21:07 → HO.EDOVER 23:20 → HO.IMC 11-20 07:32
PROVIDERS: Internal Medicine; Admitting Provider Student in an Organized Health Care Education/Training Program; Emergency Provider Emergency Medicine; Visit Provider Student in an Organized Health Care Education/Training Program
DX: N39.0 Urinary tract infection, site not specified (principal); N17.9 Acute kidney failure, unspecified; R78.81 Bacteremia; M50.01 Cervical disc disorder with myelopathy, high cervical region; E86.0 Dehydration; I12.9 Hypertensive chronic kidney disease with stage 1 through stage 4 chronic kidney disease, or unspecified chronic kidney disease; N18.30 Chronic kidney disease, stage 3 unspecified; J45.20 Mild intermittent asthma, uncomplicated; D63.1 Anemia in chronic kidney disease; E03.9 Hypothyroidism, unspecified; B96.20 Unspecified Escherichia coli [E. coli] as the cause of diseases classified elsewhere; B96.4 Proteus (mirabilis) (morganii) as the cause of diseases classified elsewhere; E11.22 Type 2 diabetes mellitus with diabetic chronic kidney disease; Z20.822 Contact with and (suspected) exposure to COVID-19; Z91.040 Latex allergy status; Z79.82 Long term (current) use of aspirin; Z79.899 Other long term (current) drug therapy
CPT/HCPCS: 0241U; 36415; 71046; 80048; 80076; 81001; 82306; 82607; 82746; 83690; 83880; 84484; 85025; 87040; 87077; 87086; 87088; 87186; 87205; 93005; 97162; 99285; J0696; J1644

== ENCOUNTER → 2023-11-19 18:46 | Outpatient (BNV) | payer MEDICARE, MEDICAID, SELFPAY | PROVIDERS: Admitting Provider Student in an Organized Health Care Education/Training Program; Emergency Provider Emergency Medicine; Visit Provider Internal Medicine Cardiovascular Disease | DX: R06.02 Shortness of breath (principal) | CPT/HCPCS: 93010 ==

== ENCOUNTER → 2023-11-19 23:07 | Outpatient (BNV) | payer MEDICARE, MEDICAID, SELFPAY | PROVIDERS: Admitting Provider Student in an Organized Health Care Education/Training Program; Emergency Provider Emergency Medicine; Visit Provider Student in an Organized Health Care Education/Training Program | DX: N17.9 Acute kidney failure, unspecified (principal); R78.81 Bacteremia; B96.4 Proteus (mirabilis) (morganii) as the cause of diseases classified elsewhere; B96.20 Unspecified Escherichia coli [E. coli] as the cause of diseases classified elsewhere; N39.0 Urinary tract infection, site not specified; R53.81 Other malaise | CPT/HCPCS: 99222; 99232; 99239; G0180 ==

== ENCOUNTER 2023-11-29 09:55 | Outpatient (AMB) | payer MEDICARE, MEDICAID, SELFPAY ==
[2023-11-29 10:06] VITALS: BMI 34.3
--- NOTE | 2023-11-29 10:06 | MHC.OFFVIS ---
Vital Signs 11/29/23 10:06 Height 5 ft 4 in Weight 200 lb BMI 34.3 Intake Visit Reasons: Neck pain, Bilateral knee pain Intake Note: Orin is an 88 yr old female who presents with complaints of progressively worsening neck pain as well as bilateral knee pains. The patient describes her neck pain as sharp in nature. Her neck pain has gotten worse over the last few years in spite of continued non operative treatments. The patient also reports intermittent weakness in both of her legs. She states that she has fallen several times because of the weakness. The patient denies any locking or giving way in her knees. She has tried Tylenol and anti-inflammatory medicines which gave her minimal relief. Allergies latex [LATEX] Allergy (Intermediate, Verified 11/29/23 10:07) RASH Medication List - Last Reconciled 11/29/23 by Chago Graves MD acetaminophen 650 mg PO Q6H PRN albuterol sulfate 90 mcg/actuation (Ventolin HFA) 2 puffs inhalation Q6H PRN aspirin 1 tab PO DAILY calcium carbonate-vitamin D3 600 mg-20 mcg (800 unit) 1 tab PO DAILY cefuroxime axetil 500 mg PO BID enalapril maleate 10 mg PO DAILY levothyroxine (Synthroid) 75 mcg PO DAILY metformin 500 mg PO DAILY oxybutynin chloride ER 5 mg PO DAILY simvastatin 40 mg PO BEDTIME trazodone 25 mg PO BEDTIME PFS Medical History Anxiety Depression Arthritis UTI (urinary tract infection) GERD (gastroesophageal reflux disease) Renal calculi Asthma HTN (hypertension) Elevated cholesterol Diabetes Hypothyroid Cervical spinal stenosis Surgical History Hx of hand surgery History of bladder surgery Hx of right knee surgery Hx of blepharoplasty Hx of lithotripsy Hx of cholecystectomy Hx of hysterectomy Hx of tubal ligation Hx of dilation and curettage H/O colonoscopy Social History Household Members: Family Housing: Apartment Do you presently have visiting nurse or other home services: No Patient Tobacco Use Status: Never used Tobacco Advance Directives Date on File: 07/21/23 service: No Physical Exam Vital Signs: BMI result Body Mass Index 34.3 Const Other: Well-nourished well-developed very friendly female awake alert and oriented x3 in no acute distress Neck Other: Cervical spine examination shows pain with range of motion, bilateral paraspinal muscle tenderness, positive Spurling's test Extrem Other: Bilateral knee examination shows minimal effusions, palpable crepitus with range of motion, no instability Results Reviewed Results Reviewed: X-rays of the patient's bilateral knee show joint space narrowing, subchondral sclerosis, no acute bony abnormalities Assessment & Plan Assessment & Plan (1) Pain in both knees: Code(s): M25.561 - Pain in right knee; M25.562 - Pain in left knee Plan Ms. Hernandez presents with progressively worsening neck pain as well as lower extremity weakness possibly due to cervical stenosis. Thus, I will send the patient for an MRI of her cervical spine for further evaluation. She also has intermittent knee discomfort due to degenerative joint disease. We will hold off on a cortisone injection at this time. She will contact me prior to her follow-up appointment should her symptoms worsen in any way. I spent 20 minutes in reviewing the patient's records and imaging studies, seeing the patient and documenting in the medical record. Orders: Orders MR cervical spine wo con Today M54.2 - Cervicalgia Coding Level of Care Code New Pt Level 3 (75428) Diagnoses Pain in both knees M25.561; M25.562
== END 2023-11-29 10:24 | disposition home or self-care (01) ==
PROVIDERS: Visit Provider Orthopaedic Surgery
DX: M25.561 Pain in right knee (principal); M25.562 Pain in left knee; M54.2 Cervicalgia
CPT/HCPCS: 99203

== ENCOUNTER → 2023-11-29 09:55 | Outpatient (BNVA) | payer MEDICARE, MEDICAID, SELFPAY | PROVIDERS: Visit Provider Orthopaedic Surgery | DX: M25.561 Pain in right knee (principal); M25.562 Pain in left knee; M54.2 Cervicalgia | CPT/HCPCS: 99202 ==

== ENCOUNTER 2023-12-27 11:02 | Outpatient (REF) | payer MEDICARE, MEDICAID, SELFPAY ==
[2023-12-27 13:50] LABS: Alanine Aminotransferase 9 U/L (0-31); Alkaline Phosphatase 93 U/L (39-117); Anion Gap 14 (12-20); Aspartate Amino Transferase 15 U/L (5-31); Bilirubin Total 0.7 mg/dL (0.0-1.0); Blood Urea Nitrogen 29 mg/dL (9-16); Calcium 9.6 mg/dL (8.4-10.2); Carbon Dioxide 24 mmol/L (22-29); Chloride 109 mmol/L (96-108); Cholesterol 109 mg/dL (<200); Estimated Glomerular Filt Rate 44; Glucose Random 91 mg/dL (60-115); HDL Cholesterol 49 mg/dL (>40); LDL Cholesterol Calculated 43 mg/dL (<100); Potassium 4.7 mmol/L (3.3-5.1); Sodium 142 mmol/L (135-145); Total Protein 7.8 g/dL (6.5-8.0); Triglycerides 87 mg/dL (<150)
[2023-12-27 14:22] LABS: Folate 6.6 ng/mL (> or = 4.0); Vitamin B12 414 pg/mL (200-900)
== END 2023-12-27 11:03 | disposition home or self-care (01) ==
LOC: HO.HHCL 11:02
PROVIDERS: Referring Provider Student in an Organized Health Care Education/Training Program; Visit Provider Internal Medicine
DX: E11.9 Type 2 diabetes mellitus without complications (principal)
CPT/HCPCS: 36415; 80053; 80061; 82607; 82746